=== PATIENT | female | born 1945 | race Caucasian/White ===

== ENCOUNTER → 2017-09-24 05:00 | Outpatient (REF) | payer MEDICARE, BC, MEDICAID, SELFPAY ==
[2017-09-24 11:21] LABS: Prothrombin Time Fingerstick 21.2 SEC (11.9-14.4)
== END ==
LOC: OLS.WCC 05:00
PROVIDERS: Visit Provider Family Medicine
DX: Z79.01 Long term (current) use of anticoagulants (principal)
CPT/HCPCS: 36416; 85610

== ENCOUNTER → 2017-10-01 05:00 | Outpatient (REF) | payer MEDICARE, BC, SELFPAY ==
[2017-10-01 08:45] LABS: Prothrombin Time Fingerstick 28.5 SEC (11.9-14.4)
== END ==
LOC: OLS.WCC 05:00
PROVIDERS: Visit Provider Family Medicine
DX: I48.91 Unspecified atrial fibrillation (principal); Z79.01 Long term (current) use of anticoagulants
CPT/HCPCS: 36416; 85610

== ENCOUNTER → 2017-11-30 05:30 | Outpatient (REF) | payer MEDICARE, BC, SELFPAY ==
[2017-11-30 09:34] LABS: International Normalized Ratio 1.5; Prothrombin Time (Protime)PT. 17.9 SECONDS (11.7-14.9)
== END ==
LOC: OLS.WCC 05:30
PROVIDERS: Visit Provider Family Medicine
DX: I48.91 Unspecified atrial fibrillation (principal); Z79.01 Long term (current) use of anticoagulants
CPT/HCPCS: 36415; 85610

== ENCOUNTER → 2017-12-07 05:00 | Outpatient (REF) | payer MEDICARE, BC, SELFPAY ==
[2017-12-07 09:27] LABS: International Normalized Ratio 1.8; Prothrombin Time (Protime)PT. 19.8 SECONDS (11.7-14.9)
== END ==
LOC: OLS.WCC 05:00
PROVIDERS: Visit Provider Family Medicine
DX: Z79.01 Long term (current) use of anticoagulants (principal)
CPT/HCPCS: 36415; 85610

== ENCOUNTER → 2017-12-28 04:00 | Outpatient (REF) | payer MEDICARE, BC, SELFPAY ==
[2017-12-28 07:51] LABS: ALB/GLOB Ratio 1.2 RATIO (0.9-2.4); AST(SGOT) 11 U/L (15-37); Alanine Aminotransfer ALT/SGPT 22 U/L (13-56); Albumin, Serum 3.3 g/dL (3.2-5.0); Alkaline Phosphatase 49 U/L (45-117); Anion Gap 10 (5-15); BUN 24 mg/dL (7-18); BUN/Creat Ratio 21.2 RATIO (10-20); Bilirubin, Direct 0.11 mg/dL (0.00-0.30); Calcium,Total 9.2 mg/dL (8.5-10.1); Chloride 103 mmol/L (98-107); Creatinine, Serum 1.13 mg/dL (0.55-1.02); EST Glomerular Filtration Rate 50 mL/min (>60); Est Glom Filt Rate - Afr Amer 61 mL/min (>60); Globulin 2.7 g/dL (2.2-4.2); Glucose 112 mg/dL (74-106); Potassium 3.9 mmol/L (3.5-5.1); Sodium Level 140 mmol/L (136-145)
[2017-12-28 07:53] LABS: Hemoglobin A1c 5.8 % (4.2-6.3)
[2017-12-28 08:21] LABS: International Normalized Ratio 2.5; Prothrombin Time (Protime)PT. 26.9 SECONDS (11.7-14.9)
== END ==
LOC: OLS.WCC 04:00
PROVIDERS: Visit Provider Family Medicine
DX: I48.91 Unspecified atrial fibrillation (principal); E11.9 Type 2 diabetes mellitus without complications; I10 Essential (primary) hypertension; E78.5 Hyperlipidemia, unspecified
CPT/HCPCS: 36415; 80053; 82248; 83036; 85610

== ENCOUNTER → 2018-01-25 05:00 | Outpatient (REF) | payer MEDICARE, BC, SELFPAY ==
[2018-01-25 09:19] LABS: International Normalized Ratio 2.4; Prothrombin Time (Protime)PT. 26.2 SECONDS (11.7-14.9)
== END ==
LOC: OLS.WCC 05:00
PROVIDERS: Visit Provider Family Medicine
DX: I48.91 Unspecified atrial fibrillation (principal); Z79.01 Long term (current) use of anticoagulants
CPT/HCPCS: 36415; 85610

== ENCOUNTER → 2018-02-28 05:00 | Outpatient (REF) | payer MEDICARE, BC, SELFPAY ==
[2018-02-28 08:31] LABS: Prothrombin Time Fingerstick 29.4 SEC (11.9-14.4)
== END ==
LOC: OLS.WCC 05:00
PROVIDERS: Visit Provider Family Medicine
DX: I48.91 Unspecified atrial fibrillation (principal); Z79.01 Long term (current) use of anticoagulants
CPT/HCPCS: 36416; 85610

== ENCOUNTER → 2018-04-01 05:00 | Outpatient (REF) | payer MEDICARE, BC, SELFPAY ==
[2018-04-01 09:47] LABS: International Normalized Ratio 2.4; Prothrombin Time (Protime)PT. 26.6 SECONDS (11.7-14.9)
== END ==
LOC: OLS.WCC 05:00
PROVIDERS: Visit Provider Family Medicine
DX: I48.91 Unspecified atrial fibrillation (principal); Z79.899 Other long term (current) drug therapy
CPT/HCPCS: 36415; 85610

== ENCOUNTER → 2018-04-30 05:00 | Outpatient (REF) | payer MEDICARE, BC, SELFPAY ==
[2018-04-30 08:46] LABS: Prothrombin Time Fingerstick 22.5 SEC (11.9-14.4)
== END ==
LOC: OLS.WCC 05:00
PROVIDERS: Visit Provider Family Medicine
DX: I48.91 Unspecified atrial fibrillation (principal); Z79.01 Long term (current) use of anticoagulants
CPT/HCPCS: 36416; 85610

== ENCOUNTER → 2018-05-31 05:00 | Outpatient (REF) | payer MEDICARE, BC, SELFPAY ==
[2018-05-31 09:26] LABS: Prothrombin Time Fingerstick 18.1 SEC (11.9-14.4)
== END ==
LOC: OLS.WCC 05:00
PROVIDERS: Visit Provider Family Medicine
DX: I48.91 Unspecified atrial fibrillation (principal); Z79.01 Long term (current) use of anticoagulants
CPT/HCPCS: 36416; 85610

== ENCOUNTER → 2018-07-01 05:00 | Outpatient (REF) | payer MEDICARE, BC, SELFPAY ==
[2018-07-01 08:20] LABS: Hematocrit 37.6 % (37-47); Hemoglobin 12.5 g/dl (12.0-15.0); Mean Corp Hgb Conc 33.2 g/gl (32-36); Mean Corpuscular Hgb 28.2 pg (27.0-32.0); Mean Corpuscular Volume 84.7 fL (81-99); Mean Platelet Vol. 9.5 fl (6.2-12.0); Platelet Count 245 K/mm3 (150-450); RBC Distribution Width CV 13.1 % (11.6-14.6); RBC Distribution Width SD 40.2 fl (35.1-43.9); Red Blood Count 4.44 M/mm3 (4.2-5.4)
[2018-07-01 08:21] LABS: Scan Indicated on CBC? Y/N NO
[2018-07-01 08:43] LABS: ALB/GLOB Ratio 1.1 RATIO (0.9-2.4); AST(SGOT) 12 U/L (15-37); Alanine Aminotransfer ALT/SGPT 19 U/L (13-56); Albumin, Serum 3.5 g/dL (3.2-5.0); Alkaline Phosphatase 61 U/L (45-117); Anion Gap 13 (5-15); BUN 16 mg/dL (7-18); BUN/Creat Ratio 14.8 RATIO (10-20); Bilirubin, Direct 0.14 mg/dL (0.00-0.30); Calcium,Total 9.2 mg/dL (8.5-10.1); Chloride 102 mmol/L (98-107); Creatinine, Serum 1.08 mg/dL (0.55-1.02); EST Glomerular Filtration Rate 53 mL/min (>60); Est Glom Filt Rate - Afr Amer 64 mL/min (>60); Globulin 3.2 g/dL (2.2-4.2); Glucose 90 mg/dL (74-106); Potassium 3.8 mmol/L (3.5-5.1); Protein, Total 6.7 g/dL (6.4-8.2); Sodium Level 143 mmol/L (136-145); T4 Free Direct 1.09 ng/dL (0.76-1.46); Thyroid Stim Hormone (TSH) 1.08 uIU/mL (0.358-3.74)
[2018-07-01 09:16] LABS: Hemoglobin A1c 5.6 % (4.2-6.3)
== END ==
LOC: OLS.WCC 05:00
PROVIDERS: Visit Provider Family Medicine
DX: I48.91 Unspecified atrial fibrillation (principal); E11.9 Type 2 diabetes mellitus without complications; I10 Essential (primary) hypertension; Z79.01 Long term (current) use of anticoagulants
CPT/HCPCS: 36415; 80053; 82248; 83036; 84439; 84443; 85027

== ENCOUNTER → 2018-07-19 14:35 | Outpatient (REF) | payer MEDICARE, SELFPAY ==
[2018-07-19 16:08] LABS: International Normalized Ratio 1.7; Prothrombin Time (Protime)PT. 19.8 SECONDS (11.7-14.9)
== END ==
LOC: OLS.WCC 14:35
PROVIDERS: Visit Provider Family Medicine
DX: I48.91 Unspecified atrial fibrillation (principal)
CPT/HCPCS: 36415; 85610

== ENCOUNTER → 2018-07-31 05:00 | Outpatient (REF) | payer MEDICARE, BC, SELFPAY ==
[2018-07-31 09:06] LABS: Prothrombin Time Fingerstick 17.8 SEC (11.9-14.4)
== END ==
LOC: OLS.WCC 05:00
PROVIDERS: Visit Provider Family Medicine
DX: I48.91 Unspecified atrial fibrillation (principal); Z79.01 Long term (current) use of anticoagulants
CPT/HCPCS: 36416; 85610

== ENCOUNTER → 2018-08-14 05:00 | Outpatient (REF) | payer MEDICARE, BC, SELFPAY ==
[2018-08-14 08:40] LABS: Prothrombin Time Fingerstick 27.4 SEC (11.9-14.4)
== END ==
LOC: OLS.WCC 05:00
PROVIDERS: Visit Provider Family Medicine
DX: Z79.01 Long term (current) use of anticoagulants (principal)
CPT/HCPCS: 36416; 85610

== ENCOUNTER → 2018-08-30 05:00 | Outpatient (REF) | payer MEDICARE, SELFPAY ==
[2018-08-30 07:11] LABS: Prothrombin Time Fingerstick 20.7 SEC (11.9-14.4)
== END ==
LOC: OLS.WCC 05:00
PROVIDERS: Visit Provider Family Medicine
DX: I48.91 Unspecified atrial fibrillation (principal); E11.9 Type 2 diabetes mellitus without complications; I10 Essential (primary) hypertension
CPT/HCPCS: 36416; 85610

== ENCOUNTER → 2018-09-30 03:00 | Outpatient (REF) | payer BC, MEDICARE, MEDICAID, SELFPAY ==
[2018-09-30 09:00] LABS: Prothrombin Time Fingerstick 18.2 SEC (11.9-14.4)
== END ==
LOC: OLS.WCC 03:00
PROVIDERS: Visit Provider Family Medicine
DX: I48.91 Unspecified atrial fibrillation (principal); Z79.01 Long term (current) use of anticoagulants
CPT/HCPCS: 36416; 85610

== ENCOUNTER → 2018-10-31 05:00 | Outpatient (REF) | payer BC, MEDICARE, MEDICAID, SELFPAY ==
[2018-10-31 08:11] LABS: Prothrombin Time Fingerstick 17.6 SEC (11.9-14.4)
== END ==
LOC: OLS.WCC 05:00
PROVIDERS: Visit Provider Family Medicine
DX: I48.91 Unspecified atrial fibrillation (principal); Z79.01 Long term (current) use of anticoagulants
CPT/HCPCS: 36416; 85610

== ENCOUNTER → 2018-11-07 04:30 | Outpatient (REF) | payer BC, MEDICARE, SELFPAY ==
[2018-11-07 07:55] LABS: Prothrombin Time Fingerstick 21.7 SEC (11.9-14.4)
== END ==
LOC: OLS.WCC 04:30
PROVIDERS: Visit Provider Family Medicine
DX: Z79.01 Long term (current) use of anticoagulants (principal)
CPT/HCPCS: 36416; 85610

== ENCOUNTER → 2018-11-29 05:00 | Outpatient (REF) | payer BC, MEDICARE, MEDICAID, SELFPAY ==
[2018-11-29 07:52] LABS: Prothrombin Time Fingerstick 18.5 SEC (11.9-14.4)
== END ==
LOC: OLS.WCC 05:00
PROVIDERS: Visit Provider Family Medicine
DX: I48.91 Unspecified atrial fibrillation (principal); Z79.01 Long term (current) use of anticoagulants
CPT/HCPCS: 36416; 85610

== ENCOUNTER → 2018-12-27 04:00 | Outpatient (REF) | payer MEDICARE, MEDICAID, SELFPAY ==
[2018-12-27 09:22] LABS: Hematocrit 37.8 % (37-47); Hemoglobin 12.2 g/dl (12.0-15.0); Mean Corp Hgb Conc 32.3 g/gl (32-36); Mean Corpuscular Hgb 27.9 pg (27.0-32.0); Mean Corpuscular Volume 86.3 fL (81-99); Mean Platelet Vol. 9.4 fl (6.2-12.0); Platelet Count 241 K/mm3 (150-450); RBC Distribution Width CV 13.2 % (11.6-14.6); RBC Distribution Width SD 41.8 fl (35.1-43.9); Red Blood Count 4.38 M/mm3 (4.2-5.4); White Blood Count 8.3 K/mm3 (4.4-11.0)
[2018-12-27 09:25] LABS: Scan Indicated on CBC? Y/N NO
[2018-12-27 09:36] LABS: ALB/GLOB Ratio 1.1 RATIO (0.9-2.4); AST(SGOT) 15 U/L (15-37); Alanine Aminotransfer ALT/SGPT 21 U/L (13-56); Albumin, Serum 3.5 g/dL (3.2-5.0); Alkaline Phosphatase 58 U/L (45-117); Anion Gap 8 (5-15); BUN 18 mg/dL (7-18); BUN/Creat Ratio 15.3 RATIO (10-20); Bilirubin, Direct 0.15 mg/dL (0.00-0.30); Calcium,Total 9.1 mg/dL (8.5-10.1); Chloride 99 mmol/L (98-107); Creatinine, Serum 1.18 mg/dL (0.55-1.02); EST Glomerular Filtration Rate 48 mL/min (>60); Est Glom Filt Rate - Afr Amer 58 mL/min (>60); Globulin 3.1 g/dL (2.2-4.2); Glucose 97 mg/dL (74-106); Protein, Total 6.6 g/dL (6.4-8.2); Sodium Level 137 mmol/L (136-145)
[2018-12-27 09:46] LABS: Hemoglobin A1c 5.8 % (4.2-6.3)
== END ==
LOC: OLS.WCC 04:00
PROVIDERS: Visit Provider Family Medicine
DX: E11.9 Type 2 diabetes mellitus without complications (principal); I10 Essential (primary) hypertension
CPT/HCPCS: 36415; 80053; 82248; 83036; 85027

== ENCOUNTER → 2018-12-30 04:00 | Outpatient (REF) | payer MEDICARE, MEDICAID, SELFPAY ==
[2018-12-31 15:50] LABS: Prothrombin Time Fingerstick 21.4 SEC (11.9-14.4)
== END ==
LOC: OLS.WCC 04:00
PROVIDERS: Visit Provider Family Medicine
DX: Z79.01 Long term (current) use of anticoagulants (principal)
CPT/HCPCS: 36416; 85610

== ENCOUNTER → 2019-01-30 04:45 | Outpatient (REF) | payer MEDICARE, MEDICAID, SELFPAY ==
[2019-01-30 08:21] LABS: Prothrombin Time Fingerstick 22.6 SEC (11.9-14.4)
== END ==
LOC: OLS.WCC 04:45
PROVIDERS: Visit Provider Family Medicine
DX: I48.91 Unspecified atrial fibrillation (principal); Z79.01 Long term (current) use of anticoagulants
CPT/HCPCS: 36416; 85610

== ENCOUNTER → 2019-02-28 05:00 | Outpatient (REF) | payer MEDICARE, MEDICAID, SELFPAY ==
[2019-02-28 09:46] LABS: Prothrombin Time Fingerstick 21.3 SEC (11.9-14.4)
== END ==
LOC: OLS.WCC 05:00
PROVIDERS: Visit Provider Family Medicine
DX: I48.91 Unspecified atrial fibrillation (principal); E11.9 Type 2 diabetes mellitus without complications; Z79.01 Long term (current) use of anticoagulants
CPT/HCPCS: 36416; 85610

== ENCOUNTER → 2019-03-22 | Outpatient (REF) | payer MEDICARE, MEDICAID, SELFPAY ==
[2019-03-22 14:36] LABS: Color, Urine Yellow (Yellow); Glucose, Dipstick Normal (Normal); Ketone-Dipstick Negative (Negative); Leukocyte Esterase-Dipstick 500 /ul (Negative); Nitrite-Dipstick Negative (Negative); Occult Blood-Urine 10 /ul (Negative); Protein-Dipstick Negative (Negative); Urine Bilirubin Dipstick Negative (Negative); Urine Clarity Cloudy (Clear); Urine Urobilinogen Normal (Normal)
== END | disposition home or self-care (01) ==
LOC: OLS.WCC 13:40
DX: N39.0 Urinary tract infection, site not specified (principal)
CPT/HCPCS: 81002; 87077; 87086; 87088; 87186

== ENCOUNTER → 2019-03-24 | Outpatient (REF) | payer MEDICARE, MEDICAID, SELFPAY ==
[2019-03-24 08:45] LABS: Anion Gap 9 (5-15); BUN 17 mg/dL (7-18); BUN/Creat Ratio 14.7 RATIO (10-20); Calcium,Total 9.1 mg/dL (8.5-10.1); Chloride 100 mmol/L (98-107); Creatinine, Serum 1.16 mg/dL (0.55-1.02); EST Glomerular Filtration Rate 49 mL/min (>60); Est Glom Filt Rate - Afr Amer 59 mL/min (>60); Glucose 100 mg/dL (74-106); Sodium Level 139 mmol/L (136-145)
[2019-03-24 08:56] LABS: Absolute Neutrophil Count 3.7 X10^3/uL (2.0-7.7); Basophil# 0.03 X10^3/uL; Basophil% 0.4 % (0-1); Eosinophil# 0.54 X10^3/uL; Eosinophils% 7.2 % (0-5); Hematocrit 35.8 % (37-47); Hemoglobin 11.9 g/dl (12.0-15.0); Lymphocyte % 34.4 % (19-41); Mean Corp Hgb Conc 33.2 g/gl (32-36); Mean Corpuscular Hgb 28.3 pg (27.0-32.0); Mean Corpuscular Volume 85.2 fL (81-99); Mean Platelet Vol. 9.1 fl (6.2-12.0); Monocyte# 0.71 X10^3/uL; Monocyte% 9.4 % (0-10); Neutrophil # 3.65 X10^3/uL (2.7-7.7); Neutrophil % 48.3 % (47-70); Platelet Count 240 K/mm3 (150-450); RBC Distribution Width CV 13.5 % (11.6-14.6); RBC Distribution Width SD 42.1 fl (35.1-43.9); White Blood Count 7.6 K/mm3 (4.4-11.0)
[2019-03-24 09:02] LABS: POSITIVE COUNT NO; POSITIVE DIFFERENTIAL NO; POSITIVE MORPHOLOGY NO
== END | disposition home or self-care (01) ==
LOC: OLS.WCC 04:50
PROVIDERS: Visit Provider Family Medicine
DX: N39.0 Urinary tract infection, site not specified (principal)
CPT/HCPCS: 36415; 80048; 85025

== ENCOUNTER → 2019-04-01 | Outpatient (REF) | payer MEDICARE, MEDICAID, SELFPAY ==
[2019-04-01 07:00] LABS: Prothrombin Time Fingerstick 17.5 SEC (11.9-14.4)
== END | disposition home or self-care (01) ==
LOC: OLS.WCC 05:00
PROVIDERS: Visit Provider Family Medicine
DX: I48.91 Unspecified atrial fibrillation (principal); Z79.01 Long term (current) use of anticoagulants
CPT/HCPCS: 36416; 85610

== ENCOUNTER → 2019-04-15 | Outpatient (REF) | payer MEDICARE, MEDICAID, SELFPAY ==
[2019-04-15 16:06] LABS: Prothrombin Time Fingerstick 22.1 SEC (11.9-14.4)
== END | disposition home or self-care (01) ==
LOC: OLS.WCC 05:00
PROVIDERS: Visit Provider Family Medicine
DX: Z79.01 Long term (current) use of anticoagulants (principal)
CPT/HCPCS: 36416; 85610

== ENCOUNTER → 2019-04-30 03:40 | Outpatient (REF) | payer MEDICARE, MEDICAID, SELFPAY ==
[2019-04-30 08:34] LABS: Glucose, Dipstick 50 mg/dl (Normal); Ketone-Dipstick Negative (Negative); Leukocyte Esterase-Dipstick 100 /ul (Negative); Nitrite-Dipstick Negative (Negative); Occult Blood-Urine 50 /ul (Negative); Protein-Dipstick Negative (Negative); Urine Bilirubin Dipstick Negative (Negative); Urine Urobilinogen Normal (Normal)
[2019-04-30 08:36] LABS: Color, Urine Yellow (Yellow); Urine Clarity Clear (Clear)
== END ==
LOC: OLS.WCC 03:40
PROVIDERS: Visit Provider Family Medicine
DX: F41.9 Anxiety disorder, unspecified (principal)
CPT/HCPCS: 81002; 87086; 87088

== ENCOUNTER → 2019-05-01 05:00 | Outpatient (REF) | payer MEDICARE, MEDICAID, SELFPAY ==
[2019-05-01 07:55] LABS: Prothrombin Time Fingerstick 21.7 SEC (11.9-14.4)
== END ==
LOC: OLS.WCC 05:00
PROVIDERS: Visit Provider Family Medicine
DX: I10 Essential (primary) hypertension (principal); I48.91 Unspecified atrial fibrillation; E78.5 Hyperlipidemia, unspecified; Z79.01 Long term (current) use of anticoagulants
CPT/HCPCS: 36416; 85610

== ENCOUNTER → 2019-06-02 05:00 | Outpatient (REF) | payer MEDICARE, MEDICAID, SELFPAY ==
[2019-06-02 11:02] LABS: Prothrombin Time Fingerstick 23.9 SEC (11.9-14.4)
== END ==
LOC: OLS.WCC 05:00
PROVIDERS: Visit Provider Family Medicine
DX: I48.91 Unspecified atrial fibrillation (principal); Z79.01 Long term (current) use of anticoagulants
CPT/HCPCS: 36416; 85610

== ENCOUNTER → 2019-07-01 05:00 | Outpatient (REF) | payer MEDICARE, MEDICAID, SELFPAY ==
[2019-07-01 07:51] LABS: Hematocrit 34.8 % (37-47); Hemoglobin 11.7 g/dL (12.0-15.0); Mean Corp Hgb Conc 33.6 g/dL (32-36); Mean Corpuscular Hgb 28.7 pg (27.0-32.0); Mean Corpuscular Volume 85.3 fL (81-99); Mean Platelet Vol. 9.6 fl (6.2-12.0); Platelet Count 228 K/mm3 (150-450); RBC Distribution Width SD 40.2 fl (35.1-43.9); Red Blood Count 4.08 M/mm3 (4.2-5.4); White Blood Count 8.4 K/mm3 (4.4-11.0)
[2019-07-01 07:52] LABS: International Normalized Ratio 2.6; Prothrombin Time (Protime)PT. 28.1 SECONDS (11.7-14.9)
[2019-07-01 08:05] LABS: Hemoglobin A1c 5.3 % (4.2-6.3)
[2019-07-01 08:10] LABS: ALB/GLOB Ratio 0.9 RATIO (0.9-2.4); AST(SGOT) 9 U/L (15-37); Alanine Aminotransfer ALT/SGPT 11 U/L (13-56); Albumin, Serum 2.9 g/dL (3.2-5.0); Alkaline Phosphatase 59 U/L (45-117); Anion Gap 6 (5-15); BUN 14 mg/dL (7-18); BUN/Creat Ratio 13.6 RATIO (10-20); Bilirubin, Direct 0.11 mg/dL (0.00-0.30); Calcium,Total 8.8 mg/dL (8.5-10.1); Chloride 100 mmol/L (98-107); Creatinine, Serum 1.03 mg/dL (0.55-1.02); EST Glomerular Filtration Rate 56 mL/min (>60); Est Glom Filt Rate - Afr Amer 67 mL/min (>60); Globulin 3.3 g/dL (2.2-4.2); Glucose 104 mg/dL (74-106); Potassium 3.9 mmol/L (3.5-5.1); Protein, Total 6.2 g/dL (6.4-8.2); Sodium Level 133 mmol/L (136-145); T4 Free Direct 1.08 ng/dL (0.76-1.46); Thyroid Stim Hormone (TSH) 1.04 uIU/mL (0.358-3.74)
== END ==
LOC: OLS.WCC 05:00
PROVIDERS: Visit Provider Family Medicine
DX: I48.91 Unspecified atrial fibrillation (principal); E11.9 Type 2 diabetes mellitus without complications; I10 Essential (primary) hypertension; E78.5 Hyperlipidemia, unspecified; Z79.01 Long term (current) use of anticoagulants
CPT/HCPCS: 36415; 80053; 82248; 83036; 84439; 84443; 85027; 85610

== ENCOUNTER → 2019-07-31 | Outpatient (REF) | payer MEDICARE, MEDICAID, SELFPAY ==
[2019-07-31 14:18] LABS: Prothrombin Time Fingerstick 25.5 SEC (11.9-14.4)
== END | disposition home or self-care (01) ==
LOC: OLS.WCC 05:00
PROVIDERS: Visit Provider Family Medicine
DX: I48.91 Unspecified atrial fibrillation (principal); Z79.01 Long term (current) use of anticoagulants
CPT/HCPCS: 36416; 85610

== ENCOUNTER → 2019-08-10 14:00 | Outpatient (REF) | payer MEDICARE, MEDICAID, SELFPAY | LOC: OLS.WCC 14:00 | PROVIDERS: Visit Provider Family Medicine | DX: N39.0 Urinary tract infection, site not specified (principal) | CPT/HCPCS: 87077; 87086; 87088; 87186 ==

== ENCOUNTER → 2019-08-13 05:00 | Outpatient (REF) | payer MEDICARE, MEDICAID, SELFPAY ==
[2019-08-13 10:03] LABS: Prothrombin Time Fingerstick 25.3 SEC (11.9-14.4)
== END ==
LOC: OLS.WCC 05:00
PROVIDERS: Visit Provider Family Medicine
DX: Z79.01 Long term (current) use of anticoagulants (principal)
CPT/HCPCS: 36416; 85610

== ENCOUNTER → 2019-08-16 06:00 | Outpatient (REF) | payer MEDICARE, MEDICAID, SELFPAY ==
[2019-08-16 08:54] LABS: Prothrombin Time Fingerstick 25.4 SEC (11.9-14.4)
== END ==
LOC: OLS.WCC 06:00
PROVIDERS: Visit Provider Family Medicine
DX: Z79.01 Long term (current) use of anticoagulants (principal)
CPT/HCPCS: 36416; 85610

== ENCOUNTER → 2019-08-29 05:00 | Outpatient (REF) | payer MEDICARE, MEDICAID, SELFPAY ==
[2019-08-29 08:45] LABS: Prothrombin Time Fingerstick 23.9 SEC (11.9-14.4)
== END ==
LOC: OLS.WCC 05:00
PROVIDERS: Visit Provider Family Medicine
DX: I48.91 Unspecified atrial fibrillation (principal); E11.9 Type 2 diabetes mellitus without complications; I10 Essential (primary) hypertension; E78.5 Hyperlipidemia, unspecified
CPT/HCPCS: 36416; 85610

== ENCOUNTER → 2019-09-30 05:00 | Outpatient (REF) | payer MEDICARE, MEDICAID, SELFPAY ==
[2019-09-30 07:25] LABS: Prothrombin Time Fingerstick 31.5 SEC (11.9-14.4)
== END ==
LOC: OLS.WCC 05:00
PROVIDERS: Visit Provider Family Medicine
DX: Z79.01 Long term (current) use of anticoagulants (principal)
CPT/HCPCS: 36416; 85610

== ENCOUNTER → 2019-10-31 05:00 | Outpatient (REF) | payer MEDICARE, MEDICAID, SELFPAY ==
[2019-10-31 08:46] LABS: Prothrombin Time Fingerstick 27.1 SEC (11.9-14.4)
== END ==
LOC: OLS.WCC 05:00
PROVIDERS: Visit Provider Family Medicine
DX: I48.91 Unspecified atrial fibrillation (principal); Z79.01 Long term (current) use of anticoagulants
CPT/HCPCS: 36416; 85610

== ENCOUNTER → 2019-12-01 05:00 | Outpatient (REF) | payer MEDICARE, MEDICAID, SELFPAY ==
[2019-12-01 08:41] LABS: Prothrombin Time Fingerstick 26.5 SEC (11.9-14.4)
== END ==
LOC: OLS.WCC 05:00
PROVIDERS: Visit Provider Family Medicine
DX: I48.91 Unspecified atrial fibrillation (principal); Z79.899 Other long term (current) drug therapy; Z79.01 Long term (current) use of anticoagulants
CPT/HCPCS: 36416; 85610

== ENCOUNTER → 2019-12-30 05:00 | Outpatient (REF) | payer MEDICARE, MEDICAID, SELFPAY ==
[2019-12-30 08:26] LABS: ALB/GLOB Ratio 0.8 RATIO (0.9-2.4); AST(SGOT) 6 U/L (15-37); Alanine Aminotransfer ALT/SGPT 13 U/L (13-56); Albumin, Serum 2.8 g/dL (3.2-5.0); Alkaline Phosphatase 64 U/L (45-117); Anion Gap 5 (5-15); BUN 15 mg/dL (7-18); BUN/Creat Ratio 13.9 RATIO (10-20); Chloride 102 mmol/L (98-107); Creatinine, Serum 1.08 mg/dL (0.55-1.02); EST Glomerular Filtration Rate 53 mL/min (>60); Est Glom Filt Rate - Afr Amer 64 mL/min (>60); Globulin 3.3 g/dL (2.2-4.2); Glucose 106 mg/dL (74-106); Protein, Total 6.1 g/dL (6.4-8.2); Sodium Level 134 mmol/L (136-145)
[2019-12-30 08:33] LABS: Hemoglobin A1c 5.8 % (4.2-6.3)
== END ==
LOC: OLS.WCC 05:00
PROVIDERS: Visit Provider Family Medicine
DX: I48.91 Unspecified atrial fibrillation (principal); E11.9 Type 2 diabetes mellitus without complications; I10 Essential (primary) hypertension; E78.5 Hyperlipidemia, unspecified; Z79.899 Other long term (current) drug therapy
CPT/HCPCS: 36415; 80053; 82248; 83036

== ENCOUNTER → 2019-12-31 05:00 | Outpatient (REF) | payer MEDICARE, MEDICAID, SELFPAY ==
[2019-12-31 07:51] LABS: Prothrombin Time Fingerstick 28.5 SEC (11.9-14.4)
== END ==
LOC: OLS.WCC 05:00
PROVIDERS: Visit Provider Family Medicine
DX: Z79.01 Long term (current) use of anticoagulants (principal)
CPT/HCPCS: 36416; 85610

== ENCOUNTER → 2020-02-02 05:00 | Outpatient (REF) | payer MEDICARE, MEDICAID, SELFPAY ==
[2020-02-02 08:36] LABS: Prothrombin Time Fingerstick 24.6 SEC (11.9-14.4)
== END ==
LOC: OLS.WCC 05:00
PROVIDERS: Visit Provider Family Medicine
DX: I48.91 Unspecified atrial fibrillation (principal); Z79.899 Other long term (current) drug therapy; Z79.01 Long term (current) use of anticoagulants
CPT/HCPCS: 36416; 85610

== ENCOUNTER → 2020-02-12 20:15 | Outpatient (REF) | payer MEDICARE, MEDICAID, SELFPAY ==
[2020-02-13 07:05] LABS: Color, Urine Yellow (Yellow); Glucose, Dipstick Normal (Normal); Ketone-Dipstick Negative (Negative); Leukocyte Esterase-Dipstick Negative /ul (Negative); Nitrite-Dipstick Positive (Negative); Occult Blood-Urine Negative /ul (Negative); Protein-Dipstick Negative (Negative); Urine Bilirubin Dipstick Negative (Negative); Urine Clarity Clear (Clear); Urine Urobilinogen Normal (Normal)
== END ==
LOC: OLS.WCC 20:15
PROVIDERS: Visit Provider Family Medicine
DX: I48.91 Unspecified atrial fibrillation (principal); F03.90 Unspecified dementia, unspecified severity, without behavioral disturbance, psychotic disturbance, mood disturbance, and anxiety; E11.9 Type 2 diabetes mellitus without complications; R50.9 Fever, unspecified; Z79.01 Long term (current) use of anticoagulants
CPT/HCPCS: 81002; 87086; 87088; 87186

== ENCOUNTER → 2020-02-17 05:00 | Outpatient (REF) | payer MEDICARE, MEDICAID, SELFPAY ==
[2020-02-17 08:35] LABS: Prothrombin Time Fingerstick 25.7 SEC (11.9-14.4)
== END ==
LOC: OLS.WCC 05:00
PROVIDERS: Visit Provider Family Medicine
DX: Z79.899 Other long term (current) drug therapy (principal); I48.91 Unspecified atrial fibrillation
CPT/HCPCS: 36416; 85610

== ENCOUNTER → 2020-03-03 05:00 | Outpatient (REF) | payer MEDICARE, MEDICAID, SELFPAY ==
[2020-03-03 09:35] LABS: International Normalized Ratio 2.9; Prothrombin Time (Protime)PT. 30.2 SECONDS (11.7-14.9)
== END ==
LOC: OLS.WCC 05:00
PROVIDERS: Visit Provider Family Medicine
DX: I48.91 Unspecified atrial fibrillation (principal); Z79.899 Other long term (current) drug therapy; Z79.01 Long term (current) use of anticoagulants
CPT/HCPCS: 36415; 85610

== ENCOUNTER → 2020-04-05 05:00 | Outpatient (REF) | payer MEDICARE, MEDICAID, SELFPAY ==
[2020-04-05 08:16] LABS: Prothrombin Time Fingerstick 29.8 SEC (11.9-14.4)
== END ==
LOC: OLS.WCC 05:00
PROVIDERS: Visit Provider Family Medicine
DX: I48.91 Unspecified atrial fibrillation (principal); Z79.899 Other long term (current) drug therapy; Z79.01 Long term (current) use of anticoagulants
CPT/HCPCS: 36416; 85610

== ENCOUNTER → 2020-05-03 05:00 | Outpatient (REF) | payer MEDICARE, MEDICAID, SELFPAY ==
[2020-05-03 07:51] LABS: Prothrombin Time Fingerstick 20.4 SEC (11.9-14.4)
== END ==
LOC: OLS.WCC 05:00
PROVIDERS: Visit Provider Family Medicine
DX: I48.91 Unspecified atrial fibrillation (principal); Z79.01 Long term (current) use of anticoagulants
CPT/HCPCS: 36416; 85610

== ENCOUNTER → 2020-06-03 05:00 | Outpatient (REF) | payer MEDICARE, MEDICAID, SELFPAY ==
[2020-06-03 08:46] LABS: Prothrombin Time Fingerstick 24.5 SEC (11.9-14.4)
== END ==
LOC: OLS.WCC 05:00
PROVIDERS: Visit Provider Family Medicine
DX: I48.91 Unspecified atrial fibrillation (principal); Z79.01 Long term (current) use of anticoagulants
CPT/HCPCS: 36416; 85610

== ENCOUNTER → 2020-06-16 13:22 | Outpatient (REF) | payer MEDICARE, MEDICAID, SELFPAY | LOC: OLS.WCC 13:22 | PROVIDERS: Referring Provider Family Medicine; Visit Provider Family Medicine | DX: Z20.828 Contact with and (suspected) exposure to other viral communicable diseases (principal) | CPT/HCPCS: 87635; U0003 ==

== ENCOUNTER → 2020-06-22 13:00 | Outpatient (REF) | payer MEDICARE, MEDICAID, SELFPAY | LOC: OLS.WCC 13:00 | PROVIDERS: Referring Provider Family Medicine; Visit Provider Family Medicine | DX: Z20.828 Contact with and (suspected) exposure to other viral communicable diseases (principal) | CPT/HCPCS: 87635; U0003 ==

== ENCOUNTER → 2020-07-07 13:20 | Outpatient (REF) | payer MEDICARE, MEDICAID, SELFPAY | LOC: LABSPEC 13:20 | PROVIDERS: Referring Provider Family Medicine; Visit Provider Family Medicine | DX: Z20.828 Contact with and (suspected) exposure to other viral communicable diseases (principal) | CPT/HCPCS: 87635; C9803; U0003 ==

== ENCOUNTER → 2020-07-12 11:15 | Outpatient (REF) | payer MEDICARE, MEDICAID, SELFPAY ==
[2020-07-12 13:30] LABS: Hematocrit 41.5 % (37-47); Hemoglobin 13.6 g/dL (12.0-15.0); Mean Corp Hgb Conc 32.8 g/dL (32-36); Mean Corpuscular Hgb 28.3 pg (27.0-32.0); Mean Corpuscular Volume 86.5 fL (81-99); Mean Platelet Vol. 9.6 fl (6.2-12.0); Platelet Count 312 K/mm3 (150-450); RBC Distribution Width CV 13.1 % (11.6-14.6); RBC Distribution Width SD 40.5 fl (35.1-43.9); White Blood Count 10.3 K/mm3 (4.4-11.0)
[2020-07-12 13:32] LABS: Prothrombin Time (Protime)PT. 38.5 SECONDS (11.7-14.9)
[2020-07-12 13:52] LABS: Hemoglobin A1c 5.7 % (3.8-5.6)
[2020-07-12 15:47] LABS: ALB/GLOB Ratio 0.9 RATIO (0.9-2.4); AST(SGOT) 13 U/L (15-37); Alanine Aminotransfer ALT/SGPT 16 U/L (13-56); Albumin, Serum 3.6 g/dL (3.2-5.0); Alkaline Phosphatase 62 U/L (45-117); BUN 17 mg/dL (7-18); Calcium,Total 9.3 mg/dL (8.5-10.1); Creatinine, Serum 1.13 mg/dL (0.55-1.02); Globulin 3.8 g/dL (2.2-4.2); Glucose 90 mg/dL (74-106); Protein, Total 7.4 g/dL (6.4-8.2)
[2020-07-12 15:48] LABS: Anion Gap 9 (5-15); Bilirubin, Direct 0.14 mg/dL (0.00-0.30); Chloride 105 mmol/L (98-107); Potassium 3.7 mmol/L (3.5-5.1); Sodium Level 139 mmol/L (136-145); T4 Total, Thyroxin 9.8 ug/dL (4.8-13.9); Thyroid Stim Hormone (TSH) 0.77 uIU/mL (0.358-3.74)
[2020-07-12 16:18] LABS: EST Glomerular Filtration Rate 50 mL/min (>60); Est Glom Filt Rate - Afr Amer 60 mL/min (>60)
== END ==
LOC: OLS.WCC 11:15
PROVIDERS: Visit Provider Family Medicine
DX: I48.91 Unspecified atrial fibrillation (principal); E11.9 Type 2 diabetes mellitus without complications; I10 Essential (primary) hypertension; E78.5 Hyperlipidemia, unspecified
CPT/HCPCS: 80053; 82248; 83036; 84436; 84443; 85027; 85610

== ENCOUNTER → 2020-07-14 12:40 | Outpatient (REF) | payer MEDICARE, MEDICAID, SELFPAY | LOC: OLS.WCC 12:40 | PROVIDERS: Visit Provider Family Medicine | DX: Z20.828 Contact with and (suspected) exposure to other viral communicable diseases (principal) | CPT/HCPCS: 87635; U0003 ==

== ENCOUNTER → 2020-07-20 15:10 | Outpatient (REF) | payer MEDICARE, MEDICAID, SELFPAY ==
[2020-07-20 17:54] LABS: International Normalized Ratio 1.9; Prothrombin Time (Protime)PT. 20.8 SECONDS (11.7-14.9)
== END ==
LOC: OLS.WCC 15:10
PROVIDERS: Referring Provider Family Medicine; Visit Provider Family Medicine
DX: Z79.899 Other long term (current) drug therapy (principal); I48.91 Unspecified atrial fibrillation
CPT/HCPCS: 85610

== ENCOUNTER → 2020-08-03 05:00 | Outpatient (REF) | payer MEDICARE, MEDICAID, SELFPAY ==
[2020-08-03 09:30] LABS: Prothrombin Time Fingerstick 25.4 SEC (11.9-14.4)
== END ==
LOC: OLS.WCC 05:00
PROVIDERS: Referring Provider Family Medicine; Visit Provider Family Medicine
DX: I48.91 Unspecified atrial fibrillation (principal); Z79.01 Long term (current) use of anticoagulants
CPT/HCPCS: 36416; 85610

== ENCOUNTER → 2020-08-04 13:55 | Outpatient (REF) | LOC: OLS.WCC 13:55 | PROVIDERS: Visit Provider Family Medicine | DX: Z20.828 Contact with and (suspected) exposure to other viral communicable diseases (principal) | CPT/HCPCS: 87635; U0003 ==

== ENCOUNTER → 2020-08-09 12:10 | Outpatient (REF) | payer MEDICARE, MEDICAID, SELFPAY | LOC: OLS.WCC 12:10 | PROVIDERS: Visit Provider Family Medicine | DX: Z20.828 Contact with and (suspected) exposure to other viral communicable diseases (principal) | CPT/HCPCS: 87635; U0003 ==

== ENCOUNTER → 2020-08-16 11:50 | Outpatient (REF) | payer MEDICARE, MEDICAID, SELFPAY | LOC: OLS.WCC 11:50 | PROVIDERS: Visit Provider Family Medicine | DX: Z20.828 Contact with and (suspected) exposure to other viral communicable diseases (principal) | CPT/HCPCS: 87635; U0003 ==

== ENCOUNTER → 2020-08-19 12:28 | Outpatient (REF) | payer MEDICARE, MEDICAID, SELFPAY | LOC: OLS.WCC 12:28 | PROVIDERS: Visit Provider Family Medicine | DX: Z20.828 Contact with and (suspected) exposure to other viral communicable diseases (principal) | CPT/HCPCS: 87635; U0003 ==

== ENCOUNTER → 2020-09-03 05:00 | Outpatient (REF) | payer MEDICARE, MEDICAID, SELFPAY ==
[2020-09-03 16:25] LABS: Prothrombin Time Fingerstick 19.5 SEC (11.9-14.4)
== END ==
LOC: OLS.WCC 05:00
PROVIDERS: Visit Provider Family Medicine
DX: I48.91 Unspecified atrial fibrillation (principal); Z79.899 Other long term (current) drug therapy; Z79.01 Long term (current) use of anticoagulants
CPT/HCPCS: 36416; 85610

== ENCOUNTER → 2020-10-04 05:15 | Outpatient (REF) | payer MEDICARE, MEDICAID, SELFPAY ==
[2020-10-04 07:50] LABS: Prothrombin Time Fingerstick 21.1 SEC (11.9-14.4)
== END ==
LOC: OLS.WCC 05:15
PROVIDERS: Referring Provider Family Medicine; Visit Provider Family Medicine
DX: I48.91 Unspecified atrial fibrillation (principal); Z79.01 Long term (current) use of anticoagulants
CPT/HCPCS: 36416; 85610

== ENCOUNTER → 2020-11-03 05:00 | Outpatient (REF) | payer MEDICARE, MEDICAID, SELFPAY ==
[2020-11-03 08:00] LABS: Prothrombin Time Fingerstick 26.1 SEC (11.9-14.4)
== END ==
LOC: OLS.WCC 05:00
PROVIDERS: Visit Provider Family Medicine
DX: I48.91 Unspecified atrial fibrillation (principal); Z79.01 Long term (current) use of anticoagulants
CPT/HCPCS: 36416; 85610

== ENCOUNTER → 2020-12-03 05:00 | Outpatient (REF) | payer MEDICARE, MEDICAID, SELFPAY ==
[2020-12-03 10:01] LABS: Prothrombin Time Fingerstick 23.9 SEC (11.9-14.4)
== END ==
LOC: OLS.WCC 05:00
PROVIDERS: Visit Provider Family Medicine
DX: Z79.899 Other long term (current) drug therapy (principal); Z79.01 Long term (current) use of anticoagulants
CPT/HCPCS: 36416; 85610

== ENCOUNTER → 2021-01-03 05:00 | Outpatient (REF) | payer MEDICARE, MEDICAID, SELFPAY ==
[2021-01-03 08:08] LABS: International Normalized Ratio 1.7; Prothrombin Time (Protime)PT. 19.6 SECONDS (11.7-14.9)
[2021-01-03 08:18] LABS: AST(SGOT) 9 U/L (15-37); Alanine Aminotransfer ALT/SGPT 13 U/L (13-56); Albumin, Serum 3.2 g/dL (3.2-5.0); Alkaline Phosphatase 55 U/L (45-117); Anion Gap 7 (5-15); BUN 13 mg/dL (7-18); BUN/Creat Ratio 12.9 RATIO (10-20); Bilirubin, Direct 0.12 mg/dL (0.00-0.30); Calcium,Total 9.4 mg/dL (8.5-10.1); Chloride 99 mmol/L (98-107); Creatinine, Serum 1.01 mg/dL (0.55-1.02); EST Glomerular Filtration Rate 57 mL/min (>60); Est Glom Filt Rate - Afr Amer 69 mL/min (>60); Globulin 3.1 g/dL (2.2-4.2); Glucose 107 mg/dL (74-106); Potassium 3.7 mmol/L (3.5-5.1); Protein, Total 6.3 g/dL (6.4-8.2); Sodium Level 133 mmol/L (136-145)
[2021-01-03 09:02] LABS: Hemoglobin A1c 5.4 % (3.8-5.6)
== END ==
LOC: OLS.WCC 05:00
PROVIDERS: Visit Provider Family Medicine
DX: I48.91 Unspecified atrial fibrillation (principal); E11.9 Type 2 diabetes mellitus without complications; I10 Essential (primary) hypertension; E78.5 Hyperlipidemia, unspecified
CPT/HCPCS: 36415; 80053; 82248; 83036; 85610

== ENCOUNTER → 2021-02-02 05:00 | Outpatient (REF) | payer MEDICARE, MEDICAID, SELFPAY ==
[2021-02-02 08:16] LABS: INR Fingerstick 1.6; Prothrombin Time Fingerstick 18.8 SEC (11.9-14.4)
== END ==
LOC: OLS.WCC 05:00
PROVIDERS: Visit Provider Family Medicine
DX: I48.91 Unspecified atrial fibrillation (principal); Z79.899 Other long term (current) drug therapy; Z79.01 Long term (current) use of anticoagulants
CPT/HCPCS: 36416; 85610

== ENCOUNTER → 2021-03-03 05:00 | Outpatient (REF) | payer MEDICARE, MEDICAID, SELFPAY ==
[2021-03-03 07:35] LABS: INR Fingerstick 1.7; Prothrombin Time Fingerstick 19.6 SEC (11.9-14.4)
== END ==
LOC: OLS.WCC 05:00
PROVIDERS: Referring Provider Family Medicine; Visit Provider Family Medicine
DX: I48.91 Unspecified atrial fibrillation (principal); Z79.01 Long term (current) use of anticoagulants
CPT/HCPCS: 36416; 85610

== ENCOUNTER → 2021-04-04 04:00 | Outpatient (REF) | payer MEDICARE, MEDICAID, SELFPAY ==
[2021-04-04 08:40] LABS: INR Fingerstick 1.7; Prothrombin Time Fingerstick 19.7 SEC (11.9-14.4)
== END ==
LOC: OLS.WCC 04:00
PROVIDERS: Referring Provider Family Medicine; Visit Provider Family Medicine
DX: I48.91 Unspecified atrial fibrillation (principal); Z79.01 Long term (current) use of anticoagulants; Z79.899 Other long term (current) drug therapy
CPT/HCPCS: 36416; 85610

== ENCOUNTER → 2021-04-18 05:00 | Outpatient (REF) | payer MEDICARE, MEDICAID, SELFPAY ==
[2021-04-18 07:41] LABS: INR Fingerstick 1.4; Prothrombin Time Fingerstick 16.1 SEC (11.9-14.4)
== END ==
LOC: OLS.WCC 05:00
PROVIDERS: Visit Provider Family Medicine
DX: I48.91 Unspecified atrial fibrillation (principal); Z79.899 Other long term (current) drug therapy
CPT/HCPCS: 36416; 85610

== ENCOUNTER → 2021-04-26 04:00 | Outpatient (REF) | payer MEDICARE, MEDICAID, SELFPAY ==
[2021-04-26 09:40] LABS: Prothrombin Time Fingerstick 22.7 SEC (11.9-14.4)
== END ==
LOC: OLS.WCC 04:00
PROVIDERS: Referring Provider Family Medicine; Visit Provider Family Medicine
DX: I48.91 Unspecified atrial fibrillation (principal); Z79.899 Other long term (current) drug therapy; Z79.01 Long term (current) use of anticoagulants
CPT/HCPCS: 36416; 85610

== ENCOUNTER → 2021-05-03 05:00 | Outpatient (REF) | payer MEDICARE, MEDICAID, SELFPAY ==
[2021-05-03 07:30] LABS: INR Fingerstick 1.9; Prothrombin Time Fingerstick 21.7 SEC (11.9-14.4)
== END ==
LOC: OLS.WCC 05:00
PROVIDERS: Visit Provider Family Medicine
DX: I48.91 Unspecified atrial fibrillation (principal); Z79.01 Long term (current) use of anticoagulants
CPT/HCPCS: 36416; 85610

== ENCOUNTER → 2021-06-03 05:00 | Outpatient (REF) | payer MEDICARE, MEDICAID, SELFPAY ==
[2021-06-03 08:20] LABS: INR Fingerstick 2.8; Prothrombin Time Fingerstick 31.6 SEC (11.9-14.4)
== END ==
LOC: OLS.WCC 05:00
PROVIDERS: Visit Provider Family Medicine
DX: I48.91 Unspecified atrial fibrillation (principal); Z79.899 Other long term (current) drug therapy; Z79.01 Long term (current) use of anticoagulants
CPT/HCPCS: 36416; 85610

== ENCOUNTER → 2021-07-04 04:00 | Outpatient (REF) | payer MEDICARE, MEDICAID, SELFPAY ==
[2021-07-04 07:19] LABS: Hematocrit 38.4 % (37-47); Hemoglobin 12.8 g/dL (12.0-15.0); Mean Corp Hgb Conc 33.3 g/dL (32-36); Mean Corpuscular Hgb 28.8 pg (27.0-32.0); Mean Corpuscular Volume 86.5 fL (81-99); Mean Platelet Vol. 9.1 fl (6.2-12.0); Platelet Count 281 K/mm3 (150-450); RBC Distribution Width CV 12.9 % (11.6-14.6); RBC Distribution Width SD 40.5 fl (35.1-43.9); Red Blood Count 4.44 M/mm3 (4.2-5.4); White Blood Count 9.1 K/mm3 (4.4-11.0)
[2021-07-04 07:38] LABS: International Normalized Ratio 2.3; Prothrombin Time (Protime)PT. 24.9 SECONDS (11.7-14.9)
[2021-07-04 07:53] LABS: Hemoglobin A1c 5.8 % (3.8-5.6)
[2021-07-04 07:58] LABS: ALB/GLOB Ratio 0.8 RATIO (0.9-2.4); AST(SGOT) 13 U/L (15-37); Alanine Aminotransfer ALT/SGPT 20 U/L (13-56); Albumin, Serum 2.9 g/dL (3.2-5.0); Alkaline Phosphatase 51 U/L (45-117); Anion Gap 9 (5-15); BUN 12 mg/dL (7-18); Chloride 98 mmol/L (98-107); EST Glomerular Filtration Rate 57 mL/min (>60); Est Glom Filt Rate - Afr Amer 69 mL/min (>60); Globulin 3.5 g/dL (2.2-4.2); Glucose 112 mg/dL (74-106); Phosphorus 2.9 mg/dL (2.5-4.9); Protein, Total 6.4 g/dL (6.4-8.2); Sodium Level 133 mmol/L (136-145); T4 Free Direct 1.14 ng/dL (0.76-1.46); T4 Total, Thyroxin 9.2 ug/dL (4.8-13.9); Thyroid Stim Hormone (TSH) 1.07 uIU/mL (0.358-3.74)
== END ==
LOC: OLS.WCC 04:00
PROVIDERS: Visit Provider Family Medicine
DX: I48.91 Unspecified atrial fibrillation (principal); E03.9 Hypothyroidism, unspecified; Z79.899 Other long term (current) drug therapy
CPT/HCPCS: 36415; 80053; 83036; 84100; 84436; 84439; 84443; 85027; 85610

== ENCOUNTER → 2021-08-03 05:00 | Outpatient (REF) | payer MEDICARE, MEDICAID, SELFPAY ==
[2021-08-03 09:19] LABS: Prothrombin Time (Protime)PT. 30.3 SECONDS (11.7-14.9)
== END ==
LOC: OLS.WCC 05:00
PROVIDERS: Visit Provider Family Medicine
DX: I48.91 Unspecified atrial fibrillation (principal); Z79.899 Other long term (current) drug therapy; Z79.01 Long term (current) use of anticoagulants
CPT/HCPCS: 36415; 85610

== ENCOUNTER → 2021-09-02 05:00 | Outpatient (REF) | payer MEDICARE, MEDICAID, SELFPAY ==
[2021-09-02 12:01] LABS: Prothrombin Time Fingerstick 33.6 SEC (11.9-14.4)
== END ==
LOC: OLS.WCC 05:00
PROVIDERS: Visit Provider Family Medicine
DX: Z79.899 Other long term (current) drug therapy (principal); Z79.01 Long term (current) use of anticoagulants
CPT/HCPCS: 36416; 85610

== ENCOUNTER → 2021-10-03 05:00 | Outpatient (REF) | payer MEDICARE, MEDICAID, SELFPAY ==
[2021-10-03 06:51] LABS: International Normalized Ratio 3.3; Prothrombin Time (Protime)PT. 32.9 SECONDS (11.7-14.9)
== END ==
LOC: OLS.WCC 05:00
PROVIDERS: Visit Provider Family Medicine
DX: I48.91 Unspecified atrial fibrillation (principal); Z79.01 Long term (current) use of anticoagulants
CPT/HCPCS: 36415; 85610

== ENCOUNTER → 2021-10-17 04:00 | Outpatient (REF) | payer MEDICARE, MEDICAID, SELFPAY ==
[2021-10-17 07:45] LABS: INR Fingerstick 2.3; Prothrombin Time Fingerstick 25.8 SEC (11.9-14.4)
== END ==
LOC: OLS.WCC 04:00
PROVIDERS: Referring Provider Family Medicine; Visit Provider Family Medicine
DX: Z79.01 Long term (current) use of anticoagulants (principal)
CPT/HCPCS: 36416; 85610

== ENCOUNTER 2021-11-03 04:00 | Outpatient (REF) | payer MEDICARE, MEDICAID, SELFPAY ==
[2021-11-03 07:16] LABS: INR Fingerstick 1.8
== END 2021-11-03 23:59 | disposition home or self-care (01) ==
LOC: OLS.WCC 04:00
PROVIDERS: Referring Provider Family Medicine; Visit Provider Family Medicine
DX: I48.91 Unspecified atrial fibrillation (principal); Z79.01 Long term (current) use of anticoagulants
CPT/HCPCS: 36416; 85610

== ENCOUNTER → 2021-11-14 | Outpatient (REF) | payer MEDICARE, MEDICAID, SELFPAY | END | disposition home or self-care (01) | LOC: OLS.WCC 15:44 | PROVIDERS: Visit Provider Family Medicine | DX: Z20.822 Contact with and (suspected) exposure to COVID-19 (principal) | CPT/HCPCS: 87635; U0003; U0005 ==

== ENCOUNTER 2021-12-05 04:00 | Outpatient (REF) | payer MEDICARE, MEDICAID, SELFPAY ==
[2021-12-05 11:05] LABS: INR Fingerstick 1.6; Prothrombin Time Fingerstick 18.8 SEC (11.9-14.4)
== END 2021-12-05 23:59 | disposition home or self-care (01) ==
LOC: OLS.WCC 04:00
PROVIDERS: PCP Family Medicine; Referring Provider Family Medicine; Visit Provider Family Medicine
DX: I48.91 Unspecified atrial fibrillation (principal); Z79.01 Long term (current) use of anticoagulants
CPT/HCPCS: 36416; 85610

== ENCOUNTER 2021-12-19 06:30 | Outpatient (REF) | payer MEDICARE, MEDICAID, SELFPAY ==
[2021-12-19 08:47] LABS: International Normalized Ratio 1.7; Prothrombin Time (Protime)PT. 19.5 SECONDS (11.7-14.9)
== END 2021-12-19 23:59 | disposition home or self-care (01) ==
LOC: OLS.WCC 06:30
PROVIDERS: PCP Family Medicine; Visit Provider Family Medicine
DX: Z79.01 Long term (current) use of anticoagulants (principal)
CPT/HCPCS: 36415; 85610

== ENCOUNTER → 2022-01-02 | Outpatient (REF) | payer MEDICARE, MEDICAID, SELFPAY ==
[2022-01-02 08:45] LABS: International Normalized Ratio 2.1
[2022-01-02 09:03] LABS: AST(SGOT) 11 U/L (15-37); Alanine Aminotransfer ALT/SGPT 15 U/L (13-56); Albumin, Serum 3.2 g/dL (3.2-5.0); Alkaline Phosphatase 58 U/L (45-117); Anion Gap 4 (5-15); BUN 12 mg/dL (7-18); BUN/Creat Ratio 11.5 RATIO (10-20); Calcium,Total 9.5 mg/dL (8.5-10.1); Chloride 99 mmol/L (98-107); Creatinine, Serum 1.04 mg/dL (0.55-1.02); EST Glomerular Filtration Rate 55 mL/min (>60); Est Glom Filt Rate - Afr Amer 66 mL/min (>60); Globulin 3.2 g/dL (2.2-4.2); Glucose 124 mg/dL (74-106); Potassium 4.6 mmol/L (3.5-5.1); Protein, Total 6.4 g/dL (6.4-8.2); Sodium Level 133 mmol/L (136-145)
[2022-01-02 09:35] LABS: Hemoglobin A1c 5.8 % (3.8-5.6)
== END | disposition home or self-care (01) ==
LOC: OLS.WCC 05:00
PROVIDERS: PCP Family Medicine; Visit Provider Family Medicine
DX: I10 Essential (primary) hypertension (principal); I48.91 Unspecified atrial fibrillation; E11.9 Type 2 diabetes mellitus without complications; E78.5 Hyperlipidemia, unspecified; Z79.01 Long term (current) use of anticoagulants
CPT/HCPCS: 36415; 80053; 82248; 83036; 85610

== ENCOUNTER → 2022-02-01 | Outpatient (REF) | payer MEDICARE, MEDICAID, SELFPAY ==
[2022-02-01 08:05] LABS: INR Fingerstick 1.4; Prothrombin Time Fingerstick 17.5 SEC (11.7-14.9)
== END | disposition home or self-care (01) ==
LOC: OLS.WCC 04:00
PROVIDERS: PCP Family Medicine; Referring Provider Family Medicine; Visit Provider Family Medicine
DX: I48.91 Unspecified atrial fibrillation (principal); Z79.899 Other long term (current) drug therapy; Z79.01 Long term (current) use of anticoagulants
CPT/HCPCS: 36416; 85610

== ENCOUNTER → 2022-02-08 | Outpatient (REF) | payer MEDICARE, MEDICAID, SELFPAY ==
[2022-02-08 08:30] LABS: Prothrombin Time Fingerstick 23.9 SEC (11.7-14.9)
== END | disposition home or self-care (01) ==
LOC: OLS.WCC 05:00
PROVIDERS: PCP Family Medicine; Visit Provider Family Medicine
DX: I48.91 Unspecified atrial fibrillation (principal); Z79.899 Other long term (current) drug therapy; Z79.01 Long term (current) use of anticoagulants
CPT/HCPCS: 36416; 85610

== ENCOUNTER → 2022-02-15 | Outpatient (REF) | payer MEDICARE, MEDICAID, SELFPAY ==
[2022-02-15 06:50] LABS: Prothrombin Time Fingerstick 24.1 SEC (11.7-14.9)
== END | disposition home or self-care (01) ==
LOC: OLS.WCC 04:00
PROVIDERS: PCP Family Medicine; Referring Provider Family Medicine; Visit Provider Family Medicine
DX: I48.91 Unspecified atrial fibrillation (principal); Z79.899 Other long term (current) drug therapy; Z79.01 Long term (current) use of anticoagulants
CPT/HCPCS: 36416; 85610

== ENCOUNTER → 2022-03-03 | Outpatient (REF) | payer MEDICARE, MEDICAID, SELFPAY ==
[2022-03-03 08:35] LABS: INR Fingerstick 2.2; Prothrombin Time Fingerstick 26.3 SEC (11.7-14.9)
== END | disposition home or self-care (01) ==
LOC: OLS.WCC 05:00
PROVIDERS: PCP Family Medicine; Visit Provider Family Medicine
DX: Z79.01 Long term (current) use of anticoagulants (principal)
CPT/HCPCS: 36416; 85610

== ENCOUNTER → 2022-04-03 | Outpatient (REF) | payer MEDICARE, MEDICAID, SELFPAY ==
[2022-04-03 07:41] LABS: INR Fingerstick 2.7; Prothrombin Time Fingerstick 30.6 SEC (11.7-14.9)
== END | disposition home or self-care (01) ==
LOC: OLS.WCC 05:00
PROVIDERS: PCP Family Medicine; Visit Provider Family Medicine
DX: I48.91 Unspecified atrial fibrillation (principal); E11.9 Type 2 diabetes mellitus without complications; I10 Essential (primary) hypertension; E78.5 Hyperlipidemia, unspecified
CPT/HCPCS: 36416; 85610

== ENCOUNTER → 2022-05-03 | Outpatient (REF) | payer MEDICARE, MEDICAID, SELFPAY ==
[2022-05-03 08:00] LABS: INR Fingerstick 2.5; Prothrombin Time Fingerstick 28.9 SEC (11.7-14.9)
== END | disposition home or self-care (01) ==
LOC: OLS.WCC 04:00
PROVIDERS: PCP Family Medicine; Visit Provider Family Medicine
DX: I48.91 Unspecified atrial fibrillation (principal); Z79.01 Long term (current) use of anticoagulants; Z79.899 Other long term (current) drug therapy
CPT/HCPCS: 36416; 85610

== ENCOUNTER → 2022-06-05 | Outpatient (REF) | payer MEDICARE, MEDICAID, SELFPAY ==
[2022-06-05 09:45] LABS: INR Fingerstick 2.5; Prothrombin Time Fingerstick 28.7 SEC (11.7-14.9)
== END ==
LOC: OLS.WCC 04:00
PROVIDERS: PCP Family Medicine; Referring Provider Family Medicine; Visit Provider Family Medicine
DX: I48.91 Unspecified atrial fibrillation (principal); Z79.899 Other long term (current) drug therapy; Z79.01 Long term (current) use of anticoagulants
CPT/HCPCS: 36416; 85610

== ENCOUNTER → 2022-06-06 | Outpatient (REF) | payer MEDICARE, MEDICAID, SELFPAY ==
[2022-06-06 10:35] LABS: AST(SGOT) 9 U/L (15-37); Alanine Aminotransfer ALT/SGPT 15 U/L (13-56); Albumin, Serum 3.1 g/dL (3.2-5.0); Alkaline Phosphatase 51 U/L (45-117); Anion Gap 6 (5-15); BUN 9 mg/dL (7-18); BUN/Creat Ratio 9.1 RATIO (10-20); Bilirubin, Direct 0.14 mg/dL (0.00-0.30); Calcium,Total 9.1 mg/dL (8.5-10.1); Chloride 100 mmol/L (98-107); Creatinine, Serum 0.99 mg/dL (0.55-1.02); EST Glomerular Filtration Rate 58 mL/min (>60); Est Glom Filt Rate - Afr Amer 70 mL/min (>60); Globulin 3.2 g/dL (2.2-4.2); Glucose 130 mg/dL (74-106); Potassium 3.8 mmol/L (3.5-5.1); Protein, Total 6.3 g/dL (6.4-8.2); Sodium Level 134 mmol/L (136-145)
== END ==
LOC: OLS.WCC 04:00
PROVIDERS: PCP Family Medicine; Visit Provider Family Medicine
DX: E11.9 Type 2 diabetes mellitus without complications (principal); I10 Essential (primary) hypertension
CPT/HCPCS: 36415; 80053; 82248; 83036

== ENCOUNTER → 2022-06-27 | Outpatient (REF) | payer MEDICARE, MEDICAID, SELFPAY ==
[2022-06-27 09:54] LABS: Mucous, Urine 0 SEEN /hpf (<or=2+); Red Blood Cells-Urine 0 SEEN /hpf (0-5)
[2022-06-27 10:16] LABS: Color, Urine Yellow (Yellow); Glucose, Dipstick Normal (Normal); Ketone-Dipstick Negative (Negative); Leukocyte Esterase-Dipstick 500 /ul (Negative); Nitrite-Dipstick Positive (Negative); Occult Blood-Urine 25 /ul (Negative); Protein-Dipstick 15 mg/dl (Negative); Urine Bilirubin Dipstick Negative (Negative); Urine Clarity Sl. Cloudy (Clear); Urine Urobilinogen Normal (Normal)
[2022-06-27 10:24] LABS: Bacteria 1+ /hpf (None Seen); Squamous Epithelial Cells - UA 0-5 SEEN /hpf (5-10); White Blood Cells 10-25 SEEN /hpf (0-5)
== END ==
LOC: OLS.WCC 05:00
PROVIDERS: PCP Family Medicine; Visit Provider Family Medicine
DX: N39.0 Urinary tract infection, site not specified (principal)
CPT/HCPCS: 81001; 87077; 87086; 87088; 87186

== ENCOUNTER → 2022-07-04 | Outpatient (REF) | payer MEDICARE, MEDICAID, SELFPAY ==
[2022-07-04 09:04] LABS: Hematocrit 37.7 % (37-47); Hemoglobin 12.5 g/dL (12.0-15.0); Mean Corp Hgb Conc 33.2 g/dL (32-36); Mean Corpuscular Hgb 28.9 pg (27.0-32.0); Mean Corpuscular Volume 87.1 fL (81-99); Mean Platelet Vol. 9.2 fl (6.2-12.0); Platelet Count 319 K/mm3 (150-450); RBC Distribution Width CV 13.2 % (11.6-14.6); RBC Distribution Width SD 41.2 fl (35.1-43.9); Red Blood Count 4.33 M/mm3 (4.2-5.4); White Blood Count 9.5 K/mm3 (4.4-11.0)
[2022-07-04 09:36] LABS: ALB/GLOB Ratio 0.8 RATIO (0.9-2.4); AST(SGOT) 14 U/L (15-37); Alanine Aminotransfer ALT/SGPT 17 U/L (13-56); Albumin, Serum 2.9 g/dL (3.2-5.0); Alkaline Phosphatase 73 U/L (45-117); Anion Gap 7 (5-15); BUN 10 mg/dL (7-18); BUN/Creat Ratio 9.3 RATIO (10-20); Bilirubin, Direct 0.12 mg/dL (0.00-0.30); Calcium,Total 9.5 mg/dL (8.5-10.1); Chloride 99 mmol/L (98-107); Creatinine, Serum 1.07 mg/dL (0.55-1.02); EST Glomerular Filtration Rate 53 mL/min (>60); Est Glom Filt Rate - Afr Amer 64 mL/min (>60); Globulin 3.6 g/dL (2.2-4.2); Glucose 142 mg/dL (74-106); Potassium 4.1 mmol/L (3.5-5.1); Protein, Total 6.5 g/dL (6.4-8.2); Sodium Level 133 mmol/L (136-145); T4 Free Direct 1.18 ng/dL (0.76-1.46); Thyroid Stim Hormone (TSH) 1.02 uIU/mL (0.358-3.74)
== END ==
LOC: OLS.WCC 05:00
PROVIDERS: PCP Family Medicine; Visit Provider Family Medicine
DX: R53.83 Other fatigue (principal); F03.90 Unspecified dementia, unspecified severity, without behavioral disturbance, psychotic disturbance, mood disturbance, and anxiety; I48.91 Unspecified atrial fibrillation; I10 Essential (primary) hypertension; E78.5 Hyperlipidemia, unspecified; Z79.899 Other long term (current) drug therapy
CPT/HCPCS: 36415; 80053; 82248; 83036; 84439; 84443; 85027

== ENCOUNTER → 2022-07-06 | Outpatient (REF) | payer MEDICARE, MEDICAID, SELFPAY ==
[2022-07-06 08:26] LABS: INR Fingerstick 3.9; Prothrombin Time Fingerstick 43.9 SEC (11.7-14.9)
== END ==
LOC: OLS.WCC 05:00
PROVIDERS: PCP Family Medicine; Visit Provider Family Medicine
DX: I48.91 Unspecified atrial fibrillation (principal)
CPT/HCPCS: 36416; 85610

== ENCOUNTER → 2022-07-17 | Outpatient (REF) | payer MEDICARE, MEDICAID, SELFPAY ==
[2022-07-17 08:01] LABS: INR Fingerstick 1.8
== END ==
LOC: OLS.WCC 04:00
PROVIDERS: PCP Family Medicine; Referring Provider Family Medicine; Visit Provider Family Medicine
DX: Z79.01 Long term (current) use of anticoagulants (principal)
CPT/HCPCS: 36416; 85610

== ENCOUNTER → 2022-08-03 | Outpatient (REF) | payer MEDICARE, MEDICAID, SELFPAY ==
[2022-08-03 09:40] LABS: INR Fingerstick 2.1; Prothrombin Time Fingerstick 25.1 SEC (11.7-14.9)
== END ==
LOC: OLS.WCC 05:00
PROVIDERS: PCP Family Medicine; Visit Provider Family Medicine
DX: I48.91 Unspecified atrial fibrillation (principal); Z79.899 Other long term (current) drug therapy; Z79.01 Long term (current) use of anticoagulants
CPT/HCPCS: 36416; 85610

== ENCOUNTER → 2022-09-04 | Outpatient (REF) | payer MEDICARE, MEDICAID, SELFPAY ==
[2022-09-04 07:26] LABS: INR Fingerstick 1.8; Prothrombin Time Fingerstick 21.3 SEC (11.7-14.9)
== END ==
LOC: OLS.WCC 04:00
PROVIDERS: PCP Family Medicine; Referring Provider Family Medicine; Visit Provider Family Medicine
DX: I48.91 Unspecified atrial fibrillation (principal); Z79.01 Long term (current) use of anticoagulants; Z79.899 Other long term (current) drug therapy
CPT/HCPCS: 36416; 85610

== ENCOUNTER → 2022-10-03 | Outpatient (REF) | payer MEDICARE, MEDICAID, SELFPAY ==
[2022-10-03 09:20] LABS: INR Fingerstick 1.4; Prothrombin Time Fingerstick 17.6 SEC (11.7-14.9)
== END ==
LOC: OLS.WCC 05:00
PROVIDERS: PCP Family Medicine; Visit Provider Family Medicine
DX: I48.91 Unspecified atrial fibrillation (principal); Z79.899 Other long term (current) drug therapy; Z79.01 Long term (current) use of anticoagulants
CPT/HCPCS: 36416; 85610

== ENCOUNTER → 2022-10-12 | Outpatient (REF) | payer MEDICARE, MEDICAID, SELFPAY ==
[2022-10-12 08:25] LABS: Prothrombin Time Fingerstick 34.4 SEC (11.7-14.9)
== END ==
LOC: OLS.WCC 05:00
PROVIDERS: PCP Family Medicine; Visit Provider Family Medicine
DX: I48.91 Unspecified atrial fibrillation (principal); F03.90 Unspecified dementia, unspecified severity, without behavioral disturbance, psychotic disturbance, mood disturbance, and anxiety; E11.9 Type 2 diabetes mellitus without complications; I10 Essential (primary) hypertension; Z79.01 Long term (current) use of anticoagulants
CPT/HCPCS: 36416; 85610

== ENCOUNTER → 2022-10-24 | Outpatient (REF) | payer MEDICARE, MEDICAID, SELFPAY ==
[2022-10-24 08:05] LABS: INR Fingerstick 3.3; Prothrombin Time Fingerstick 37.2 SEC (11.7-14.9)
== END ==
LOC: OLS.WCC 05:00
PROVIDERS: PCP Family Medicine; Visit Provider Family Medicine
DX: I48.91 Unspecified atrial fibrillation (principal); Z79.899 Other long term (current) drug therapy; Z79.01 Long term (current) use of anticoagulants
CPT/HCPCS: 36416; 85610

== ENCOUNTER → 2022-11-02 | Outpatient (REF) | payer MEDICARE, MEDICAID, SELFPAY ==
[2022-11-02 08:45] LABS: INR Fingerstick 1.9; Prothrombin Time Fingerstick 22.1 SEC (11.7-14.9)
== END ==
LOC: OLS.WCC 05:00
PROVIDERS: PCP Family Medicine; Visit Provider Family Medicine
DX: I48.91 Unspecified atrial fibrillation (principal); Z79.899 Other long term (current) drug therapy; Z79.01 Long term (current) use of anticoagulants
CPT/HCPCS: 36416; 85610

== ENCOUNTER → 2022-11-16 | Outpatient (REF) | payer MEDICARE, SELFPAY ==
[2022-11-16 08:35] LABS: Prothrombin Time Fingerstick 34.5 SEC (11.7-14.9)
== END ==
LOC: OLS.WCC 05:00
PROVIDERS: PCP Family Medicine; Visit Provider Family Medicine
DX: Z79.01 Long term (current) use of anticoagulants (principal)
CPT/HCPCS: 36416; 85610

== ENCOUNTER → 2022-11-29 | Outpatient (REF) | payer MEDICARE, MEDICAID, SELFPAY ==
[2022-11-29 08:10] LABS: INR Fingerstick 3.5; Prothrombin Time Fingerstick 39.3 SEC (11.7-14.9)
== END ==
LOC: OLS.WCC 05:00
PROVIDERS: PCP Family Medicine; Visit Provider Family Medicine
DX: I48.91 Unspecified atrial fibrillation (principal); Z79.899 Other long term (current) drug therapy; Z79.01 Long term (current) use of anticoagulants
CPT/HCPCS: 36416; 85610

== ENCOUNTER → 2022-12-04 | Outpatient (REF) | payer MEDICARE, MEDICAID, SELFPAY ==
[2022-12-04 09:10] LABS: ALB/GLOB Ratio 0.8 RATIO (0.9-2.4); AST(SGOT) 14 U/L (15-37); Alanine Aminotransfer ALT/SGPT 15 U/L (13-56); Albumin, Serum 2.9 g/dL (3.2-5.0); Alkaline Phosphatase 52 U/L (45-117); Anion Gap 8 (5-15); BUN 11 mg/dL (7-18); BUN/Creat Ratio 9.6 RATIO (10-20); Bilirubin, Direct 0.11 mg/dL (0.00-0.30); Calcium,Total 9.2 mg/dL (8.5-10.1); Chloride 100 mmol/L (98-107); Creatinine, Serum 1.14 mg/dL (0.55-1.02); EST Glomerular Filtration Rate 49 mL/min (>60); Est Glom Filt Rate - Afr Amer 59 mL/min (>60); Globulin 3.5 g/dL (2.2-4.2); Glucose 109 mg/dL (74-106); Protein, Total 6.4 g/dL (6.4-8.2); Sodium Level 134 mmol/L (136-145)
[2022-12-04 09:12] LABS: Hemoglobin A1c 5.2 % (3.8-5.6)
== END ==
LOC: OLS.WCC 04:00
PROVIDERS: PCP Family Medicine; Referring Provider Family Medicine; Visit Provider Family Medicine
DX: I48.91 Unspecified atrial fibrillation (principal); F03.90 Unspecified dementia, unspecified severity, without behavioral disturbance, psychotic disturbance, mood disturbance, and anxiety; E11.9 Type 2 diabetes mellitus without complications; I10 Essential (primary) hypertension; E78.5 Hyperlipidemia, unspecified; Z79.899 Other long term (current) drug therapy; Z79.01 Long term (current) use of anticoagulants
CPT/HCPCS: 36415; 80053; 82248; 83036

== ENCOUNTER → 2022-12-14 | Outpatient (REF) | payer MEDICARE, MEDICAID, SELFPAY ==
[2022-12-14 08:40] LABS: INR Fingerstick 2.1; Prothrombin Time Fingerstick 24.4 SEC (11.7-14.9)
== END ==
LOC: OLS.WCC 05:00
PROVIDERS: PCP Family Medicine; Visit Provider Family Medicine
DX: I48.91 Unspecified atrial fibrillation (principal); F03.90 Unspecified dementia, unspecified severity, without behavioral disturbance, psychotic disturbance, mood disturbance, and anxiety; E11.9 Type 2 diabetes mellitus without complications; I10 Essential (primary) hypertension; E78.5 Hyperlipidemia, unspecified; E03.9 Hypothyroidism, unspecified; Z79.899 Other long term (current) drug therapy; Z79.01 Long term (current) use of anticoagulants
CPT/HCPCS: 36416; 85610

== ENCOUNTER → 2022-12-29 | Outpatient (CLI) | payer MEDICARE, MEDICAID, SELFPAY ==
[2022-12-29 22:45] LABS: Color, Urine Yellow (Yellow); Glucose, Dipstick Normal (Normal); Ketone-Dipstick Negative (Negative); Leukocyte Esterase-Dipstick 500 /ul (Negative); Nitrite-Dipstick Positive (Negative); Occult Blood-Urine Negative /ul (Negative); Protein-Dipstick Negative (Negative); Urine Bilirubin Dipstick Negative (Negative); Urine Clarity Clear (Clear); Urine Urobilinogen Normal (Normal)
== END | disposition home or self-care (01) ==
LOC: LABSPEC 12-30 10:56 → OLS.WCC 12-30 12:48
PROVIDERS: Visit Provider Family Medicine
DX: N39.0 Urinary tract infection, site not specified (principal)
CPT/HCPCS: 81002; 87077; 87086; 87088; 87186

== ENCOUNTER → 2023-01-01 | Outpatient (REF) | payer MEDICARE, MEDICAID, SELFPAY ==
[2023-01-01 08:50] LABS: INR Fingerstick 2.6; Prothrombin Time Fingerstick 30.3 SEC (11.7-14.9)
== END ==
LOC: OLS.WCC 05:00
PROVIDERS: Visit Provider Family Medicine
DX: I48.91 Unspecified atrial fibrillation (principal); Z79.899 Other long term (current) drug therapy; Z79.01 Long term (current) use of anticoagulants
CPT/HCPCS: 36416; 85610

== ENCOUNTER → 2023-02-01 | Outpatient (REF) | payer MEDICARE, MEDICAID, SELFPAY ==
[2023-02-01 07:45] LABS: INR Fingerstick 5.5; Prothrombin Time Fingerstick 56.4 SEC (11.7-14.9)
[2023-02-01 08:44] LABS: International Normalized Ratio 5.4; Prothrombin Time (Protime)PT. 48.9 SECONDS (11.7-14.9)
== END ==
LOC: OLS.WCC 05:00
PROVIDERS: Visit Provider Family Medicine
DX: I48.91 Unspecified atrial fibrillation (principal); Z79.899 Other long term (current) drug therapy; Z79.01 Long term (current) use of anticoagulants
CPT/HCPCS: 36416; 85610

== ENCOUNTER → 2023-02-05 | Outpatient (REF) | payer MEDICARE, MEDICAID, SELFPAY ==
[2023-02-05 08:05] LABS: INR Fingerstick 1.2; Prothrombin Time Fingerstick 13.2 SEC (11.7-14.9)
== END ==
LOC: OLS.WCC 04:00
PROVIDERS: Referring Provider Family Medicine; Visit Provider Family Medicine
DX: I48.91 Unspecified atrial fibrillation (principal); E11.9 Type 2 diabetes mellitus without complications; I10 Essential (primary) hypertension; Z79.01 Long term (current) use of anticoagulants
CPT/HCPCS: 36416; 85610

== ENCOUNTER → 2023-02-12 | Outpatient (REF) | payer MEDICARE, MEDICAID, SELFPAY ==
[2023-02-12 08:11] LABS: INR Fingerstick 1.6; Prothrombin Time Fingerstick 17.4 SEC (11.7-14.9)
== END ==
LOC: OLS.WCC 05:00
PROVIDERS: Visit Provider Family Medicine
DX: I48.91 Unspecified atrial fibrillation (principal); Z79.01 Long term (current) use of anticoagulants
CPT/HCPCS: 36416; 85610

== ENCOUNTER → 2023-02-26 | Outpatient (REF) | payer MEDICARE, MEDICAID, SELFPAY ==
[2023-02-26 08:30] LABS: Prothrombin Time Fingerstick 21.7 SEC (11.7-14.9)
== END ==
LOC: OLS.WCC 05:00
PROVIDERS: Visit Provider Family Medicine
DX: I48.91 Unspecified atrial fibrillation (principal); Z79.899 Other long term (current) drug therapy; Z79.01 Long term (current) use of anticoagulants
CPT/HCPCS: 36416; 85610

== ENCOUNTER → 2023-03-12 | Outpatient (REF) | payer MEDICARE, MEDICAID, SELFPAY ==
[2023-03-12 08:15] LABS: INR Fingerstick 1.6; Prothrombin Time Fingerstick 18.3 SEC (11.7-14.9)
== END ==
LOC: OLS.WCC 04:00
PROVIDERS: Referring Provider Family Medicine; Visit Provider Family Medicine
DX: I48.91 Unspecified atrial fibrillation (principal); Z79.899 Other long term (current) drug therapy; Z79.01 Long term (current) use of anticoagulants
CPT/HCPCS: 36416; 85610

== ENCOUNTER 2023-03-29 16:37 | Inpatient (IN) | payer MEDICARE, MEDICAID, SELFPAY ==
[2023-03-29 16:39] VITALS: BP 154/67; PULSE 86; RESP 16; TEMP 36.3; O2SAT 100; BMI 38.1
--- NOTE | 2023-03-29 16:57 | CT_ITS ---
STUDY: CT BRAIN WITHOUT CONTRAST REASON FOR EXAM: Female, 77 years old. head trauma Individualized dose optimization techniques were used for this CT. TECHNIQUE: Transaxial CT imaging of the brain was performed without administration of intravenous contrast material. COMPARISON: None FINDINGS: There are calcifications around the carotid artery. These are noted in the cavernous carotid arteries. Normal calvarium. Normal soft tissues. There is mild cerebral atrophy with widening of the extra-axial spaces and ventricular dilatation. There are areas of decreased attenuation within the white matter tracts of the supratentorial brain, consistent with microvascular disease changes. Normal basal ganglia and thalami. Normal brainstem. There is mild cerebellar atrophy. There is no intracranial hemorrhage. There are no findings of an acute ischemic infarction. There is sinus disease. ASPECTS Score for Acute Strokes: 07/31 CT/Brain/Head without Contrast IMPRESSION: There are no acute findings. Chronic involutional changes of the brain. Electronically Signed: Tulio Kasper MD at 17:31 EDT ,
--- NOTE | 2023-03-29 16:57 | CT_ITS ---
EXAM: CT SPINE - CERVICAL WITHOUT IV REASON FOR EXAM: Female, 77 years old. NECK PAIN fall HISTORY: NECK PAIN fall Individualized dose optimization techniques were used for this CT. TECHNIQUE: Multiplanar images were obtained of the cervical spine. IV contrast was not utilized. COMPARISON: None. FINDINGS: The vertebral bodies do maintain their height. The odontoid process is intact. No pre-vertebral soft tissue swelling is seen. The intravertebral disc height is lost. There are scattered lymph nodes in the neck. There are degenerative changes of the osseous structures. There is bilateral facet arthropathy. There are scattered levels of foraminal stenosis. There are vascular calcifications. CT/Spine Cervical without Contras IMPRESSION: Degenerative changes of the cervical spine. There are no acute findings. Electronically Signed: Tulio Kasper MD at 17:58 EDT ,
--- NOTE | 2023-03-29 17:01 | ED.VIS.FALL ---
HPI HPI - Fall History of Present Illness Chief Complaint: Fall Detail of Chief Complaint: Fell out of her wheelchair. Informant: patient Occured/Mechanism Occurred: Today and Hours Mechanism/Context: Yes same level fall Usually ambulates: Non-Ambulatory Pain/Injury Pain Location: head and lower extremity Quality of Pain: Dull and Aching Current Severity: Moderate Maximum Severity: Moderate Associated Symptoms Associated Symptoms: Negative for Parasthesias, Weakness, Loss of function, Inability to ambulate, Loss of consciousness or Amnesia Narrative Narrative: 77-year-old female who is known ambulatory due to weakness and is wheelchair-bound. She is on Coumadin for known A-fib and is also diabetic. Today at the [facility] facility, [facility], she was leaning forward to olive picker some and fell forward out of her wheelchair striking her head. Complaining primarily of head pain. Also right thigh and knee pain. No LOC. Currently no headache. Denies recent illness or recent hospitalization. Prior similar symptoms: No Recent Illness/Hospitalization: No PFSH PFSH Medical History Dementia Depression Diabetes mellitus GERD (gastroesophageal reflux disease) HTN (hypertension) Irritable bowel syndrome (IBS) Left cataract Osteoarthritis PVD (peripheral vascular disease) TIA (transient ischemic attack) Tourette syndrome Home Medications vit C 250 mg-vit E 90 mg-zinc 40 mg-copper 1 [id number] capsule (PreserVision AREDS-2) 1 ea PO BID 05/23/14 [History Last Taken 11/20/14] omeprazole 20 mg capsule,delayed release 20 mg PO DAILY 06/15/14 [History Last Taken 03/29/23] furosemide 40 mg tablet 40 mg PO DAILY 11/20/14 [History Last Taken 03/29/23] warfarin 3 mg tablet (Jantoven) 4 mg PO MOTUWETHFRSA 11/20/14 [History Last Taken 03/28/23] acetaminophen 500 mg tablet 1,000 mg PO TID 05/14/17 [History Last Taken 03/29/23] losartan 100 mg tablet 100 mg PO DAILY 05/14/17 [History Last Taken 03/29/23] diltiazem HCl 180 mg capsule,extended release 24 hr 240 mg PO DAILY 03/29/23 [History Last Taken 03/29/23] duloxetine 30 mg capsule,delayed release 30 mg PO DAILY DEPRESSION 03/29/23 [History Last Taken 03/29/23] omega-3 fatty acids 1,000 mg capsule 1,000 mg PO DAILY SUPPLEMENT 03/29/23 [History Last Taken 03/29/23] peg [id number] 1 %-0.2 %-0.2 % eye drops (Artificial Tears ([id number])) 1 drp EACH EYE 4XD DRY EYE 03/29/23 [History Last Taken 03/29/23] risperidone 0.5 mg tablet 2 mg PO BID 03/29/23 [History Last Taken 03/29/23] vit A 300 mcg-C 200 mg-E 27 mg-lutein 2 mg and minerals tablet (Ocuvite with Lutein) 1 tab PO DAILY SUPPLEMENT 03/29/23 [History Last Taken 03/29/23] Allergy/AdvReac Type Severity Reaction Status Date / Time bismuth subsalicylate Allergy NEEDS Verified 03/29/23 16:38 [From Pepto-Bismol] FOLLOW-UP Penicillins Allergy Swelling Verified 05/23/14 20:30 shrimp Allergy Angioedema Verified 08/23/22 15:27 sulfamethoxazole Allergy NEEDS Verified 03/29/23 16:38 [From Bactrim] FOLLOW-UP trimethoprim [From Bactrim] Allergy NEEDS Verified 03/29/23 16:38 FOLLOW-UP Social History Smoking Status: Never smoker ROS ROS ED ROS Narrative Denies recent illness. Review of Systems ROS Unobtainable: Denies due to encephalopathy Constitutional Constitutional ED: Denies chills or fever(s) Eyes Eyes: Denies blurry vision Cardiovascular Cardiovascular: Denies chest pain Respiratory/Chest Respiratory/Chest: Denies cough or dyspnea Gastrointestinal Gastrointestinal: Denies abdominal pain Genitourinary Genitourinary ED: Denies dysuria or hematuria Musculoskeletal Musculoskeletal: Denies arthralgias Integumentary Denies abscess Neurologic Neurologic: Denies headache(s) Psychiatric Psychiatric: Denies anxiety Endocrine Endocrinology: Denies polydipsia Hematologic/Lymphatic Hematologic/Lymphatic: Denies easy bleeding Allergic/Immunologic Allergic/Immunologic ED: Denies mouth swelling EXAM Physical Exam Narrative Exam Narrative: Says [id number] female lying in bed. On a backboard. Vital signs are stable afebrile. Does not look septic or toxic. Female present in the room that I believe his family. H EENT exam pupils round react to light. Extra motions are intact. No facial tenderness or trauma. No significant hematoma or laceration to her face or scalp. No significant tenderness. C-spine nontender. Trachea midline. They were unable to place the c-collar on her due to her body habitus. Lungs clear to auscultation bilaterally. Heart regular rhythm rate about 85 no murmur. Chest wall no crepitance or subcu air. Minimal tenderness on the sternum. Abdomen soft nontender normal bowel sounds no peritoneal signs. Moves all 4 extremities. Upper extremities are nontender. She is able to AB and AB duct her shoulders, flex and extend her elbows and hands. Normal insurance follow up specialist strength. Complaining of pain in her right thigh. There is no internal rotation or shortening. She is able to flex extend both hips, knees and ankles. No gross bony deformity. Neurologically she is awake and alert. Answering questions and following commands. Const Vital Signs: 03/29/23 16:39 03/29/23 17:00 03/29/23 18:37 Temperature 97.4 F L Temperature Source Temporal Pulse Rate 86 69 Respiratory Rate 16 16 Respiratory Effort Normal Non-Labored Blood Pressure 154/67 H 159/94 H Blood Pressure Mean 96 115 Pulse Ox 100 99 Oxygen Delivery Method Room Air Room Air Positive well nourished, well developed and obese; Negative for cachectic, contractures or unkempt General Appearance ED: well developed and NAD; Negative for unkempt, cachectic or contractures Nutritional Appearance: obese; Negative for cachectic HEENT Reports normocephalic trauma; Negative for atraumatic, contusion, hematoma or tenderness Eyes PERRL and EOMs intact bilaterally General Eye ED: Negative for pale conjunctiva Neck full ROM, no lymphadenopathy and supple General: Negative for tenderness Chest Wall inspection of chest normal; Negative for palpation of chest normal Chest Narrative: Mild tenderness of the sternum. Resp normal respiratory effort, no retractions and clear to auscultation bilaterally Effort and Inspection: Negative for pain with movement Auscultation: Negative for rales, rhonchi or wheezes Cardio regular rate, regular rhythm, S1 normal heart sound, S2 normal heart sound and no murmurs Rate: Negative for bradycardia or tachycardic Rhythm: Negative for abnormal rhythm Bruits: Negative for other GI non-tender, non-distended and no masses Inspection: Negative for abdominal distention Auscultation: normoactive bowel sounds Palpation: soft Back/Spine no CVA tenderness General Back: Negative for CVA tenderness Cervical Spine: Negative for cervical spine tenderness Neuro oriented x3, CN's II-XII intact bilaterally, moves all extremities and no focal motor deficits [place] Coma Scale: document GCS findings Spontaneous Obeys Commands Oriented 15 Sensorium / Orientation: alert, oriented to person, oriented to place and oriented to time; Negative for orientation impaired, confused, lethargic or stuporous Motor Exam: strength 5/5 throughout Psych Appearance: Negative for unkempt Attitude: No agitated Mood & Affect: Negative for depressed, anxious or tearful Skin General Skin Exam: Negative for other Lesions: no lesions Rashes: no rashes Trauma: Negative for abrasion or laceration MDM MDM MDM Narrative Medical decision making narrative: 77-year-old female that fell out of her wheelchair striking her head. Also complains of pain to her right thigh and gluteal area. She states due to her being on Coumadin I will do a CT of her head and neck. Fluids plain chest x-ray to rule out any trauma to the bones of her chest I think is just a contusion. And x-rays of her right pelvis hip thigh and knee. Tylenol for pain. CT of the head and C-spine were unremarkable. Chronic changes. She does have a right femoral neck fracture. Orthopedics were consulted Dr. Sena is in the ER and evaluate the patient. I will speak to the hospitalist about admission. Screening labs will be obtained due to the admission. Patient treated with morphine for pain Zofran for nausea. She has been evaluated by both the orthopedic physician and the hospitalist. History & Record Review Discussion w/independent historian: Patient and Family Lab Data Attestation: I reviewed the patient's lab results. Lab results narrative: CBC shows a white count 14.6. H&H of 13 and 40. Platelets 397. Electrolytes show a potassium of 2.9. Gap of 10. Normal BUN and creatinine. Glucose 142. CT of her head neck was unremarkable. Right hip her x-ray revealed a right femoral neck fracture. Labs: Laboratory Results - last 24 hr 06/08/23 06/08/23 19:00 19:00 WBC 14.6 H RBC 4.56 Hgb 13.1 Hct 40.1 MCV 87.9 MCH 28.7 MCHC 32.7 RDW Std Deviation 47.4 H RDW Coeff of Meryl 14.7 H Plt Count 397 MPV 8.6 Immature Gran % (Auto) 1.400 H Neut % (Auto) 78.1 H Lymph % (Auto) 11.4 L Churchill % (Auto) 6.6 Eos % (Auto) 2.2 Baso % (Auto) 0.3 Absolute Neuts (auto) 11.4 H Absolute Lymphs (auto) 1.66 Nucleated RBC % 0 Sodium 137 Potassium 2.9 L Chloride 100 Carbon Dioxide 27.0 Anion Gap 10 BUN 12 Creatinine 0.91 Estim Creat Clear Calc 48.47 Est GFR (MDRD) Af Amer 77 Est GFR (MDRD) Non-Af 64 BUN/Creatinine Ratio 13.2 Glucose 142 H Calcium 9.3 Radiography Chest X-Ray - ED: 1 View, Read by ED Physician, Read by Radiologist, Heart, Lungs, Mediastinum, Bony Structures, No Acute Disease and Chronic Changes Diagnostic Testing: Clinical Impression(s) from Imaging Studies Brain CT 03/29/23 16:57 IMPRESSION: There are no acute findings. Chronic involutional changes of the brain. Electronically Signed: Tulio Kasper MD at 17:31 EDT , Cervical Spine CT 03/29/23 16:57 IMPRESSION: Degenerative changes of the cervical spine. There are no acute findings. Electronically Signed: Tulio Kasper MD at 17:58 EDT , Chest X-Ray 03/29/23 17:25 IMPRESSION: There are no acute findings. Electronically Signed: Tulio Kasper MD at 18:03 EDT , Femur X-Ray 03/29/23 17:25 IMPRESSION: 1. Acute fracture of right femoral neck. 2. Degenerative arthrosis. There is a moderate volume joint effusion. Electronically Signed: Tulio Kasper MD at 18:13 EDT , Knee X-Ray 03/29/23 17:25 IMPRESSION: Degenerative arthrosis. Effusion, as described above. Electronically Signed: Tulio Kasper MD at 18:15 EDT , Pelvis X-Ray 03/29/23 17:25 IMPRESSION: Acute fracture of right femoral neck. Electronically Signed: Tulio Kasper MD at 18:09 EDT , Chest x-ray, portable, single view, interpreted by myself and the radiologist shows no acute abnormality. Normal cardiac silhouette mediastinum. Pelvis x-ray interpreted by myself and the radiologist shows a right femoral neck fracture. Right femur x-ray shows a right femoral neck fracture interpreted both by myself and the radiologist. Right knee x-ray interpreted by myself and the radiologist shows chronic degenerative changes. Effusion. Decreased joint space. But no acute fracture. No dislocation. Rhythm Strip Rhythm Strip: A-fib Rate: 89 Ectopy: PVC(s) EKG Initial EKG: Attestation: I personally reviewed and interpreted this EKG as follows: Interpretation: No Acute Injury Pattern and Atrial Fibrillation Comments: Atrial fibrillation rate of 89 with PVCs. No acute signs of IN or ischemia. Discharge Plan Dx/Rx/DC Orders Clinical Impression: Fall, Closed fracture of neck of right femur, CHI (closed head injury), Chronic anticoagulation, History of diabetes mellitus, History of chronic atrial fibrillation Disposition Disposition: Acute Care Hospital [facility]
--- NOTE | 2023-03-29 17:25 | RAD_ITS ---
STUDY: XR Pelvis 1 or 2 Views 03/29/2023 5:10 PM REASON FOR EXAM: Female, 77 years old. fall Pain TECHNIQUE: XR Pelvis 1 or 2 Views COMPARISON: None FINDINGS: There is a non-specific bowel gas pattern. Normal visualized soft tissue structures.There are degenerative changes of the lumbar spine. Normal bilateral iliac wings, sacroiliac joints and visualized sacrum. Normal visualized bilateral superior and inferior pubic rami. Normal pubic symphysis. Normal ischial tuberosities. Normal visualized right femoral head. Normal right acetabulum. Normal right hip joint. Acute fracture of right femoral neck. Normal visualized left femoral head. Normal left acetabulum. Normal left hip joint. RAD/Pelvis 1 or 2 Views IMPRESSION: Acute fracture of right femoral neck. Electronically Signed: Tulio Kasper MD at 18:09 EDT ,
--- NOTE | 2023-03-29 17:25 | RAD_ITS ---
STUDY: XR Knee 3 Views 03/29/2023 6:12 PM REASON FOR EXAM: Female, 77 years old. fall TECHNIQUE: XR Knee 3 Views RIGHT COMPARISON: 10.10.13 FINDINGS: Normal visualized distal femur. Normal visualized proximal tibia and fibula. Normal proximal tibiofibular articulation. There is severe degenerative arthrosis of the medial femorotibial compartment with severe joint space narrowing. There is moderate degenerative arthrosis of the lateral femorotibial compartment with moderate joint space narrowing. There is severe degenerative arthrosis of the patellofemoral articulation. There is a moderate volume joint effusion. The soft tissue structures are unremarkable. RAD/Knee 3 Views IMPRESSION: Degenerative arthrosis. Effusion, as described above. Electronically Signed: Tulio Kasper MD at 18:15 EDT ,
--- NOTE | 2023-03-29 17:25 | RAD_ITS ---
EXAM: XR RIGHT FEMUR, 2 VIEWS CLINICAL INDICATION: fall TECHNIQUE: Frontal and lateral views of the right femur. COMPARISON: No relevant prior studies available. FINDINGS: BONES/JOINTS: Acute fracture of right femoral neck. There is severe degenerative arthrosis of the medial femorotibial compartment with severe joint space narrowing. There is moderate degenerative arthrosis of the lateral femorotibial compartment with moderate joint space narrowing. There is severe degenerative arthrosis of the patellofemoral articulation. There is a moderate volume joint effusion. No sclerotic or destructive changes observed. Normal visualized distal femur. Normal visualized proximal tibia and fibula. Normal proximal tibiofibular articulation. SOFT TISSUES: Unremarkable. No soft tissue swelling or gas. No radiopaque foreign body. RAD/Femur Min 2 Views IMPRESSION: 1. Acute fracture of right femoral neck. 2. Degenerative arthrosis. There is a moderate volume joint effusion. Electronically Signed: Tulio Kasper MD at 18:13 EDT ,
--- NOTE | 2023-03-29 17:25 | RAD_ITS ---
STUDY: XR Chest 1 View 03/29/2023 5:10 PM REASON FOR EXAM: Female, 77 years old. PAIN fall Comparison: 7. TECHNIQUE: XR Chest 1 View FINDINGS: There is no demonstrated pleural abnormality. Enlarged heart size. Normal mediastinum. Normal oscar. Prominent appearing increased interstitial lung markings. Normal visualized pulmonary arteries. There is atherosclerotic calcification of the aortic arch with tortuosity. There are diffuse degenerative changes of the visualized thoracic spine. There is degenerative osteoarthritis of the bilateral shoulders. There is no demonstrated abnormality of the visualized soft tissue structures of the upper abdomen. RAD/Chest 1 View (Portable) IMPRESSION: There are no acute findings. Electronically Signed: Tulio Kasper MD at 18:03 EDT ,
--- NOTE | 2023-03-29 18:36 | EKG12_ITS ---
Test Reason : Blood Pressure : / mmHG Vent. Rate : 089 BPM Atrial Rate : 000 BPM P-R Int : 000 ms QRS Dur : 096 ms QT Int : 368 ms P-R-T Axes : 000 -03 003 degrees QTc Int : 447 ms Atrial fibrillation with premature ventricular or aberrantly conducted complexes Nonspecific ST and T wave abnormality Abnormal ECG Confirmed by ROGER MANZO, QUAN ([id number]), associate entertainment editor TISHA LORENZ ([id number]) on 04/02/2023 1:31:19 PM Referred By: Confirmed By:QUAN DURAN MD
[2023-03-29 18:37] VITALS: BP 159/94; PULSE 69; RESP 16; O2SAT 99
--- NOTE | 2023-03-29 18:50 | CON.PCM.OR_ITS ---
HPI Consult Data Date of Consult: 03/29/23 HPI Narrative HPI Narrative: CAROL WISE, is a 77 F who presents right hip pain after a fall. Patient normally is in a wheelchair in a detention. They are here with her daughter Loren. Patient had a fall out of the wheelchair was unable to ambulate. Consulted by the ED doc. [facility] Medical History Dementia Depression Diabetes mellitus GERD (gastroesophageal reflux disease) HTN (hypertension) Irritable bowel syndrome (IBS) Left cataract Osteoarthritis PVD (peripheral vascular disease) TIA (transient ischemic attack) Tourette syndrome Home Medications potassium chloride 20 mEq tablet,extended release(part/cryst) (Klor-Con M) 20 meq PO DAILY 05/23/14 [History Last Taken 11/20/14] vit C 250 mg-vit E 90 mg-zinc 40 mg-copper 1 [id number] capsule (PreserVision AREDS-2) 1 ea PO BID 05/23/14 [History Last Taken 11/20/14] fluoxetine 40 mg capsule 40 mg PO DAILY 06/15/14 [History Last Taken 11/20/14] omeprazole 20 mg capsule,delayed release 20 mg PO DAILY 06/15/14 [History Last Taken 11/20/14] clonidine HCl 0.1 mg tablet 0.1 mg PO QHS ##1 06/17/14 [Rx Last Taken 11/20/14] diltiazem HCl 180 mg capsule,extended release 24 hr 180 mg PO DAILY ##1 06/17/14 [Rx Last Taken 11/20/14] risperidone 0.5 mg tablet 0.5 mg PO BID ##1 06/17/14 [Rx Last Taken 11/20/14] temazepam 15 mg capsule 30 mg PO DAILY PRN Sleep ##30 06/17/14 [Rx Last Taken Unknown] furosemide 40 mg tablet 40 mg PO DAILY 11/20/14 [History Last Taken 11/20/14] warfarin 3 mg tablet (Jantoven) 4 mg PO MOTUWETHFRSA 11/20/14 [History Last Taken 11/19/14] acetaminophen 500 mg tablet 1,000 mg PO TID 05/14/17 [History Last Taken Unknown] ciprofloxacin HCl 500 mg tablet 500 mg PO BID ##20 05/14/17 [Rx Last Taken Unknown] loperamide 2 mg capsule 4 mg PO BID 05/14/17 [History Last Taken Unknown] losartan 100 mg tablet 100 mg PO DAILY 05/14/17 [History Last Taken Unknown] metoprolol tartrate 25 mg tablet 75 mg PO DAILY 05/14/17 [History Last Taken Unknown] metronidazole 500 mg tablet 500 mg PO Q8H #30 tabs 05/14/17 [Rx Last Taken Unknown] peg 400-propylene glycol (PF) 0.4 %-0.3 % eye drops in a dropperette (Systane (PF)) 1 ea 4X/DAY 05/14/17 [History Last Taken Unknown] tramadol 50 mg tablet 50 mg PO Q6H PRN PRN Pain 05/14/17 [History Last Taken Unknown] warfarin 5 mg tablet (Coumadin) 5 mg PO SOLO 05/14/17 [History Last Taken Unknown] Allergy/AdvReac Type Severity Reaction Status Date / Time bismuth subsalicylate Allergy NEEDS Verified 03/29/23 16:38 [From Pepto-Bismol] FOLLOW-UP Penicillins Allergy Swelling Verified 05/23/14 20:30 shrimp Allergy Angioedema Verified 08/23/22 15:27 sulfamethoxazole Allergy NEEDS Verified 03/29/23 16:38 [From Bactrim] FOLLOW-UP trimethoprim [From Bactrim] Allergy NEEDS Verified 03/29/23 16:38 FOLLOW-UP Social History Smoking Status: Never smoker Vital Signs Vital Signs Vital Signs: 03/29/23 16:39 Temperature 97.4 F L Temperature Source Temporal Pulse Rate 86 Respiratory Rate 16 Blood Pressure 154/67 H Blood Pressure Mean 96 Pulse Ox 100 Oxygen Delivery Method Room Air Weight Weight: 236 lb 1.841 oz Body Mass Index (BMI) 38.1 Physical Exam Const alert Resp normal respiratory effort Extremity normal capillary refill and no calf tenderness Extremity Narrative: Right lower extremity appears normal. Closed injury. Pain of the right hip. Mild chronic lower extremity edema has Lambert wraps in place but otherwise can wiggle her toes dorsiflex the foot and ankle. Normal sensation throughout the foot in the superficial and deep peroneal nerves as well as saphenous sural and tibial. Good dorsalis pedis pulse. Foot is warm and well-perfused. No pain at the right knee on palpation. Radiology Impression Brain CT 03/29/23 16:57 IMPRESSION: There are no acute findings. Chronic involutional changes of the brain. Electronically Signed: Tulio Kasper MD at 17:31 EDT , Cervical Spine CT 03/29/23 16:57 IMPRESSION: Degenerative changes of the cervical spine. There are no acute findings. Electronically Signed: Tulio Kasper MD at 17:58 EDT , Chest X-Ray 03/29/23 17:25 IMPRESSION: There are no acute findings. Electronically Signed: Tulio Kasper MD at 18:03 EDT , Femur X-Ray 03/29/23 17:25 IMPRESSION: 1. Acute fracture of right femoral neck. 2. Degenerative arthrosis. There is a moderate volume joint effusion. Electronically Signed: Tulio Kasper MD at 18:13 EDT , Knee X-Ray 03/29/23 17:25 IMPRESSION: Degenerative arthrosis. Effusion, as described above. Electronically Signed: Tulio Kasper MD at 18:15 EDT , Pelvis X-Ray 03/29/23 17:25 IMPRESSION: Acute fracture of right femoral neck. Electronically Signed: Tulio Kasper MD at 18:09 EDT , I agree with radiologist assessment there is a displaced right femoral neck fracture. Assessment & Plan Assessment/Plan (1) Closed fracture of neck of right femur: PLAN: 77-year-old female nonambulatory with a right femoral neck fracture. The patient still does transfer in and out of the wheelchair apparently. I discussed with the patient as well as the daughter Loren pros and cons risks and benefits of nonoperative versus operative management. Generally hip fractures are treated operatively in all but the most medically unwell patients. This would be indicated for hemiarthroplasty. Other options would be total hip arthroplasty. Would not be a good candidate for open reduction internal fixa tion given the displacement, and total hip would have very high risk of dislocation in this patient. Generally my preference is for cemented hemiarthroplasty. This is able to be done through many approaches anteriorly laterally or posteriorly. In this patient my preference would be to perform this through a lateral approach. I booked and consented the patient for right hip hemiarthroplasty signed the consent and marked the right lower extremity as well as talking to the engine house helper and anesthesia Dr. Butts. I spoke with the ED doc as well and asked him to consult the hospitalist for admission and clearance for surgery. The patient is still pending blood work as they are on warfarin a blood thinner - once the level know will likely need vitamin K to bring it down to normal rang e for surgery. For now the patient can eat and drink and ideally we will perform the surgery tomorrow so n.p.o. at midnight. Pros and cons risks and benefits were discussed with the patient including but not limited to infection, pain, stiffness, bleeding, damage to surrounding structures, neurovascular injury, recurrence or retear, failure or wear of hardware or fixation, instability, fracture, deep vein thrombosis and pulmonary embolism, anesthetic risks, , patient dissatisfaction, need for further surgery and other risks. Patient understood and wished to proceed with surgery, and signed the informed consent documentation.
[2023-03-29] MEDS: Morphine 4 MG/ML Syringe IV ×2 (19:04→21:43)
[2023-03-29] MEDS: Ondansetron 4 MG/2 ML Vial IV (19:05)
[2023-03-29 19:17] LABS: Absolute Lymphocyte Count 1.66 X10^3/uL (0.83-4.51); Absolute Neutrophil Count 11.4 X10^3/uL (2.0-7.7); Basophil# 0.05 X10^3/uL; Basophil% 0.3 % (0-1); Eosinophil# 0.32 X10^3/uL; Eosinophils% 2.2 % (0-5); Hematocrit 40.1 % (37-47); Hemoglobin 13.1 g/dL (12.0-15.0); Lymphocyte # 1.66 X10^3/ul (0.83-4.51); Lymphocyte % 11.4 % (19-41); Mean Corp Hgb Conc 32.7 g/dL (32-36); Mean Corpuscular Hgb 28.7 pg (27.0-32.0); Mean Corpuscular Volume 87.9 fL (81-99); Mean Platelet Vol. 8.6 fl (6.2-12.0); Monocyte# 0.96 X10^3/uL; Monocyte% 6.6 % (0-10); NRBC Flagged by Analyzer 0 % (0-5); Neutrophil # 11.41 X10^3/uL (2.7-7.7); Neutrophil % 78.1 % (47-70); Platelet Count 397 K/mm3 (150-450); RBC Distribution Width CV 14.7 % (11.6-14.6); RBC Distribution Width SD 47.4 fl (35.1-43.9); Red Blood Count 4.56 M/mm3 (4.2-5.4); White Blood Count 14.6 K/mm3 (4.4-11.0)
--- NOTE | 2023-03-29 19:20 | PCM.HP.STD ---
HPI - General General Date of Admission: 03/29/23 Date of Service: 03/29/23 Chief Complaint: Fall HPI Narrative CAROL WISE, is a 77 F with a significant history of hypertension, chronic atrial fibrillation on Coumadin; diabetes mellitus and dementia who lives at the [facility] presenting with a fall. Patient sits in a wheelchair because she is unable to stand. She reported that her wheelchair was unlocked and she rolled out from the wheelchair landing on her right side; and onto the ground. She fell onto her right side. Following the fall she had headache, neck pain and right hip pain. Imaging at the emergency department showed right femoral neck fracture. Emergency Department Doctor discussed the case with Dr. Fabio Sena. [facility] Medical History Dementia Depression Diabetes mellitus GERD (gastroesophageal reflux disease) HTN (hypertension) Irritable bowel syndrome (IBS) Left cataract Osteoarthritis PVD (peripheral vascular disease) TIA (transient ischemic attack) Tourette syndrome Home Medications vit C 250 mg-vit E 90 mg-zinc 40 mg-copper 1 bj-[id number]-qqcqtd capsule (PreserVision AREDS-2) 1 ea PO BID 05/23/14 [History Last Taken 11/20/14] omeprazole 20 mg capsule,delayed release 20 mg PO DAILY 06/15/14 [History Last Taken 03/29/23] furosemide 40 mg tablet 40 mg PO DAILY 11/20/14 [History Last Taken 03/29/23] warfarin 3 mg tablet (Jantoven) 4 mg PO MOTUWETHFRSA 11/20/14 [History Last Taken 03/28/23] acetaminophen 500 mg tablet 1,000 mg PO TID 05/14/17 [History Last Taken 03/29/23] losartan 100 mg tablet 100 mg PO DAILY 05/14/17 [History Last Taken 03/29/23] diltiazem HCl 180 mg capsule,extended release 24 hr 240 mg PO DAILY 03/29/23 [History Last Taken 03/29/23] duloxetine 30 mg capsule,delayed release 30 mg PO DAILY DEPRESSION 03/29/23 [History Last Taken 03/29/23] omega-3 fatty acids 1,000 mg capsule 1,000 mg PO DAILY SUPPLEMENT 03/29/23 [History Last Taken 03/29/23] peg [id number]-yubhxhvs 1 %-0.2 %-0.2 % eye drops (Artificial Tears ([id number])) 1 drp EACH EYE 4XD DRY EYE 03/29/23 [History Last Taken 03/29/23] risperidone 0.5 mg tablet 2 mg PO BID 03/29/23 [History Last Taken 03/29/23] vit A 300 mcg-C 200 mg-E 27 mg-lutein 2 mg and minerals tablet (Ocuvite with Lutein) 1 tab PO DAILY SUPPLEMENT 03/29/23 [History Last Taken 03/29/23] Allergy/AdvReac Type Severity Reaction Status Date / Time bismuth subsalicylate Allergy NEEDS Verified 03/29/23 16:38 [From Pepto-Bismol] FOLLOW-UP Penicillins Allergy Swelling Verified 05/23/14 20:30 shrimp Allergy Angioedema Verified 08/23/22 15:27 sulfamethoxazole Allergy NEEDS Verified 03/29/23 16:38 [From Bactrim] FOLLOW-UP trimethoprim [From Bactrim] Allergy NEEDS Verified 03/29/23 16:38 FOLLOW-UP Family History (Updated 03/29/23 @ 20:[address] Robin Wheeler MD) Other Heart disease Hypertension Surgical History Hx of cholecystectomy Hx of tonsillectomy Social History Smoking Status: Never smoker ROS ROS Narrative Pertinent positives and pertinent negatives as noted in HPI. All other systems were reviewed and are negative Vital Signs Vital Signs Vital Signs: 03/29/23 16:39 03/29/23 17:00 03/29/23 18:37 Temperature 97.4 F L Temperature Source Temporal Pulse Rate 86 69 Respiratory Rate 16 16 Respiratory Effort Normal Non-Labored Blood Pressure 154/67 H 159/94 H Blood Pressure Mean 96 115 Pulse Ox 100 99 Oxygen Delivery Method Room Air Room Air Weight Weight: 107.1 kg Body Mass Index (BMI) 38.1 Physical Exam Narrative Physical exam: General: Well-nourished, well-developed. Head: Normocephalic, atraumatic, no tenderness Eyes: Blurry vision. EOMI ENT, no trauma, moist mucous membranes, no rhinorrhea Neck: Nontender, No thyromegaly. CVS: Irregularly irregular rate and rhythm. S1-S2 present. No murmur, gallop or rub. Respiratory : clear to auscultation bilaterally, chest wall nontender Abdomen: Soft, nontender, nondistended, normal bowel sounds, no masses : Deferred Back: Nontender, no CVA tenderness, no midline spinal tenderness, deformities, step-offs Extremities: Edema bilateral feet. Tender right hip. Can move left lower leg while in bed. Movement of right lower leg was not tested secondary to fracture. Skin: Normal color, no trauma, abrasions Neuro: Alert, oriented to place. Patient stated that it is or 31 March instead of march. Patient did not know the year. Irregular size right pupil. Psychiatry: Normal mood. Normal affect. Not depressed. Not anxious. Results Lab / Micro Data Result Diagrams: 03/29/23 19:00 03/29/23 19:00 Labs: Laboratory Results - last 24 hr 03/29/23 19:00: WBC 14.6 H, RBC 4.56, Hgb 13.1, Hct 40.1, MCV 87.9, MCH 28.7, MCHC 32.7, RDW Std Deviation 47.4 H, RDW Coeff of Meryl 14.7 H, Plt Count 397, MPV 8.6, Immature Gran % (Auto) 1.400 H, Neut % (Auto) 78.1 H, Lymph % (Auto) 11.4 L, [place] % (Auto) 6.6, Eos % (Auto) 2.2, Baso % (Auto) 0.3, Absolute Neuts (auto) 11.4 H, Absolute Lymphs (auto) 1.66, Nucleated RBC % [address] 03/29/23 16:57 IMPRESSION: There are no acute findings. Chronic involutional changes of the brain. Electronically Signed: Tulio Kasper MD at 17:31 EDT , Cervical Spine CT 03/29/23 16:57 IMPRESSION: Degenerative changes of the cervical spine. There are no acute findings. Electronically Signed: Tulio Kasper MD at 17:58 EDT , Chest X-Ray 03/29/23 17:25 IMPRESSION: There are no acute findings. Electronically Signed: Tulio Kasper MD at 18:03 EDT , Femur X-Ray 03/29/23 17:25 IMPRESSION: 1. Acute fracture of right femoral neck. 2. Degenerative arthrosis. There is a moderate volume joint effusion. Electronically Signed: Tulio Kasper MD at 18:13 EDT , Knee X-Ray 03/29/23 17:25 IMPRESSION: Degenerative arthrosis. Effusion, as described above. Electronically Signed: Tulio Kasper MD at 18:15 EDT , Pelvis X-Ray 03/29/23 17:25 IMPRESSION: Acute fracture of right femoral neck. Electronically Signed: Tulio Kasper MD at 18:09 EDT , Assessment & Plan Assessment/Plan (1) Closed fracture of neck of right femur: (2) Acute hypokalemia: (3) Benign essential hypertension: (4) Type II diabetes mellitus: (5) Atrial fibrillation: (6) Chronic anticoagulation: PLAN: Plan Closed fracture of neck of right femur Imaging: Impression of pelvis x-ray by radiologist: Acute fracture of right femoral neck. Pelvis x-ray was visualized and independently interpreted and I agree radiology interpretation. Right knee x-ray with degenerative arthrosis and moderate effusion. Right femur x-ray is consistent with pelvis x-ray and it showed acute fracture of right femoral neck Chest x-ray with no acute findings Cervical spine CT and brain CT did not show any acute pathology. Emergent department doctor discussed the case with Dr. Fabio Sena. Inpatient consult for orthopedic surgery. Morphine IV and oxycodone as needed ordered. Tylenol as needed ordered. Bowel protocol and antiemetics IV ordered. Keep n.p.o. after midnight. While n.p.o. hold home Lasix. No IV fluids ordered at this time. Check vitamin D level. Preoperative EKG showed controlled A-fib which is not new. ACS NSQIP surgical risk calculator with below surgical risk. Acute hypokalemia Potassium presentation was 2.9. P.o. and IV replacement ordered. Placed on telemetry MedSurg. Trend BMP. Home Lasix stopped because of patient will be n.p.o. after midnight depression for surgery. Trend BMP. Benign essential hypertension Hypertension Blood pressure is not within goal Home blood pressure medication continued. As needed hydralazine ordered. Trend blood pressure and adjust blood pressure medications. Chronic anticoagulation Patient is on Coumadin for A-fib On presentation INR was 2.1. Discussed with orthopedic surgeon and will give vitamin K p.o. Will trend PT/INR. If INR is stable outpatient with surgery Type 2 diabetes mellitus Blood glucose is stable Trend BMP. Acute hypokalemia Potassium was 2.9, replace, trend. Hypomagnesemia Magnesium was 1.4. Replace. DVT prophylaxis INR value as above and vitamin K ordered. SCDs ordered. Charges/Coding Visit Charges Inpatient E&M: 33653 Init Hosp L3
[2023-03-29 19:31] LABS: Anion Gap 10 (5-15); BUN 12 mg/dL (7-18); BUN/Creat Ratio 13.2 RATIO (10-20); Calcium,Total 9.3 mg/dL (8.5-10.1); Chloride 100 mmol/L (98-107); Creatinine, Serum 0.91 mg/dL (0.55-1.02); EST Glomerular Filtration Rate 64 mL/min (>60); Est Glom Filt Rate - Afr Amer 77 mL/min (>60); Estimated Creatinine Clearance 48.47 ml/min; Glucose 142 mg/dL (74-106); Potassium 2.9 mmol/L (3.5-5.1); Sodium Level 137 mmol/L (136-145)
[2023-03-29 19:39] LABS: International Normalized Ratio 2.1; Prothrombin Time (Protime)PT. 23.7 SECONDS (11.7-14.9)
[2023-03-29 20:04] VITALS: BP 111/65; PULSE 85; RESP 16; TEMP 37; O2SAT 95
[2023-03-29 20:37] VITALS: BMI 36.3
[2023-03-29 21:09] VITALS: BP 146/74; PULSE 96; RESP 18; TEMP 37.1; O2SAT 95
[2023-03-29 21:20] LABS: Magnesium 1.4 mg/dL (1.6-2.6)
[2023-03-29] MEDS: Acetaminophen 500 MG Tablet 1000 MG PO (21:45)
[2023-03-29] MEDS: Potassium Chloride Oral Tablet 20 MEQ 40 MEQ PO (21:46)
[2023-03-29] MEDS: MELATONIN 3 MG TABLET PO (21:46)
[2023-03-29] MEDS: 0.9% Saline Lock 10 ML Syringe IV (21:48)
[2023-03-29] MEDS: Glycerin/Hypromellose/PEG400 15 ml Bottle 1 DRP EACH EYE (21:48)
[2023-03-29] MEDS: Multivitamin (Healthy Eyes) Capsule 1 CAP PO (21:51)
[2023-03-29] MEDS: RisperiDONE 2 MG Tablet PO (21:52)
[2023-03-29] MEDS: Senna/Docusate Sodium 1 Tablet 2 TABLET PO (21:52)
[2023-03-29] MEDS: Phytonadione (Vit K1) 5 MG TABLET PO (21:57)
[2023-03-29] MEDS: Potassium Chloride 10mEq/100mL 10 MEQ/100 ML IV.SOLN. 100 MEQ IV BOLUS ×2 (22:07→23:46)
[2023-03-30] VITALS (13 sets, daily range): BP systolic 117–178; BP diastolic 66–117; PULSE 73–107; RESP 16–20; TEMP 36.4–37.3; O2SAT 93–100
--- NOTE | 2023-03-30 | HIP_PTH ---
PATIENT: CAROL WISE LOC: [facility] U#:[id number] AGE/SX: 77/F ROOM: [facility] RE03/29/[address]: Dr. Claribel Ortega MD : 1945 BED: 1 DIS: 04/04/2023 SPEC #: [id number] RECD: 04/02/23 06:59 STATUS: TANYA VASQUEZ #: [id number] NAHOMY: 03/30/23 00:[address]: Fabio Sena DEPT: SURGICAL PATHOLOGY RECD BY: Janessa Herrera ENTERED: 04/02/23 08:21 SP TYPE: TOTAL HIP OTHR DR: MD Dr. Lionel Perez MD Dr. Nana Yaa Koram, MD Tissues: Hip, NOS Procedures: Decalcification bone/plaque Surgery Specimen Level IV HEADER OPERATION: Hemiarthroplasty PRE-OP DIAGNOSIS: Closed fracture of neck of right femur TISSUE SUBMITTED: Bone right hip MICROSCOPIC DIAGNOSIS Bone right hip, total hip replacement/resection: Femoral head and detached pieces of bone with focal area of hemorrhage, clinically fractured neck femur. A piece of fibroadipose tissue, fibroconnective tissue and reactive synovial tissue. ANJALI:maureen 04/05/2023 MICROSCOPIC DESCRIPTION Slides are reviewed. GROSS DESCRIPTION Received is one container labeled with the patient's name and designated bone right hip. The specimen consists of a gonzalez femoral head measuring 4.5 x 4.5 x 4.0 cm. The articular surface is smooth. Resection margin is irregular and hemorrhagic. Also present in the specimen container are two detached pieces of bone measuring in aggregate 3.5 x 4.5 x 1.5 cm. Also present in the container is a piece of soft tissue measuring 4.5 x 0.6 x 0.5 cm. Paperhanger Pipe sections are submitted in three cassettes as follows: 1??soft tissue, 2 - detached pieces of bone, 3 - femoral head. Cassettes 2 & 3 are submitted after decalcification. / ANJALI:maureen 04/02/2023 TC:5 CPT: 97016, 13985
[2023-03-30] MEDS: Potassium Chloride 10mEq/100mL 10 MEQ/100 ML IV.SOLN. 100 MEQ IV BOLUS ×2 (00:56→02:15)
[2023-03-30] MEDS: 0.9% Saline Lock 10 ML Syringe IV ×2 (01:35→21:59)
[2023-03-30] MEDS: hydrALAZINE 20 MG/ML Vial 5 MG IV (01:35)
[2023-03-30] MEDS: Acetaminophen 500 MG Tablet 1000 MG PO ×3 (06:04→21:54)
[2023-03-30] MEDS: Magnesium Sulfate 4gm/100mL 4 GM/100 ML IV.SOLN. IV (06:11)
[2023-03-30 06:14] LABS: Absolute Lymphocyte Count 1.03 X10^3/uL (0.83-4.51); Absolute Neutrophil Count 11.8 X10^3/uL (2.0-7.7); Basophil# 0.03 X10^3/uL; Basophil% 0.2 % (0-1); Eosinophil# 0.02 X10^3/uL; Eosinophils% 0.1 % (0-5); Hematocrit 36.7 % (37-47); Hemoglobin 12.3 g/dL (12.0-15.0); Lymphocyte # 1.03 X10^3/ul (0.83-4.51); Lymphocyte % 7.6 % (19-41); Mean Corp Hgb Conc 33.5 g/dL (32-36); Mean Corpuscular Hgb 29.4 pg (27.0-32.0); Mean Corpuscular Volume 87.8 fL (81-99); Mean Platelet Vol. 8.6 fl (6.2-12.0); Monocyte# 0.65 X10^3/uL; Monocyte% 4.8 % (0-10); NRBC Flagged by Analyzer 0 % (0-5); Neutrophil # 11.77 X10^3/uL (2.7-7.7); Neutrophil % 86.6 % (47-70); Platelet Count 418 K/mm3 (150-450); RBC Distribution Width CV 14.7 % (11.6-14.6); RBC Distribution Width SD 47.4 fl (35.1-43.9); Red Blood Count 4.18 M/mm3 (4.2-5.4); White Blood Count 13.6 K/mm3 (4.4-11.0)
[2023-03-30 06:24] LABS: Prothrombin Time (Protime)PT. 23.3 SECONDS (11.7-14.9)
[2023-03-30 06:51] LABS: Anion Gap 6 (5-15); BUN 13 mg/dL (7-18); BUN/Creat Ratio 14.9 RATIO (10-20); Calcium,Total 9.5 mg/dL (8.5-10.1); Chloride 102 mmol/L (98-107); Creatinine, Serum 0.87 mg/dL (0.55-1.02); EST Glomerular Filtration Rate 67 mL/min (>60); Est Glom Filt Rate - Afr Amer 81 mL/min (>60); Estimated Creatinine Clearance 48.73 ml/min; Glucose 165 mg/dL (74-106); Potassium 4.5 mmol/L (3.5-5.1); Sodium Level 134 mmol/L (136-145)
[2023-03-30 08:19] LABS: Vitamin D,25 Hydroxy 36.9 ng/mL
[2023-03-30 08:21] LABS: Magnesium 1.5 mg/dL (1.6-2.6)
--- NOTE | 2023-03-30 09:07 | CASEMGMT ---
Discharge Planning Patient resides at [facility]. Return referral sent via [employer]. Asked if pre-cert will be needed. Awaiting response. Antionette Chavarria, Discharge Planning Asst.
--- NOTE | 2023-03-30 09:52 | CASEMGMT ---
Social Work SW reviewed chart, pt is here from . SW called, spoke w/Vicky. Pt is intermediate, has a Medicaid bedhold. They would like to try to skill pt however when she returns so will want pt to get a precert prior to pt readmitting to [facility]. Pt was able to stand and pivot from her wheelchair prior to this hospitalization. SW spoke w/pt and daughter in room. SW confirmed w/daughter Loren that the plan is for pt to return to [facility] when ready. Daughter does not need a list of other nursing homes in the area. SW explained to daughter and pt that they will want to skill pt so will need a precert to return, and will be here through the weekend. Daughter states understanding. julia Adan tool planner, to send updates to [facility]. SW will continue to follow, pt will be here through the weekend. NEETU Cordova
[2023-03-30] MEDS: Nystatin Powder 15gm Bottle 1 APPLIC TOPICAL ×2 (11:35→21:55)
[2023-03-30] MEDS: Menthol/Lanolin/Calamine/Znox 113 GM Tube 1 APPLIC TOPICAL ×2 (11:35→21:56)
[2023-03-30] MEDS: Glycerin/Hypromellose/PEG400 15 ml Bottle 1 DRP EACH EYE ×3 (11:36→21:56)
[2023-03-30 11:43] LABS: International Normalized Ratio 1.8; Prothrombin Time (Protime)PT. 21.2 SECONDS (11.7-14.9)
--- NOTE | 2023-03-30 14:05 | PN_ITS ---
Subjective Subjective Patient seen and examined. She was admitted with a complaint of mechanical fall and pain in the right hip and found to have right hip fracture. She is due to have surgery today. She has no complaints this morning. Pain is well controlled unless she moves. Review of systems otherwise negative. She has remained hemodynamically stable. Objective Data Objective Data Vital Signs: Vital Signs Temp Pulse Resp BP Pulse Ox O2 Del Method 98.7 F 76 16 136/80 H 97 Room Air 03/30/23 12:30 03/30/23 12:30 03/30/23 12:30 03/30/23 12:30 03/30/23 12:30 03/30/23 12:30 Oxygen Delivery Method Room Air Weight: 218 lb 7.649 oz Body Mass Index (BMI) 36.3 Intake & Output: Intake and Output for Last 24 Hours 03/28/23 03/29/23 03/30/23 23:59 23:59 23:59 Intake Total 100 / 200 600.50 / 600.50 Output Total 500 / 500 Balance 100 / 200 100.50 / 100.50 Lab / Micro Data Result Diagrams: 03/30/23 05:55 03/30/23 05:55 Labs: Laboratory Results - last 24 hr 03/29/23 19:00: WBC 14.6 H, RBC 4.56, Hgb 13.1, Hct 40.1, MCV 87.9, MCH 28.7, MCHC 32.7, RDW Std Deviation 47.4 H, RDW Coeff of Meryl 14.7 H, Plt Count 397, MPV 8.6, Immature Gran % (Auto) 1.400 H, Neut % (Auto) 78.1 H, Lymph % (Auto) 11.4 L , [place] % (Auto) 6.6, Eos % (Auto) 2.2, Baso % (Auto) 0.3, Absolute Neuts (auto) 11.4 H, Absolute Lymphs (auto) 1.66, Nucleated RBC % 0 03/29/23 19:00: Sodium 137, Potassium 2.9 L, Chloride 100, Carbon Dioxide 27.0, Anion Gap 10, BUN 12, Creatinine 0.91, Estim Creat Clear Calc 48.47, Est GFR (MDRD) Af Amer 77, Est GFR (MDRD) Non-Af 64, BUN/Creatinine Ratio 13.2, Glucose 142 H, Calcium 9.3 03/29/23 19:00: Blood Type O POSITIVE, Antibody Screen NEGATIVE 03/29/23 19:00: PT 23.7 H, INR 2.1 03/29/23 19:00: Magnesium 1.4 L 03/30/23 05:55: Vitamin D 25-Hydroxy 36.9 03/30/23 05:55: WBC 13.6 H, RBC 4.18 L, Hgb 12.3, Hct 36.7 L, MCV 87.8, MCH 29.4, MCHC 33.5, RDW Std Deviation 47.4 H, RDW Coeff of Meryl 14.7 H, Plt Count 418, MPV 8.6, Immature Gran % (Auto) 0.700, Neut % (Auto) 86.6 H, Lymph % (Auto) 7.6 L, [place] % (Auto) 4.8, Eos % (Auto) 0.1, Baso % (Auto) 0.2, Absolute Neuts (auto) 11.8 H, Absolute Lymphs (auto) 1.03, Nucleated RBC % 0 03/30/23 05:55: PT 23.3 H, INR 2.0 03/30/23 05:55: Sodium 134 L, Potassium 4.5, Chloride 102, Carbon Dioxide 26.0, Anion Gap 6, BUN 13, Creatinine 0.87, Estim Creat Clear Calc 48.73, Est GFR (MDRD) Af Amer 81, Est GFR (MDRD) Non-Af 67, BUN/Creatinine Ratio 14.9, Glucose 165 H, Calcium 9.5 03/30/23 05:55: Hemoglobin A1c 6.0 H 03/30/23 05:55: Magnesium 1.5 L 03/30/23 11:18: PT 21.2 H, INR 1.8 Radiography Diagnostic Testing: Radiology Impression Brain CT 03/29/23 16:57 IMPRESSION: There are no acute findings. Chronic involutional changes of the brain. Electronically Signed: Tulio Kasper MD at 17:31 EDT , Cervical Spine CT 03/29/23 16:57 IMPRESSION: Degenerative changes of the cervical spine. There are no acute findings. Electronically Signed: Tulio Kasper MD at 17:58 EDT , Chest X-Ray 03/29/23 17:25 IMPRESSION: There are no acute findings. Electronically Signed: Tulio Kasper MD at 18:03 EDT , Femur X-Ray 03/29/23 17:25 IMPRESSION: 1. Acute fracture of right femoral neck. 2. Degenerative arthrosis. There is a moderate volume joint effusion. Electronically Signed: Tulio Kasper MD at 18:13 EDT Reading Location ID and State: [facility] / [place] , Service support , Knee X-Ray 03/29/23 17:25 IMPRESSION: Degenerative arthrosis. Effusion, as described above. Electronically Signed: Tulio Kasper MD at 18:15 EDT , Pelvis X-Ray 03/29/23 17:25 IMPRESSION: Acute fracture of right femoral neck. Electronically Signed: Tulio Kasper MD at 18:09 EDT , Rhythm Strip Rhythm Strip: A-fib Rate: 89 Ectopy: PVC(s) Physical Exam Const alert, oriented x3 and no apparent distress General Appearance: cooperative HEENT normocephalic, head/scalp atraumatic, moist oral mucous membranes and oropharynx normal Eyes PERRL and EOMs intact bilaterally Neck supple and no JVD Lymph Lymphatic: no lymphadenopathy noted and no lymphedema noted Resp normal respiratory effort, normal air movement and clear to auscultation bilaterally Cardio regular rate, regular rhythm, S1 normal heart sound, S2 normal heart sound and no murmurs Palpation: normal PMI GI normal to inspection, nondistended, normoactive bowel sounds, soft to palpation and non-tender Extremity normal capillary refill and no clubbing, cyanosis or edema Extremity Narrative: RLE shortened and externally rotated Skin General Skin Exam: no breakdown Neuro CN's II-XII intact bilaterally, no focal motor deficits and no sensory deficits noted Psych thought process normal, cooperative and affect normal Appearance: appropriate Assessment & Plan Assessment/Plan (1) Closed fracture of neck of right femur: PLAN: Plan #RIght closed femoral neck fracture * due to mechanical fall * right femur and pelvis imaging showed acute fracture of right gemoral neck * orthopedic surgery on board * On p.o. oxycodone, p.o. Tylenol and IV morphine as needed. * For surgery today. * #Hypokalemia: Replaced. #Benign essential hypertension: IV hydralazine as needed. On p.o. blood pressure medications-losartan and Cardizem #A-fib: On Coumadin for A-fib. INR was 2.1 on admission. coumadin on hold. Resume after surgery. On Cardizem #Hypomagnesemia: Magnesium was 1.4. Came up to 1.5 after replacement. Will continue to replace and trend #Type 2 diabetes mellitus: A1c 6. Currently n.p.o. for surgery. Insulin sliding scale. Accu-Cheks every 6 hourly. DVT prophylaxis; SCDs Charges/Coding Visit Charges Inpatient E&M: 96429 Subs Hosp L2
--- NOTE | 2023-03-30 14:54 | CHAPLAIN ---
Type of Pastoral Visit _x__ Initial Visit ___ Follow-up Visit ___ On-call Visit ___ General Patient Visit ___ Spiritual Assessment ___ Family Conference ___ Bereavement ___ Rapid Response ___ Code Blue ___ Other (describe below) Pastoral Care Referral From __x_ Patient ___ Family ___ Nurse ___ Physician ___ Control Clerk Subassembly ___ Fingerer ___ Other (describe below) Sacrament/Intervention _x__ Active listening ___ Anointing ___ Hoahaoism ___ Bereavement ___ Communion ___ Justine exploration ___ ___ Life review ___ Prayer ___ Reconciliation ___ Sacrament of Sick _x__ Supportive presence ___ Wedding ___ Other (describe below) Pastoral Comments patient is awake but resting in bed; two of her four children are present currently; pt not sure of any want at this time; surgery will come when cleared for it
[2023-03-30 15:40] LABS: International Normalized Ratio 1.4; Prothrombin Time (Protime)PT. 17.1 SECONDS (11.7-14.9)
--- NOTE | 2023-03-30 17:05 | NURSING ---
pt off floor for hip sx @ [id number]
[2023-03-30] MEDS: Bupivacaine Mpf 0.5% 30 ML VIAL (20:13)
--- NOTE | 2023-03-30 20:17 | PCM.OPRPT ---
Problems Associated Problem List Diagnoses (1) Closed fracture of neck of right femur: Report of Operation Date of Procedure: 03/30/23 Pre-Operative Diagnosis: right femoral neck fracture Post-Operative Diagnosis: same Surgery/Procedure Performed:: right hip cemented hemiarthroplasty Surgeon: Fabio Sena Type of Anesthesia: General and Local Anesthesiologist: Emilia Khan Estimated Blood Loss (mL): 50 Description of Procedure: Patient brought to the operating room theater. Placed supine on the table. General anesthesia induced. 2 g IV Ancef administered prior to the start of the procedure. Patient transferred right side up lateral decubitus with the aid of the positioner pegboard. All bony prominences padded axillary roll placed. SCD on the nonoperative leg. Leg prepped and draped in the usual sterile fashion with chlorhexidine-based prep solution allowing over 3 minutes drying time prior to draping. Preoperative timeout performed to confirm the site patient and the surgery. Began by making a standard lateral incision at the proximal femur. Carried dissection down through skin and subcutaneous tissue to meticulous hemostasis. Incised the tensor fascia sara in line with skin incision. Remove the greater trochanteric bursa. Sharply released the anterior one third of the abductors off the greater trochanter. Carried dissection down through down to the hip capsule. Made a T-shaped capsulotomy. Tagged each limb. Made the neck cut about 1 fingerbreadth above the level of the lesser trochanter. Removed the head using the corkscrew device. Removed the ligamentum teres. Slightly incised the transverse acetabular ligament. Use lateralized box office attendant osteotome followed by the canal finder and a reamer up to a size 6 to plan for Sha Accolade cemented Dustin hip. Try to reduce this but patient had intraoperative crack in the medial calcar this only propagated about 2 cm. Decided to remove the trial and passed a braided metal cable distal to the lesser trochanter tensioned this appropriately and crimped and cut the cable short. Remeasured, and my neck cut was a little proud therefore dropped this down a little bit more down to a more appropriate level about 1 cm above the lesser trochanter. Then I used the size 5 broach which seemed more appropriate, and with a standard neck offset with a size 49 mm bipolar head. Trial reduction was appropriate stable in flexion internal rotation and external rotation with extension. No impingement moved stable through range of motion with normal leg lengths equal on both sides. The trial components were removed canal prepped using pulse lavage. Cement restrictor was placed. Measured for the distal centralizer. Chose a Sha Accolade size 5 standard neck length standard offset 0 mm offset with 49 mm component head. Used third-generation cement mixing techniques. Pressurized the cement in the canal patient stable through pressurization. Then I inserted the stem in appropriate version and allowed the cement to fully harden and remove any excess cement. Trunnion was fully cleaned followed by impaction of the bipolar head. Reduction was then performed this was again trialed and felt to be stable. Irrisept was used to thoroughly irrigate the joint and wound. The capsule was closed with #1 Vicryl the abductors were then repaired to the greater trochanter with FiberWire suture through bone tunnels. I then closed the tensor fascia sara with a running strata fix #1 suture. Subcutaneous tissue closed with interrupted 2-0 Vicryl and running 2-0 Vicryl sutures and skin with 3-0 Monocryl. 20 cc quarter percent bupivacaine instilled in and around the incision site. Skin cleaned with wet and dry dressing followed application of Steri-Strips and silver Mepilex. Patient woken up from the general anesthetic transferred off the operating table and taken to postanesthetic care unit in stable addition. All sponge needle instrument counts were correct no complications. Plan for the patient back on their warfarin per the hospitalist starting postoperative 24 hours later. Xray in PACU. Complications intra op calcar fracture Admit VTE Documentation VTE Present on Admission: Yes VTE Mechan Device Prophylaxis: SCD's VTE Pharm Prophylaxis ordered?: Yes Procedures Musculoskeletal [id number]: Other Procedure See Report
--- NOTE | 2023-03-30 20:40 | RAD_ITS ---
STUDY: X-RAY - PELVIS AND RIGHT HIP REASON FOR EXAM: Female, 77 years old. post op- PER SURGEON 1 IMAGE TECHNIQUE: 1 views of the pelvis and hip. COMPARISON: 03/29/2023 FINDINGS: There is a non-specific bowel gas pattern. Normal visualized soft tissue structures. Normal bilateral iliac wings, sacroiliac joints and visualized sacrum. Normal bilateral superior and inferior pubic rami. Normal pubic symphysis. Normal bilateral ischial tuberosities. Interval recent right hip hemiarthroplasty with subcutaneous emphysema for treatment of femoral neck fracture.. RAD/Hip Min 2 Views (Portable) IMPRESSION: Recent right hip hemiarthroplasty. Electronically Signed: Efraín Christensen MD at 21:10 EDT ,
[2023-03-30 21:01] LABS: Bedside Glucose 148 mg/dL (74-106)
[2023-03-30] MEDS: Senna/Docusate Sodium 1 Tablet 2 TABLET PO (21:54)
[2023-03-30] MEDS: Multivitamin (Healthy Eyes) Capsule 1 CAP PO (21:54)
[2023-03-30] MEDS: RisperiDONE 2 MG Tablet PO (21:55)
[2023-03-31] VITALS (11 sets, daily range): BP systolic 90–128; BP diastolic 52–93; PULSE 93–130; RESP 16–20; TEMP 36.2–37.2; O2SAT 92–97
[2023-03-31] MEDS: Acetaminophen 500 MG Tablet 1000 MG PO ×3 (06:09→20:54)
[2023-03-31 06:48] LABS: Absolute Lymphocyte Count 1.26 X10^3/uL (0.83-4.51); Absolute Neutrophil Count 12.7 X10^3/uL (2.0-7.7); Basophil# 0.03 X10^3/uL; Basophil% 0.2 % (0-1); Eosinophil# 0.06 X10^3/uL; Eosinophils% 0.4 % (0-5); Hematocrit 34.3 % (37-47); Hemoglobin 11.2 g/dL (12.0-15.0); Lymphocyte # 1.26 X10^3/ul (0.83-4.51); Lymphocyte % 8.1 % (19-41); Mean Corp Hgb Conc 32.7 g/dL (32-36); Mean Corpuscular Volume 88.9 fL (81-99); Mean Platelet Vol. 8.7 fl (6.2-12.0); Monocyte% 9.6 % (0-10); NRBC Flagged by Analyzer 0 % (0-5); Neutrophil % 81.1 % (47-70); Platelet Count 390 K/mm3 (150-450); RBC Distribution Width CV 14.7 % (11.6-14.6); RBC Distribution Width SD 47.8 fl (35.1-43.9); Red Blood Count 3.86 M/mm3 (4.2-5.4); White Blood Count 15.7 K/mm3 (4.4-11.0)
[2023-03-31 07:09] LABS: International Normalized Ratio 1.2; Prothrombin Time (Protime)PT. 15.4 SECONDS (11.7-14.9)
[2023-03-31 07:21] LABS: Anion Gap 4 (5-15); BUN 16 mg/dL (7-18); BUN/Creat Ratio 23.4 RATIO (10-20); Calcium,Total 8.8 mg/dL (8.5-10.1); Chloride 106 mmol/L (98-107); Creatinine, Serum 0.68 mg/dL (0.55-1.02); EST Glomerular Filtration Rate 89 mL/min (>60); Est Glom Filt Rate - Afr Amer 107 mL/min (>60); Estimated Creatinine Clearance 42.39 ml/min; Glucose 163 mg/dL (74-106); Potassium 4.1 mmol/L (3.5-5.1); Sodium Level 136 mmol/L (136-145)
[2023-03-31] MEDS: dilTIAZem CD 240 MG Capsule PO (08:26)
[2023-03-31] MEDS: Menthol/Lanolin/Calamine/Znox 113 GM Tube 1 APPLIC TOPICAL ×2 (08:28→20:53)
[2023-03-31] MEDS: Glycerin/Hypromellose/PEG400 15 ml Bottle 1 DRP EACH EYE ×4 (08:28→20:54)
[2023-03-31] MEDS: Pantoprazole Sodium 20 MG Tablet PO (08:29)
[2023-03-31] MEDS: Furosemide 40 MG Tablet PO (08:29)
[2023-03-31] MEDS: RisperiDONE 2 MG Tablet PO ×2 (08:29→20:54)
[2023-03-31] MEDS: Losartan Potassium 100 MG Tablet PO (08:29)
[2023-03-31] MEDS: Senna/Docusate Sodium 1 Tablet 2 TABLET PO ×2 (08:30→20:55)
[2023-03-31] MEDS: Nystatin Powder 15gm Bottle 1 APPLIC TOPICAL ×2 (08:30→20:53)
[2023-03-31] MEDS: Omega-3 Acid Ethyl Esters 1 GM Capsule PO (08:31)
[2023-03-31] MEDS: DULoxetine Hcl 30 MG Capsule PO (08:32)
[2023-03-31] MEDS: Multivitamin (Healthy Eyes) Capsule 1 CAP PO ×2 (08:32→20:56)
[2023-03-31] MEDS: Morphine 4 MG/ML Syringe IV (08:57)
[2023-03-31] MEDS: 0.9% Saline Lock 10 ML Syringe IV ×3 (08:57→20:55)
--- NOTE | 2023-03-31 11:20 | PN_ITS ---
Subjective Subjective Patient seen and examined. She complained of pain in her right hip. She remains tachcyardic. She didnt receive her cardizem yesterday as it was held yesterday prior to surgery. She received her dose today. REview of systems is otherwise negative. Objective Data Objective Data Vital Signs: Vital Signs Temp Pulse Resp BP Pulse Ox O2 Del Method O2 Flow Rate 97.2 F L 129 H 16 110/68 97 Room Air 2 03/31/23 08:21 03/31/23 08:21 03/31/23 08:21 03/31/23 08:21 03/31/23 08:21 03/31/23 08:21 03/30/23 23:35 Oxygen Flow Rate (L/min) 2 Oxygen Delivery Method Room Air Weight: 218 lb 7.649 oz Body Mass Index (BMI) 36.3 Intake & Output: Intake and Output for Last 24 Hours 03/29/23 03/30/23 03/31/23 23:59 23:59 23:59 Intake Total 100 / 200 720.50 / 720.50 200 / 200 Output Total 500 / 600 450 / 450 Balance 100 / 200 220.50 / 120.50 -250 / -250 Lab / Micro Data Result Diagrams: 03/31/23 06:33 03/31/23 06:33 Labs: Laboratory Results - last 24 hr 03/30/23 11:18: PT 21.2 H, INR 1.8 03/30/23 15:10: PT 17.1 H, INR 1.4 03/30/23 20:43: POC Glucose 148 H 03/31/23 06:33: PT 15.4 H, INR 1.2 03/31/23 06:33: WBC 15.7 H, RBC 3.86 L, Hgb 11.2 L, Hct 34.3 L, MCV 88.9, MCH 29.0, MCHC 32.7, RDW Std Deviation 47.8 H, RDW Coeff of Meryl 14.7 H, Plt Count 390, MPV 8.7, Immature Gran % (Auto) 0.600, Neut % (Auto) 81.1 H, Lymph % (Auto) 8.1 L, [place] % (Auto) 9.6, Eos % (Auto) 0.4, Baso % (Auto) 0.2, Absolute Neuts (auto) 12.7 H, Absolute Lymphs (auto) 1.26, Nucleated RBC % 0 03/31/23 06:33: Sodium 136, Potassium 4.1, Chloride 106, Carbon Dioxide 26.0, Anion Gap 4 L, BUN 16, Creatinine 0.68, Estim Creat Clear Calc 42.39, Est GFR (MDRD) Af Amer 107, Est GFR (MDRD) Non-Af 89, BUN/Creatinine Ratio 23.4 H, Glucose 163 H, Calcium 8.8 Radiography Diagnostic Testing: Radiology Impression Hip X-Ray 03/30/23 20:40 IMPRESSION: Recent right hip hemiarthroplasty. Electronically Signed: Efraín Christensen MD at 21:10 EDT , Rhythm Strip Rhythm Strip: A-fib Rate: 89 Ectopy: PVC(s) Physical Exam Const alert, oriented x3 and no apparent distress General Appearance: cooperative HEENT normocephalic, head/scalp atraumatic, moist oral mucous membranes and oropharynx normal Eyes PERRL and EOMs intact bilaterally Neck supple and no JVD Lymph Lymphatic: no lymphadenopathy noted and no lymphedema noted Resp normal respiratory effort, normal air movement and clear to auscultation bilaterally Cardio regular rate, regular rhythm, S1 normal heart sound, S2 normal heart sound and no murmurs Palpation: normal PMI GI normal to inspection, nondistended, normoactive bowel sounds, soft to palpation and non-tender Extremity normal capillary refill and no clubbing, cyanosis or edema Extremity Narrative: RLE shortened and externally rotated Skin General Skin Exam: no breakdown Neuro CN's II-XII intact bilaterally, no focal motor deficits and no sensory deficits noted Psych thought process normal, cooperative and affect normal Appearance: appropriate Assessment & Plan Assessment/Plan (1) Closed fracture of neck of right femur: PLAN: Plan #RIght closed femoral neck fracture * due to mechanical fall * right femur and pelvis imaging showed acute fracture of right femoral neck * she is POD 1 * orthopedic surgery on board * On p.o. oxycodone, p.o. Tylenol and IV morphine as needed. * For surgery today. * #Hypokalemia: Replaced. #Benign essential hypertension: IV hydralazine as needed. On p.o. blood pr essure medications-losartan and Cardizem #A-fib: On Coumadin for A-fib. INR was 2.1 on admission. coumadin on hold. Resume after surgery. On Cardizem #Hypomagnesemia: Magnesium was 1.4. Came up to 1.5 after replacement. Will continue to replace and trend #Type 2 diabetes mellitus: A1c 6. Currently n.p.o. for surgery. Insulin sliding scale. Accu-Cheks every 6 hourly. DVT prophylaxis; SCDs
--- NOTE | 2023-03-31 14:50 | PN.ORTHO_ITS ---
Subjective Subjective no voiced concerns, but patient has dementia Objective Data Objective Data Vital Signs: Vital Signs Temp Pulse Resp BP Pulse Ox O2 Del Method O2 Flow Rate 98.1 F 115 H 20 H 125/82 H 94 Room Air 2 03/31/23 14:00 03/31/23 14:00 03/31/23 14:00 03/31/23 14:00 03/31/23 14:00 03/31/23 14:00 03/30/23 23:35 Oxygen Flow Rate (L/min) 2 Oxygen Delivery Method Room Air Weight: 218 lb 7.649 oz Body Mass Index (BMI) 36.3 Intake & Output: Intake and Output for Last 24 Hours 03/29/23 03/30/23 03/31/23 23:59 23:59 23:59 Intake Total 100 / 200 720.50 / 720.50 440 / 440 Output Total 500 / 600 450 / 450 Balance 100 / 200 220.50 / 120.50 -10 / -10 Lab / Micro Data Attestation: I reviewed the patient's lab results. Result Diagrams: 03/31/23 06:33 03/31/23 06:33 Labs: Laboratory Results - last 24 hr 03/30/23 15:10: PT 17.1 H, INR 1.4 03/30/23 20:43: POC Glucose 148 H 03/31/23 06:33: PT 15.4 H, INR 1.2 03/31/23 06:33: WBC 15.7 H, RBC 3.86 L, Hgb 11.2 L, Hct 34.3 L, MCV 88.9, MCH 29.0, MCHC 32.7, RDW Std Deviation 47.8 H, RDW Coeff of Meryl 14.7 H, Plt Count 390, MPV 8.7, Immature Gran % (Auto) 0.600, Neut % (Auto) 81.1 H, Lymph % (Auto) 8.1 L, [place] % (Auto) 9.6, Eos % (Auto) 0.4, Baso % (Auto) 0.2, Absolute Neuts (auto) 12.7 H, Absolute Lymphs (auto) 1.26, Nucleated RBC % 0 03/31/23 06:33: Sodium 136, Potassium 4.1, Chloride 106, Carbon Dioxide 26.0, Anion Gap 4 L, BUN 16, Creatinine 0.68, Estim Creat Clear Calc 42.39, Est GFR (MDRD) Af Amer 107, Est GFR (MDRD) Non-Af 89, BUN/Creatinine Ratio 23.4 H, Glucose 163 H, Calcium 8.8 Radiography Diagnostic Testing: Radiology Impression Hip X-Ray 03/30/23 20:40 IMPRESSION: Recent right hip hemiarthroplasty. Electronically Signed: Efraín Christensen MD at 21:10 EDT , component looks well placed and hip reduced. Rhythm Strip Rhythm Strip: A-fib Rate: 89 Ectopy: PVC(s) Physical Exam Const alert and no apparent distress Extremity Extremity Narrative: drsg dry intact, no bruising, nvi distally, wiggles toes and ankle, edema but well perfused. Assessment & Plan Assessment/Plan (1) Closed fracture of neck of right femur: PLAN: WBAT but patient normally in wheelchair. Hospitalist to order warfarin dosing starting 24 hours post op.
[2023-03-31] MEDS: dilTIAZem 25 MG/5 ML Vial 20 MG IV BOLUS (17:31)
[2023-03-31] MEDS: dilTIAZem 25 MG/5 ML Vial 5 MG IV BOLUS (20:55)
[2023-03-31 21:56] LABS: Bedside Glucose 170 mg/dL (74-106)
[2023-04-01 03:40] VITALS: BP 114/61; PULSE 108; RESP 18; TEMP 36.6; O2SAT 95
[2023-04-01 06:00] LABS: Absolute Lymphocyte Count 1.77 X10^3/uL (0.83-4.51); Absolute Neutrophil Count 10.4 X10^3/uL (2.0-7.7); Basophil# 0.04 X10^3/uL; Basophil% 0.3 % (0-1); Eosinophil# 0.11 X10^3/uL; Eosinophils% 0.8 % (0-5); Hematocrit 31.3 % (37-47); Hemoglobin 10.1 g/dL (12.0-15.0); Lymphocyte # 1.77 X10^3/ul (0.83-4.51); Lymphocyte % 12.8 % (19-41); Mean Corp Hgb Conc 32.3 g/dL (32-36); Mean Corpuscular Hgb 29.1 pg (27.0-32.0); Mean Corpuscular Volume 90.2 fL (81-99); Monocyte# 1.39 X10^3/uL; Monocyte% 10.1 % (0-10); NRBC Flagged by Analyzer 0 % (0-5); Neutrophil # 10.37 X10^3/uL (2.7-7.7); Neutrophil % 75.2 % (47-70); Platelet Count 316 K/mm3 (150-450); RBC Distribution Width SD 49.2 fl (35.1-43.9); Red Blood Count 3.47 M/mm3 (4.2-5.4); White Blood Count 13.8 K/mm3 (4.4-11.0)
[2023-04-01 06:07] LABS: International Normalized Ratio 1.2; Prothrombin Time (Protime)PT. 15.2 SECONDS (11.7-14.9)
[2023-04-01 06:29] LABS: Anion Gap 5 (5-15); BUN 19 mg/dL (7-18); BUN/Creat Ratio 26.1 RATIO (10-20); Calcium,Total 8.6 mg/dL (8.5-10.1); Chloride 103 mmol/L (98-107); Creatinine, Serum 0.73 mg/dL (0.55-1.02); EST Glomerular Filtration Rate 82 mL/min (>60); Est Glom Filt Rate - Afr Amer 100 mL/min (>60); Estimated Creatinine Clearance 42.39 ml/min; Glucose 171 mg/dL (74-106); Potassium 3.5 mmol/L (3.5-5.1); Sodium Level 136 mmol/L (136-145)
[2023-04-01 07:30] VITALS: O2SAT 93
[2023-04-01] MEDS: Furosemide 40 MG Tablet PO (09:05)
[2023-04-01] MEDS: Senna/Docusate Sodium 1 Tablet 2 TABLET PO ×2 (09:05→20:17)
[2023-04-01] MEDS: Pantoprazole Sodium 20 MG Tablet PO (09:05)
[2023-04-01] MEDS: DULoxetine Hcl 30 MG Capsule PO (09:05)
[2023-04-01] MEDS: dilTIAZem CD 240 MG Capsule PO (09:05)
[2023-04-01] MEDS: Glycerin/Hypromellose/PEG400 15 ml Bottle 1 DRP EACH EYE ×3 (09:06→20:17)
[2023-04-01] MEDS: Losartan Potassium 100 MG Tablet PO (09:06)
[2023-04-01] MEDS: Omega-3 Acid Ethyl Esters 1 GM Capsule PO (09:07)
[2023-04-01] MEDS: Multivitamin (Healthy Eyes) Capsule 1 CAP PO ×2 (09:07→20:17)
[2023-04-01] MEDS: RisperiDONE 2 MG Tablet PO ×2 (09:07→20:18)
[2023-04-01] MEDS: Menthol/Lanolin/Calamine/Znox 113 GM Tube 1 APPLIC TOPICAL ×2 (09:08→20:18)
[2023-04-01] MEDS: Nystatin Powder 15gm Bottle 1 APPLIC TOPICAL ×2 (09:17→20:18)
[2023-04-01] MEDS: Glucerna Shake 120 ML LIQUID PO ×2 (09:17→14:48)
[2023-04-01 09:20] VITALS: BP 128/77; PULSE 127; RESP 18; TEMP 36.6; O2SAT 98
--- NOTE | 2023-04-01 09:27 | PN_ITS ---
Subjective Subjective Patient seen and examined. SHe has no active complaints. Pain is fairly well controlled. Review of systems is otherwise negative. She is a bit tachycardic this morning. She hasnt received her cardizem this morning. Objective Data Objective Data Vital Signs: Vital Signs Temp Pulse Resp BP Pulse Ox O2 Del Method O2 Flow Rate 97.8 F 127 H 18 128/77 H 98 Room Air 2 04/01/23 09:20 04/01/23 09:20 04/01/23 09:20 04/01/23 09:20 04/01/23 09:20 04/01/23 09:20 03/30/23 23:35 Oxygen Flow Rate (L/min) 2 Oxygen Delivery Method Room Air Weight: 218 lb 7.649 oz Body Mass Index (BMI) 36.3 Intake & Output: Intake and Output for Last 24 Hours 03/30/23 03/31/23 04/01/23 23:59 23:59 23:59 Intake Total 720.50 / 720.50 680 / 680 50 / 50 Output Total 500 / 600 950 / 950 100 / 100 Balance 220.50 / 120.50 -270 / -270 -50 / -50 Lab / Micro Data Result Diagrams: 04/01/23 05:31 04/01/23 05:31 Labs: Laboratory Results - last 24 hr 03/31/23 20:52: POC Glucose 170 H 04/01/23 05:31: PT 15.2 H, INR 1.2 04/01/23 05:31: WBC 13.8 H, RBC 3.47 L, Hgb 10.1 L, Hct 31.3 L, MCV 90.2, MCH 29.1, MCHC 32.3, RDW Std Deviation 49.2 H, RDW Coeff of Meryl 15.0 H, Plt Count 316, MPV 9.0, Immature Gran % (Auto) 0.800, Neut % (Auto) 75.2 H, Lymph % (Auto) 12.8 L, [place] % (Auto) 10.1 H, Eos % (Auto) 0.8, Baso % (Auto) 0.3, Absolute Neuts (auto) 10.4 H, Absolute Lymphs (auto) 1.77, Nucleated RBC % 0 04/01/23 05:31: Sodium 136, Potassium 3.5, Chloride 103, Carbon Dioxide 28.0, Anion Gap 5, BUN 19 H, Creatinine 0.73, Estim Creat Clear Calc 42.39, Est GFR (MDRD) Af Amer 100, Est GFR (MDRD) Non-Af 82, BUN/Creatinine Ratio 26.1 H, Glucose 171 H, Calcium 8.6 Rhythm Strip Rhythm Strip: A-fib Rate: 89 Ectopy: PVC(s) Physical Exam Const alert, oriented x3 and no apparent distress General Appearance: cooperative HEENT normocephalic, head/scalp atraumatic, moist oral mucous membranes and oropharynx normal Eyes PERRL and EOMs intact bilaterally Neck supple and no JVD Lymph Lymphatic: no lymphadenopathy noted and no lymphedema noted Resp normal respiratory effort, normal air movement and clear to auscultation bilaterally Cardio regular rhythm, S1 normal heart sound, S2 normal heart sound and no murmurs Cardio Narrative: tachycardic Palpation: normal PMI GI normal to inspection, nondistended, normoactive bowel sounds, soft to palpation and non-tender Extremity normal capillary refill and no clubbing, cyanosis or edema Extremity Narrative: intact dressing over right hip Skin General Skin Exam: no breakdown Neuro CN's II-XII intact bilaterally, no focal motor deficits and no sensory deficits noted Motor Exam: strength 5/5 throughout Psych thought process normal, cooperative and affect normal Appearance: appropriate Assessment & Plan Assessment/Plan (1) Closed fracture of neck of right femur: PLAN: Plan #RIght closed femoral neck fracture * due to mechanical fall * right femur and pelvis imaging showed acute fracture of right femoral neck * she is POD 2 and is s/p right hip cemented hemiarthroplasty * orthopedic surgery on board * On p.o. oxycodone, p.o. Tylenol and IV morphine as needed. * * #Hypokalemia: resolved. Will monitor #Benign essential hypertension: IV hydralazine as needed. On p.o. blood pressure medications-losartan and Cardizem #A-fib: On Coumadin for A-fib. INR today is 1.2. WIll resume coumadin today and give 8mg x 1. On cardizem #Hypomagnesemia: resolved. WIll monitor #Type 2 diabetes mellitus: A1c 6. Currently n.p.o. for surgery. Insulin sliding scale. Accu-Cheks every 6 hourly. DVT prophylaxis: coumadin.\ Disposotion: awaiting DC to [facility]. Awaiting precert. Charges/Coding Visit Charges Inpatient E&M: 32820 Subs Hosp L2
[2023-04-01 09:57] VITALS: BP 130/70; PULSE 130; RESP 14; TEMP 36.5; O2SAT 95
[2023-04-01 14:45] VITALS: BP 126/63; PULSE 103; RESP 16; TEMP 36.4; O2SAT 94
[2023-04-01] MEDS: Acetaminophen 500 MG Tablet 1000 MG PO ×2 (14:49→20:18)
[2023-04-01] MEDS: 0.9% Saline Lock 10 ML Syringe IV (18:08)
[2023-04-01 20:50] VITALS: BP 119/58; PULSE 92; RESP 16; RESP 18; TEMP 36.6; O2SAT 98
[2023-04-01 20:58] LABS: Bedside Glucose 178 mg/dL (74-106)
[2023-04-02] VITALS (10 sets, daily range): BP systolic 122–149; BP diastolic 63–104; PULSE 101–120; RESP 14–20; TEMP 36.4–37.1; O2SAT 90–98
[2023-04-02 05:54] LABS: Absolute Lymphocyte Count 1.68 X10^3/uL (0.83-4.51); Absolute Neutrophil Count 9.5 X10^3/uL (2.0-7.7); Basophil# 0.03 X10^3/uL; Basophil% 0.2 % (0-1); Eosinophil# 0.27 X10^3/uL; Eosinophils% 2.1 % (0-5); Hematocrit 30.9 % (37-47); Hemoglobin 10.2 g/dL (12.0-15.0); Lymphocyte # 1.68 X10^3/ul (0.83-4.51); Lymphocyte % 12.9 % (19-41); Mean Corpuscular Hgb 29.7 pg (27.0-32.0); Mean Corpuscular Volume 90.1 fL (81-99); Mean Platelet Vol. 9.3 fl (6.2-12.0); Monocyte# 1.43 X10^3/uL; NRBC Flagged by Analyzer 0 % (0-5); Neutrophil % 72.8 % (47-70); Platelet Count 282 K/mm3 (150-450); RBC Distribution Width CV 14.7 % (11.6-14.6); RBC Distribution Width SD 48.3 fl (35.1-43.9); Red Blood Count 3.43 M/mm3 (4.2-5.4)
[2023-04-02 06:01] LABS: International Normalized Ratio 1.3; Prothrombin Time (Protime)PT. 16.2 SECONDS (11.7-14.9)
[2023-04-02 06:30] LABS: Anion Gap 6 (5-15); BUN 21 mg/dL (7-18); BUN/Creat Ratio 31.9 RATIO (10-20); Chloride 101 mmol/L (98-107); Creatinine, Serum 0.66 mg/dL (0.55-1.02); EST Glomerular Filtration Rate 92 mL/min (>60); Est Glom Filt Rate - Afr Amer 112 mL/min (>60); Estimated Creatinine Clearance 42.39 ml/min; Glucose 167 mg/dL (74-106); Potassium 3.4 mmol/L (3.5-5.1); Sodium Level 136 mmol/L (136-145)
--- NOTE | 2023-04-02 09:21 | CASEMGMT ---
Discharge Planning Recieved a call from Vicky @ [facility]. They would like to skill patient and she will require a pre-cert. Updates sent via [employer]. They are to submit for pre-cert today. Antionette Chavarria, Discharge Planning Asst.
[2023-04-02] MEDS: Senna/Docusate Sodium 1 Tablet 2 TABLET PO ×2 (09:33→20:05)
[2023-04-02] MEDS: Glucerna Shake 120 ML LIQUID PO (09:33)
[2023-04-02] MEDS: Menthol/Lanolin/Calamine/Znox 113 GM Tube 1 APPLIC TOPICAL ×2 (09:33→20:06)
[2023-04-02] MEDS: dilTIAZem CD 240 MG Capsule PO (09:34)
[2023-04-02] MEDS: Furosemide 40 MG Tablet PO (09:34)
[2023-04-02] MEDS: Pantoprazole Sodium 20 MG Tablet PO (09:34)
[2023-04-02] MEDS: Multivitamin (Healthy Eyes) Capsule 1 CAP PO ×2 (09:34→20:08)
[2023-04-02] MEDS: Omega-3 Acid Ethyl Esters 1 GM Capsule PO (09:34)
[2023-04-02] MEDS: Potassium Chloride Oral Tablet 20 MEQ 40 MEQ PO (09:34)
[2023-04-02] MEDS: DULoxetine Hcl 30 MG Capsule PO (09:34)
[2023-04-02] MEDS: Glycerin/Hypromellose/PEG400 15 ml Bottle 1 DRP EACH EYE ×4 (09:34→20:06)
[2023-04-02] MEDS: Losartan Potassium 100 MG Tablet PO (09:34)
[2023-04-02] MEDS: RisperiDONE 2 MG Tablet PO ×2 (09:35→20:04)
--- NOTE | 2023-04-02 10:16 | NURSING ---
04/02/23@0845- REPORT GIVEN TO NICOLLE JHAVERI DUE TO ASSIGNMENT CHANGE.
--- NOTE | 2023-04-02 11:32 | PN_ITS ---
Subjective Subjective Patient seen and examined. She has no complaints today. Previous times otherwise negative. Her heart rate has not been well controlled and has been fluctuating. She is back on her Cardizem. INR was subtherapeutic at 1.3. Review of systems otherwise negative. Objective Data Objective Data Vital Signs: Vital Signs Temp Pulse Resp BP Pulse Ox O2 Del Method O2 Flow Rate 97.8 F 109 H 14 146/63 H 95 Room Air 2 04/02/23 10:00 04/02/23 10:00 04/02/23 10:00 04/02/23 10:00 04/02/23 10:00 04/02/23 10:00 03/30/23 23:35 Oxygen Flow Rate (L/min) 2 Oxygen Delivery Method Room Air Weight: 218 lb 7.649 oz Body Mass Index (BMI) 36.3 Intake & Output: Intake and Output for Last 24 Hours 03/31/23 04/01/23 04/02/23 23:59 23:59 23:59 Intake Total 680 / 680 650 / 650 Output Total 950 / 950 825 / 825 300 / 300 Balance -270 / -270 -175 / -175 -300 / -300 Lab / Micro Data Result Diagrams: 04/02/23 05:23 04/02/23 05:23 Labs: Laboratory Results - last 24 hr 04/01/23 20:40: POC Glucose 178 H 04/02/23 05:23: PT 16.2 H, INR 1.3 04/02/23 05:23: WBC 13.0 H, RBC 3.43 L, Hgb 10.2 L, Hct 30.9 L, MCV 90.1, MCH 29.7, MCHC 33.0, RDW Std Deviation 48.3 H, RDW Coeff of Meryl 14.7 H, Plt Count 282, MPV 9.3, Immature Gran % (Auto) 1.000 H, Neut % (Auto) 72.8 H, Lymph % (Auto) 12.9 L, [place] % (Auto) 11.0 H, Eos % (Auto) 2.1, Baso % (Auto) 0.2, Absolute Neuts (auto) 9.5 H, Absolute Lymphs (auto) 1.68, Nucleated RBC % 0 04/02/23 05:23: Sodium 136, Potassium 3.4 L, Chloride 101, Carbon Dioxide 29.0, Anion Gap 6, BUN 21 H, Creatinine 0.66, Estim Creat Clear Calc 42.39, Est GFR (MDRD) Af Amer 112, Est GFR (MDRD) Non-Af 92, BUN/Creatinine Ratio 31.9 H, Glu cose 167 H, Calcium 9.0 Rhythm Strip Rhythm Strip: A-fib Rate: 89 Ectopy: PVC(s) Physical Exam Const alert, oriented x3 and no apparent distress General Appearance: cooperative HEENT normocephalic, head/scalp atraumatic, moist oral mucous membranes and oropharynx normal Eyes PERRL and EOMs intact bilaterally Neck supple and no JVD Lymph Lymphatic: no lymphadenopathy noted and no lymphedema noted Resp normal respiratory effort, normal air movement and clear to auscultation bilaterally Cardio regular rate, regular rhythm, S1 normal heart sound, S2 normal heart sound and no murmurs Palpation: normal PMI GI normal to inspection, nondistended, normoactive bowel sounds, soft to palpation and non-tender Extremity normal capillary refill and no clubbing, cyanosis or edema Extremity Narrative: intact dressing over right hip Skin General Skin Exam: no breakdown Neuro CN's II-XII intact bilaterally, no focal motor deficits and no sensory deficits noted Motor Exam: strength 5/5 throughout Psych thought process normal, cooperative and affect normal Appearance: appropriate Assessment & Plan Assessment/Plan (1) Closed fracture of neck of right femur: PLAN: Plan #RIght closed femoral neck fracture * due to mechanical fall * right femur and pelvis imaging showed acute fracture of right femoral neck * she is POD 3 and is s/p right hip cemented hemiarthroplasty * orthopedic surgery on board * On p.o. oxycodone, p.o. Tylenol and IV morphine as needed. * * #Hypokalemia: resolved. Will monitor #Benign essential hypertension: IV hydralazine as needed. On p.o. blood pre ssure medications-losartan and Cardizem #A-fib: On Coumadin for A-fib. INR today is 1.3. on cardizem. Coumadin resumed yesterday #Hypomagnesemia: resolved. WIll monitor #Type 2 diabetes mellitus: A1c 6. Currently n.p.o. for surgery. Insulin sliding scale. Accu-Cheks every 6 hourly. DVT prophylaxis: coumadin. INR is subtherapeutic. Will give a dose of therapeutic Lovenox to bridge the coumadin Disposition: awaiting DC to [facility]. Awaiting precert. Charges/Coding Visit Charges Inpatient E&M: 12768 Subs Hosp L2
[2023-04-02] MEDS: 0.9% Saline Lock 10 ML Syringe IV ×2 (12:13→20:01)
[2023-04-02] MEDS: dilTIAZem 25 MG/5 ML Vial IV BOLUS (12:13)
[2023-04-02] MEDS: Enoxaparin 100 MG/ML Syringe SC (12:13)
[2023-04-02] MEDS: Acetaminophen 500 MG Tablet 1000 MG PO ×2 (13:56→20:04)
--- NOTE | 2023-04-02 16:11 | CASEMGMT ---
Sw presented to bedside, introduced self to patient and explained sw role during hospitalization. Sw asked patient if she has advanced directives in place. Patient reports that she is not sure and wanted to review documents. Sw provided patient with documents to review. Patient agreed to discuss option of completing them tomorrow. Sw to follow up with patient tomorrow regarding advanced directives. Mackenzie Duncan, INSIDE SALES ASSISTANT, TRANSPORTATION DEPARTMENT SUPERVISOR
[2023-04-02] MEDS: MELATONIN 3 MG TABLET PO (20:04)
[2023-04-02] MEDS: Nystatin Powder 15gm Bottle 1 APPLIC TOPICAL (20:07)
[2023-04-03 00:52] VITALS: BP 125/78; PULSE 103; RESP 18; TEMP 36.7; O2SAT 99
[2023-04-03 05:27] LABS: Absolute Neutrophil Count 8.6 X10^3/uL (2.0-7.7); Basophil# 0.05 X10^3/uL; Basophil% 0.4 % (0-1); Eosinophil# 0.19 X10^3/uL; Eosinophils% 1.6 % (0-5); Hematocrit 29.9 % (37-47); Hemoglobin 9.5 g/dL (12.0-15.0); Lymphocyte % 13.7 % (19-41); Mean Corp Hgb Conc 31.8 g/dL (32-36); Mean Corpuscular Volume 91.2 fL (81-99); Monocyte# 1.06 X10^3/uL; Monocyte% 9.1 % (0-10); NRBC Flagged by Analyzer 0 % (0-5); Neutrophil # 8.62 X10^3/uL (2.7-7.7); Neutrophil % 74.1 % (47-70); Platelet Count 313 K/mm3 (150-450); RBC Distribution Width CV 14.5 % (11.6-14.6); RBC Distribution Width SD 48.3 fl (35.1-43.9); Red Blood Count 3.28 M/mm3 (4.2-5.4); White Blood Count 11.7 K/mm3 (4.4-11.0)
[2023-04-03 05:40] LABS: International Normalized Ratio 1.3; Prothrombin Time (Protime)PT. 16.3 SECONDS (11.7-14.9)
[2023-04-03 05:54] LABS: Anion Gap 6 (5-15); BUN 21 mg/dL (7-18); BUN/Creat Ratio 34.5 RATIO (10-20); Calcium,Total 9.2 mg/dL (8.5-10.1); Chloride 102 mmol/L (98-107); Creatinine, Serum 0.61 mg/dL (0.55-1.02); EST Glomerular Filtration Rate 101 mL/min (>60); Est Glom Filt Rate - Afr Amer 122 mL/min (>60); Estimated Creatinine Clearance 42.39 ml/min; Glucose 161 mg/dL (74-106); Potassium 3.9 mmol/L (3.5-5.1); Sodium Level 136 mmol/L (136-145)
[2023-04-03 06:50] VITALS: BP 129/70; PULSE 98; RESP 20; TEMP 37.4; O2SAT 96
[2023-04-03] MEDS: Acetaminophen 500 MG Tablet 1000 MG PO ×3 (06:59→20:42)
[2023-04-03] MEDS: Glycerin/Hypromellose/PEG400 15 ml Bottle 1 DRP EACH EYE ×4 (09:56→20:37)
[2023-04-03] MEDS: Losartan Potassium 100 MG Tablet PO (09:56)
[2023-04-03] MEDS: dilTIAZem CD 240 MG Capsule PO (09:56)
[2023-04-03] MEDS: DULoxetine Hcl 30 MG Capsule PO (09:56)
[2023-04-03] MEDS: Menthol/Lanolin/Calamine/Znox 113 GM Tube 1 APPLIC TOPICAL ×2 (09:56→20:38)
[2023-04-03] MEDS: Furosemide 40 MG Tablet PO (09:57)
[2023-04-03] MEDS: Nystatin Powder 15gm Bottle 1 APPLIC TOPICAL ×2 (09:57→20:38)
[2023-04-03] MEDS: Multivitamin (Healthy Eyes) Capsule 1 CAP PO ×2 (09:57→20:40)
[2023-04-03] MEDS: Omega-3 Acid Ethyl Esters 1 GM Capsule PO (09:57)
[2023-04-03] MEDS: RisperiDONE 2 MG Tablet PO ×2 (09:58→20:40)
[2023-04-03] MEDS: Senna/Docusate Sodium 1 Tablet 2 TABLET PO ×2 (09:58→20:43)
[2023-04-03] MEDS: Pantoprazole Sodium 20 MG Tablet PO (09:58)
--- NOTE | 2023-04-03 10:07 | CASEMGMT ---
Social Work Pt does not have LW/POA on file here, did indicate upon admission her daughter is her POA. Daughter brought in the document and the paper copy is on the paper chart indicated daughter Loren is POA. NEETU Cordova
--- NOTE | 2023-04-03 10:12 | CASEMGMT ---
Social Work SNF would like to get precert so pt can return skilled. SW spoke w/daughter and let her know we are waiting for precert. NEETU Cordova
--- NOTE | 2023-04-03 10:55 | CASEMGMT ---
CORRIE called [facility] ([facility]) to see if they started pre-cert. CORRIE spoke with Vicky who said she did not start pre-cert and she needs the PT/OT information. CORRIE will fax information and Vicky will start the pre-cert. CORRIE faxed updated information to [facility]. Plan: d/c back to [facility] pending insurance authorization. Shruti ROBERTSON
[2023-04-03] MEDS: Enoxaparin 100 MG/ML Syringe SC ×2 (11:09→20:39)
[2023-04-03 12:44] VITALS: O2SAT 95
--- NOTE | 2023-04-03 12:45 | PCM.PROGNOTE ---
Subjective Subjective Patient seen and examined. She had no active complaints. She had an uneventful night. Review of systems is otherwise negative. She has remained hemodynamically stable. INR is subtherapeutic at 1.3 today. Objective Data Objective Data Vital Signs: Vital Signs Temp Pulse Resp BP Pulse Ox O2 Del Method O2 Flow Rate 99.4 F H 98 20 H 129/70 H 96 Room Air 2 04/03/23 06:50 04/03/23 06:50 04/03/23 06:50 04/03/23 06:50 04/03/23 06:50 04/03/23 10:15 03/30/23 23:35 Oxygen Flow Rate (L/min) 2 Oxygen Delivery Method Room Air Weight: 218 lb 7.649 oz Body Mass Index (BMI) 36.3 Intake & Output: Intake and Output for Last 24 Hours 04/01/23 04/02/23 04/03/23 23:59 23:59 23:59 Intake Total 650 / 650 600 / 600 Output Total 825 / 825 900 / 1100 450 / 450 Balance -175 / -175 -300 / -500 -450 / -450 Lab / Micro Data Result Diagrams: 04/03/23 04:21 04/03/23 04:21 Labs: Laboratory Results - last 24 hr 04/03/23 04:21: PT 16.3 H, INR 1.3 04/03/23 04:21: WBC 11.7 H, RBC 3.28 L, Hgb 9.5 L, Hct 29.9 L, MCV 91.2, MCH 29.0, MCHC 31.8 L, RDW Std Deviation 48.3 H, RDW Coeff of Meryl 14.5, Plt Count 313, MPV 10.0, Immature Gran % (Auto) 1.100 H, Neut % (Auto) 74.1 H, Lymph % (Auto) 13.7 L, [place] % (Auto) 9.1, Eos % (Auto) 1.6, Baso % (Auto) 0.4, Absolute Neuts (auto) 8.6 H, Absolute Lymphs (auto) 1.60, Nucleated RBC % 0 04/03/23 04:21: Sodium 136, Potassium 3.9, Chloride 102, Carbon Dioxide 28.0, Anion Gap 6, BUN 21 H, Creatinine 0.61, Estim Creat Clear Calc 42.39, Est GFR (MDRD) Af Amer 122, Est GFR (MDRD) Non-Af 101, BUN/Creatinine Ratio 34.5 H, Glucose 161 H, Calcium 9.2 Rhythm Strip Rhythm Strip: A-fib Rate: 89 Ectopy: PVC(s) Physical Exam Const alert, oriented x3 and no apparent distress General Appearance: cooperative HEENT normocephalic, head/scalp atraumatic, moist oral mucous membranes and oropharynx normal Eyes PERRL and EOMs intact bilaterally Neck supple and no JVD Lymph Lymphatic: no lymphadenopathy noted and no lymphedema noted Resp normal respiratory effort, normal air movement and clear to auscultation bilaterally Cardio regular rate, regular rhythm, S1 normal heart sound, S2 normal heart sound and no murmurs Palpation: normal PMI GI normal to inspection, nondistended, normoactive bowel sounds, soft to palpation and non-tender Extremity normal capillary refill and no clubbing, cyanosis or edema Skin General Skin Exam: no breakdown Neuro CN's II-XII intact bilaterally, no focal motor deficits and no sensory deficits noted Motor Exam: strength 5/5 throughout Psych thought process normal, cooperative and affect normal Appearance: appropriate Assessment & Plan Assessment/Plan (1) Closed fracture of neck of right femur: PLAN: Plan #RIght closed femoral neck fracture due to mechanical fall right femur and pelvis imaging showed acute fracture of right femoral neck she is POD 4 and is s/p right hip cemented hemiarthroplasty orthopedic surgery on board On p.o. oxycodone, p.o. Tylenol and IV morphine as needed. #Hypokalemia: resolved. #Benign essential hypertension: IV hydralazine as needed. On p.o. blood pressure medications-losartan and Cardizem #A-fib: On Coumadin for A-fib. INR today is 1.3. on cardizem. Coumadin resumed yesterday #Hypomagnesemia: resolved. WIll monitor #Type 2 diabetes mellitus: A1c 6. appears to be diet controlled. ISS. Accuchecks ACHS DVT prophylaxis: coumadin. INR is subtherapeutic. on therapeutic lovenox to bridge whilst INR is subtherapeutic Disposition: awaiting DC to [facility]. Awaiting precert. Charges/Coding Visit Charges Inpatient E&M: 97356 Subs Hosp L2
[2023-04-03 13:56] VITALS: BP 122/67; PULSE 105; RESP 18; TEMP 37.2; O2SAT 96
[2023-04-03 19:46] VITALS: BP 131/60; PULSE 115; RESP 16; TEMP 36.9; O2SAT 97
[2023-04-03 22:18] VITALS: BP 100/61; PULSE 97; RESP 18; TEMP 36.2; O2SAT 97
[2023-04-04 03:53] VITALS: BP 102/74; PULSE 84; RESP 18; TEMP 36.1; O2SAT 96
[2023-04-04] MEDS: Acetaminophen 500 MG Tablet 1000 MG PO ×2 (05:43→14:00)
[2023-04-04 06:47] LABS: Absolute Lymphocyte Count 2.05 X10^3/uL (0.83-4.51); Absolute Neutrophil Count 7.3 X10^3/uL (2.0-7.7); Basophil# 0.05 X10^3/uL; Basophil% 0.5 % (0-1); Eosinophils% 2.7 % (0-5); Hematocrit 32.7 % (37-47); Hemoglobin 10.3 g/dL (12.0-15.0); Lymphocyte # 2.05 X10^3/ul (0.83-4.51); Lymphocyte % 18.7 % (19-41); Mean Corp Hgb Conc 31.5 g/dL (32-36); Mean Corpuscular Hgb 28.7 pg (27.0-32.0); Mean Corpuscular Volume 91.1 fL (81-99); Mean Platelet Vol. 9.7 fl (6.2-12.0); Monocyte# 1.11 X10^3/uL; Monocyte% 10.1 % (0-10); NRBC Flagged by Analyzer 0 % (0-5); Neutrophil % 66.7 % (47-70); Platelet Count 320 K/mm3 (150-450); RBC Distribution Width CV 14.5 % (11.6-14.6); RBC Distribution Width SD 48.7 fl (35.1-43.9); Red Blood Count 3.59 M/mm3 (4.2-5.4)
[2023-04-04 07:21] LABS: Anion Gap 5 (5-15); BUN 22 mg/dL (7-18); BUN/Creat Ratio 35.1 RATIO (10-20); Calcium,Total 9.2 mg/dL (8.5-10.1); Chloride 102 mmol/L (98-107); Creatinine, Serum 0.63 mg/dL (0.55-1.02); EST Glomerular Filtration Rate 98 mL/min (>60); Est Glom Filt Rate - Afr Amer 118 mL/min (>60); Estimated Creatinine Clearance 42.39 ml/min; Glucose 164 mg/dL (74-106); Potassium 3.5 mmol/L (3.5-5.1); Sodium Level 137 mmol/L (136-145)
[2023-04-04 09:03] LABS: International Normalized Ratio 1.9; Prothrombin Time (Protime)PT. 21.7 SECONDS (11.7-14.9)
--- NOTE | 2023-04-04 09:11 | CASEMGMT ---
Discharge Planning Per Vicky at [facility], theo is still pending as of this morning. SW notified. Antionette Chavarria
[2023-04-04 11:10] VITALS: BP 146/81; PULSE 97; RESP 16; TEMP 37; O2SAT 94
[2023-04-04] MEDS: Glycerin/Hypromellose/PEG400 15 ml Bottle 1 DRP EACH EYE ×2 (11:11→17:44)
[2023-04-04] MEDS: Menthol/Lanolin/Calamine/Znox 113 GM Tube 1 APPLIC TOPICAL (11:13)
[2023-04-04] MEDS: Nystatin Powder 15gm Bottle 1 APPLIC TOPICAL (11:13)
[2023-04-04] MEDS: Losartan Potassium 100 MG Tablet PO (11:14)
[2023-04-04] MEDS: dilTIAZem CD 240 MG Capsule PO (11:14)
[2023-04-04] MEDS: Enoxaparin 100 MG/ML Syringe SC (11:15)
[2023-04-04] MEDS: Multivitamin (Healthy Eyes) Capsule 1 CAP PO (11:15)
[2023-04-04] MEDS: Furosemide 40 MG Tablet PO (11:15)
[2023-04-04] MEDS: Omega-3 Acid Ethyl Esters 1 GM Capsule PO (11:15)
[2023-04-04] MEDS: Pantoprazole Sodium 20 MG Tablet PO (11:15)
[2023-04-04] MEDS: DULoxetine Hcl 30 MG Capsule PO (11:15)
[2023-04-04] MEDS: RisperiDONE 2 MG Tablet PO (11:15)
[2023-04-04] MEDS: Senna/Docusate Sodium 1 Tablet 2 TABLET PO (11:16)
--- NOTE | 2023-04-04 13:09 | CASEMGMT ---
Patient was approved to go to [facility] skilled. SW notified physician, RN, and litigation legal secretary. Shruti ROBERTSON
--- NOTE | 2023-04-04 13:27 | TREXTCAR_ITS ---
Diet Diet Order/Speech Therapy: 04/02/23 12:32 Diet: Cardiac: Calorie-Controlled Food consistency:: Regular Liquid Consistency:: Regular/Thin Dietary Modifications:: Consistent Carbohydrate How many daily calories?: 1800 calorie Routine Orders/Code Status Enema Type: Fleetz Enema Frequency: Daily PRN Suppository Type: Dulcolax 10mg Suppository Frequency: Daily PRN O2 Frequency: PRN Keep PO Greater than or Equal to (%): 90 Wound(s) BUE, generalized abrasions: Wound Type: Abrasion RT HIP: Wound Type: Surgical Incision Therapies Weight Bearing: Non weight bearing Problem/Diagnosis (1) Closed fracture of neck of right femur: Status: Acute Code(s): S72.001A - Fracture of unspecified part of neck of right femur, initial encounter for closed fracture Plan #RIght closed femoral neck fracture * due to mechanical fall * right femur and pelvis imaging showed acute fracture of right femoral neck * she is POD 4 and is s/p right hip cemented hemiarthroplasty * orthopedic surgery on board * On p.o. oxycodone, p.o. Tylenol and IV morphine as needed. * * #Hypokalemia: resolved. #Benign essential hypertension: IV hydralazine as needed. On p.o. blood pressure medications-losartan and Cardizem #A-fib: On Coumadin for A-fib. INR today is 1.3. on cardizem. Coumadin resumed yesterday #Hypomagnesemia: resolved. WIll monitor #Type 2 diabetes mellitus: A1c 6. appears to be diet controlled. ISS. Accuchecks ACHS DVT prophylaxis: coumadin. INR is subtherapeutic. on therapeutic lovenox to bridge whilst INR is subtherapeutic Disposition: awaiting DC to [facility]. Awaiting precert. Allergies/Procedures Done in Hospital Allergies bismuth subsalicylate [From Pepto-Bismol] Allergy (Verified 03/29/23 16:38) NEEDS FOLLOW-UP Penicillins Allergy (Verified 05/23/14 20:30) Swelling shrimp Allergy (Verified 08/23/22 15:27) Angioedema sulfamethoxazole [From Bactrim] Allergy (Verified 03/29/23 16:38) NEEDS FOLLOW-UP trimethoprim [From Bactrim] Allergy (Verified 03/29/23 16:38) NEEDS FOLLOW-UP Procedures: None Type of Care/Length of Stay Estimated LOS: Convalescent Care Less Than 30 days Type of Care Needed: Skilled Rehab Potential: Fair Prognosis: Fair Additional Orders/Day of Discharge Day of Discharge: 04/04/23 Dietary and Speech Recommendations Dietitian Recommendations/Changes: Will adjust diet to 1800 calorie/consistent carbohydrate; cardiac. Will d/c glucerna shake w/ medpass. ONS only if PO fails at meals. Discharge Plan Admission Admit Date/Time: 03/29/23 19:41 Primary Reason for Your Visit: hip fracture Attending Provider: Claribel Ortega Primary Care Provider: Lionel Blanton Consulting Providers: Robin Wheeler ; Fabio Sena Instructions Patient Instructions: Hip Fx Surg Dc Discharge Orders/Prescriptions Prescriptions: Continued PreserVision AREDS-2 1 EACH capsule 1 ea PO BID Label Comments: SUPPLIMENT omeprazole 20 MG capsule 20 mg PO DAILY Label Comments: HEART BURN warfarin [Jantoven] 3 MG tablet 4 mg PO MOTUWETHFRSA Label Comments: BLOOD THINNER furosemide 40 MG tablet 40 mg PO DAILY Label Comments: WATER PILL acetaminophen 500 MG tablet 1,000 mg PO TID losartan 100 MG tablet 100 mg PO DAILY omega-3 fatty acids 1,000 mg Capsule 1,000 mg PO DAILY Artificial Tears(xr-qhnl-iyue) 1-0.2-0.2 % Drops 1 drp EACH EYE 4XD duloxetine 30 mg Capsule,Delayed Release(Dr/Ec) 30 mg PO DAILY Ocuvite with Lutein 300 mcg-200 mg-27 mg-2 mg Tablet 1 tab PO DAILY Rx Instructions: administer after a meal diltiazem HCl 180 MG capsule,extended release 24hr 240 mg PO DAILY Label Comments: HEART risperidone 0.5 MG tablet 2 mg PO BID Label Comments: MOOD/MENTAL DISORDERS Referrals / Follow Up: Lionel Blanton MD [Primary Care Provider] - Within 2 Weeks Fabio Sena MD [Med Staff - Active Staff] - Within 1 Week Disposition Disposition (needs filled in before D/C Order can be placed): Assisted Facility
--- NOTE | 2023-04-04 13:28 | DS.PCM_ITS ---
Providers Date of Admission: 03/29/23 Date of Discharge: 04/04/23 Primary Care Physician: Dr. Lionel Blanton MD Consultations 03/29/23 20:59 Consult: Orthopedics Routine Consulting Provider: Fabio Sena Reason for Consult: R femoral neck fracture EMERGENT Consult: No MD Notified: Yes Date Notified: 03/29/23 Time Notified: 20:01 Method of Notification: Verbal Reason For Visit: R FERMORAL NECK FRACTURE Diagnosis Discharge Diagnosis (1) Closed fracture of neck of right femur: Status: Acute Code(s): S72.001A - Fracture of unspecified part of neck of right femur, initial encounter for closed fracture Plan #RIght closed femoral neck fracture * due to mechanical fall * right femur and pelvis imaging showed acute fracture of right femoral neck * she is POD 4 and is s/p right hip cemented hemiarthroplasty * orthopedic surgery on board * On p.o. oxycodone, p.o. Tylenol and IV morphine as needed. * * #Hypokalemia: resolved. #Benign essential hypertension: IV hydralazine as needed. On p.o. blood pressure medications-losartan and Cardizem #A-fib: On Coumadin for A-fib. INR today is 1.3. on cardizem. Coumadin resumed yesterday #Hypomagnesemia: resolved. WIll monitor #Type 2 diabetes mellitus: A1c 6. appears to be diet controlled. ISS. Accuchecks ACHS DVT prophylaxis: coumadin. INR is subtherapeutic. on therapeutic lovenox to bridge whilst INR is subtherapeutic Disposition: awaiting DC to [facility]. Awaiting precert. Medications at Discharge Home Medications vit C 250 mg-vit E 90 mg-zinc 40 mg-copper 1 [id number]-qxlkwn capsule (PreserVision AREDS-2) 1 ea PO BID 05/23/14 omeprazole 20 mg capsule,delayed release 20 mg PO DAILY 06/15/14 furosemide 40 mg tablet 40 mg PO DAILY 11/20/14 warfarin 3 mg tablet (Jantoven) 4 mg PO MOTUWETHFRSA 11/20/14 acetaminophen 500 mg tablet 1,000 mg PO TID 05/14/17 losartan 100 mg tablet 100 mg PO DAILY 05/14/17 diltiazem HCl 180 mg capsule,extended release 24 hr 240 mg PO DAILY 03/29/23 duloxetine 30 mg capsule,delayed release 30 mg PO DAILY DEPRESSION 03/29/23 omega-3 fatty acids 1,000 mg capsule 1,000 mg PO DAILY SUPPLEMENT 03/29/23 peg [id number] 1 %-0.2 %-0.2 % eye drops (Artificial Tears ([id number])) 1 drp EACH EYE 4XD DRY EYE 03/29/23 risperidone 0.5 mg tablet 2 mg PO BID 03/29/23
--- NOTE | 2023-04-04 13:28 | PCM.DC.SUM ---
Providers Date of Admission: 03/29/23 Date of Discharge: 04/04/23 Primary Care Physician: Dr. Lionel Blanton MD Consultations 03/29/23 20:59 Consult: Orthopedics Routine Consulting Provider: Fabio Sena Reason for Consult: R femoral neck fracture EMERGENT Consult: No Notified: Yes Date Notified: 03/29/23 Time Notified: 20:01 Method of Notification: Verbal Reason For Visit: R FERMORAL NECK FRACTURE Diagnosis Discharge Diagnosis (1) Closed fracture of neck of right femur: Status: Acute Code(s): S72.001A - Fracture of unspecified part of neck of right femur, initial encounter for closed fracture Plan #RIght closed femoral neck fracture due to mechanical fall right femur and pelvis imaging showed acute fracture of right femoral neck she is POD 4 and is s/p right hip cemented hemiarthroplasty orthopedic surgery on board On p.o. oxycodone, p.o. Tylenol and IV morphine as needed. #Hypokalemia: resolved. #Benign essential hypertension: IV hydralazine as needed. On p.o. blood pressure medications-losartan and Cardizem #A-fib: On Coumadin for A-fib. INR today is 1.3. on cardizem. Coumadin resumed yesterday #Hypomagnesemia: resolved. WIll monitor #Type 2 diabetes mellitus: A1c 6. appears to be diet controlled. ISS. Accuchecks ACHS DVT prophylaxis: coumadin. INR is subtherapeutic. on therapeutic lovenox to bridge whilst INR is subtherapeutic Disposition: awaiting DC to [facility]. Awaiting precert. Medications at Discharge Home Medications vit C 250 mg-vit E 90 mg-zinc 40 mg-copper 1 [id number]-uryvwz capsule (PreserVision AREDS-2) 1 ea PO BID 05/23/14 omeprazole 20 mg capsule,delayed release 20 mg PO DAILY 06/15/14 furosemide 40 mg tablet 40 mg PO DAILY 11/20/14 warfarin 3 mg tablet (Jantoven) 4 mg PO MOTUWETHFRSA 11/20/14 acetaminophen 500 mg tablet 1,000 mg PO TID 05/14/17 losartan 100 mg tablet 100 mg PO DAILY 05/14/17 diltiazem HCl 180 mg capsule,extended release 24 hr 240 mg PO DAILY 03/29/23 duloxetine 30 mg capsule,delayed release 30 mg PO DAILY DEPRESSION 03/29/23 omega-3 fatty acids 1,000 mg capsule 1,000 mg PO DAILY SUPPLEMENT 03/29/23 peg [id number] 1 %-0.2 %-0.2 % eye drops (Artificial Tears ([id number])) 1 drp EACH EYE 4XD DRY EYE 03/29/23 risperidone 0.5 mg tablet 2 mg PO BID 03/29/23 vit A 300 mcg-C 200 mg-E 27 mg-lutein 2 mg and minerals tablet (Ocuvite with Lutein) 1 tab PO DAILY SUPPLEMENT 03/29/23 Hospital Course Operations total hip replacement Procedures None Summary of Care Provided Minutes Spent on Discharge: 55 Hospital Course: Patient is a 77-year-old female with a past medical history as outlined was admitted through the ED from a long-term facility with a complaint of mechanical fall. She was in a wheelchair and she rolled off of the wheelchair and landed on her right side. She subsequently had severe headache, neck pain and right hip pain so she came into the ED where CT of the brain done showed no acute intracranial pathology. Imaging of the hip showed right femoral neck fracture. She was admitted to be managed for right femoral neck fracture due to mechanical fall. Orthopedic surgery was consulted. She had right hip cemented hemiarthroplasty by orthopedic surgery on 03/30/2023. Postop course was uncomplicated and she remained stable. Pain was well controlled. She was given subcu Lovenox therapeutic to bridge whilst her INR was subtherapeutic and she was started back on her Coumadin. At time of discharge Coumadin was 1.9 and was nearly therapeutic. She was discharged to a long-term facility on 04/04/2023. She is to continue her Coumadin with a goal INR of 2-3. She is follow-up with her primary care doctor and follow-up with orthopedic surgeon outpatient basis. Patient seen and examined prior to discharge. She had no complaints and had an uneventful night. Review of systems otherwise negative. Labs and vitals reviewed. Home medication reviewed and reconciled. Physical Exam Const alert, oriented x3 and no apparent distress General Appearance: cooperative, comfortable and well kempt HEENT normocephalic, head/scalp atraumatic, hearing grossly normal bilaterally, moist oral mucous membranes and oropharynx normal Mouth: oral and palatal mucosa normal Eyes PERRL and EOMs intact bilaterally Neck no lymphadenopathy, supple and no JVD Lymph Lymphatic: no lymphadenopathy noted and no lymphedema noted Resp normal respiratory effort, normal air movement and clear to auscultation bilaterally Cardio regular rate, regular rhythm, S1 normal heart sound, S2 normal heart sound and no murmurs Palpation: normal PMI GI normal to inspection, nondistended, normoactive bowel sounds, soft to palpation and non-tender Extremity normal capillary refill and no clubbing, cyanosis or edema Extremity Narrative: intact dressing over right hip Skin no rashes or lesions noted General Skin Exam: no breakdown Neuro oriented x3, CN's II-XII intact bilaterally, no focal motor deficits and no sensory deficits noted Motor Exam: strength 5/5 throughout Psych thought process normal, cooperative and affect normal Appearance: appropriate Weight / BMI Weight Weight: 218 lb 7.649 oz Body Mass Index (BMI) 36.3 ABG / Lab / Microbiology Data Result Diagrams: 04/04/23 06:13 04/04/23 06:13 Laboratory: Laboratory Results - last 24 hr 04/04/23 06:13: WBC 11.0, RBC 3.59 L, Hgb 10.3 L, Hct 32.7 L, MCV 91.1, MCH 28.7, MCHC 31.5 L, RDW Std Deviation 48.7 H, RDW Coeff of Meryl 14.5, Plt Count 320, MPV 9.7, Immature Gran % (Auto) 1.300 H, Neut % (Auto) 66.7, Lymph % (Auto) 18.7 L, [place] % (Auto) 10.1 H, Eos % (Auto) 2.7, Baso % (Auto) 0.5, Absolute Neuts (auto) 7.3, Absolute Lymphs (auto) 2.05, Nucleated RBC % 0 04/04/23 06:13: Sodium 137, Potassium 3.5, Chloride 102, Carbon Dioxide 30.0, Anion Gap 5, BUN 22 H, Creatinine 0.63, Estim Creat Clear Calc 42.39, Est GFR (MDRD) Af Amer 118, Est GFR (MDRD) Non-Af 98, BUN/Creatinine Ratio 35.1 H, Glucose 164 H, Calcium 9.2 04/04/23 08:25: PT 21.7 H, INR 1.9 D/C Instructions Discharge Diet: Low fat / Low cholesterol Discharge Activity: Return to Normal Activity Weight Bearing Status: Weight bearing as tolerated Call your doctor if you observe: Fever of 101 or Higher, Shortness of breath, Dizziness, Swelling in the ankles and Chest pain Meaningful Use Info Meaningful Use Diagnoses (Choose all that apply): None applicable Discharge Plan Admission Admit Date/Time: 03/29/23 19:41 Primary Reason for Your Visit: hip fracture Attending Provider: Claribel Ortega Primary Care Provider: Lionel Blanton Consulting Providers: Robin Wheeler ; Fabio Sena Instructions Patient Instructions: Hip Fx Surg Dc Discharge Orders/Prescriptions Prescriptions: Continued PreserVision AREDS-2 1 EACH capsule 1 ea PO BID Label Comments: SUPPLIMENT omeprazole 20 MG capsule 20 mg PO DAILY Label Comments: HEART BURN warfarin [Jantoven] 3 MG tablet 4 mg PO MOTUWETHFRSA Label Comments: BLOOD THINNER furosemide 40 MG tablet 40 mg PO DAILY Label Comments: WATER PILL acetaminophen 500 MG tablet 1,000 mg PO TID losartan 100 MG tablet 100 mg PO DAILY omega-3 fatty acids 1,000 mg Capsule 1,000 mg PO DAILY Artificial Tears(ry-[id number]) 1-0.2-0.2 % Drops 1 drp EACH EYE 4XD duloxetine 30 mg Capsule,Delayed Release(Dr/Ec) 30 mg PO DAILY Ocuvite with Lutein 300 mcg-200 mg-27 mg-2 mg Tablet 1 tab PO DAILY Rx Instructions: administer after a meal diltiazem HCl 180 MG capsule,extended release 24hr 240 mg PO DAILY Label Comments: HEART risperidone 0.5 MG tablet 2 mg PO BID Label Comments: MOOD/MENTAL DISORDERS Referrals / Follow Up: Lionel Blanton MD [Primary Care Provider] - Within 2 Weeks Fabio Sena MD [Med Staff - Active Staff] - Within 1 Week Disposition Disposition (needs filled in before D/C Order can be placed): Care Home Facility Charges/Coding Visit Charges Inpatient E&M: 21265 Disch Hosp >30min
--- NOTE | 2023-04-04 13:38 | PHA.DC.MR ---
Pharmacy Service has performed discharge medication reconciliation for this patient. The patient's discharge medication list was reviewed for discrepancies and discrepancies were resolved. INR 1.9 Home Medications vit C 250 mg-vit E 90 mg-zinc 40 mg-copper 1 [id number]-kkkiux-delkjj capsule (PreserVision AREDS-2) 1 ea PO BID 05/23/14 omeprazole 20 mg capsule,delayed release 20 mg PO DAILY 06/15/14 furosemide 40 mg tablet 40 mg PO DAILY 11/20/14 warfarin 3 mg tablet (Jantoven) 4 mg PO MOTUWETHFRSA 11/20/14 acetaminophen 500 mg tablet 1,000 mg PO TID 05/14/17 losartan 100 mg tablet 100 mg PO DAILY 05/14/17 diltiazem HCl 180 mg capsule,extended release 24 hr 240 mg PO DAILY 03/29/23 duloxetine 30 mg capsule,delayed release 30 mg PO DAILY DEPRESSION 03/29/23 omega-3 fatty acids 1,000 mg capsule 1,000 mg PO DAILY SUPPLEMENT 03/29/23 peg [id number] 1 %-0.2 %-0.2 % eye drops (Artificial Tears ([id number])) 1 drp EACH EYE 4XD DRY EYE 03/29/23 risperidone 0.5 mg tablet 2 mg PO BID 03/29/23 vit A 300 mcg-C 200 mg-E 27 mg-lutein 2 mg and minerals tablet (Ocuvite with Lutein) 1 tab PO DAILY SUPPLEMENT 03/29/23
[2023-04-04 13:57] VITALS: BP 135/82; PULSE 92; RESP 16; TEMP 37.1; O2SAT 97
--- NOTE | 2023-04-04 15:17 | CASEMGMT ---
CORRIE called [facility] and arranged for patient to get picked up at 1630 via cot. CORRIE sent d/c orders, COVID test, and garbage pick up worker time to [facility] ([facility]) via [employer] and fax. CORRIE also spoke with Vicky at [facility]. CORRIE notified RN, psychiatric secretary, and patient's daughter. Plan: d/c back to [facility] under skilled level of care. [facility] will transport via cot. Shruti ROBERTSON
--- NOTE | 2023-04-04 16:50 | NURSING ---
Report called to [facility]
--- NOTE | 2023-04-04 17:17 | NURSING ---
I spoke with Willie with [facility] and he stated their crew is still 45min out from picking the pt up.
== END 2023-04-04 18:16 | DRG 522 ==
LOC: ED 19:24 → MS3 22:16 → PCU 03-31 18:59
PROVIDERS: Anesthesiology; Orthopaedic Surgery Sports Medicine; Admitting Provider Hospitalist; Emergency Provider Emergency Medicine; Visit Provider Student in an Organized Health Care Education/Training Program
PROC: 0SRR019 Replacement of Right Hip Joint, Femoral Surface with Metal Synthetic Substitute, Cemented, Open Approach (ICD-10-PCS; CPT 27125; principal; 2023-03-30 16:40)
DX: S72.001A Fracture of unspecified part of neck of right femur, initial encounter for closed fracture (principal); I48.20 Chronic atrial fibrillation, unspecified; E11.51 Type 2 diabetes mellitus with diabetic peripheral angiopathy without gangrene; F03.90 Unspecified dementia, unspecified severity, without behavioral disturbance, psychotic disturbance, mood disturbance, and anxiety; E87.6 Hypokalemia; I10 Essential (primary) hypertension; W05.0XXA Fall from non-moving wheelchair, initial encounter; E83.42 Hypomagnesemia; E66.9 Obesity, unspecified; Z68.38 Body mass index [BMI] 38.0-38.9, adult; Z99.3 Dependence on wheelchair; Z79.01 Long term (current) use of anticoagulants; Z79.899 Other long term (current) drug therapy; Z86.73 Personal history of transient ischemic attack (TIA), and cerebral infarction without residual deficits; Z79.891 Long term (current) use of opiate analgesic
CPT/HCPCS: 36415; 70450; 71045; 72125; 72170; 73502; 73552; 73562; 80048; 82306; 82962; 83036; 83735; 85025; 85610; 86850; 86900; 86901; 87426; 88305; 88311; 93005; 97110; 97162; 97166; 97530; 97535; 97802; 97803; 99285; C1776; A4216; J2405; J3490

== ENCOUNTER → 2023-04-12 | Outpatient (REF) | payer MEDICARE, MEDICAID, SELFPAY ==
[2023-04-12 08:53] LABS: INR Fingerstick 2.3; Prothrombin Time Fingerstick 24.6 SEC (11.7-14.9)
== END ==
LOC: OLS.WCC 05:00
PROVIDERS: Visit Provider Family Medicine
DX: I48.91 Unspecified atrial fibrillation (principal); Z79.01 Long term (current) use of anticoagulants; Z79.899 Other long term (current) drug therapy
CPT/HCPCS: 36416; 85610

== ENCOUNTER → 2023-05-28 | Outpatient (REF) | payer MEDICARE, MEDICAID, SELFPAY ==
[2023-05-28 08:47] LABS: INR Fingerstick 2.7; Prothrombin Time Fingerstick 29.4 SEC (11.7-14.9)
== END ==
LOC: OLS.WCC 04:00
PROVIDERS: Referring Provider Family Medicine; Visit Provider Family Medicine
DX: I48.91 Unspecified atrial fibrillation (principal); Z79.01 Long term (current) use of anticoagulants
CPT/HCPCS: 36416; 85610

== ENCOUNTER → 2023-06-04 | Outpatient (REF) | payer MEDICARE, MEDICAID, SELFPAY ==
[2023-06-04 09:06] LABS: Hematocrit 36.6 % (37-47); Hemoglobin 11.7 g/dL (12.0-15.0); Mean Corpuscular Hgb 28.3 pg (27.0-32.0); Mean Corpuscular Volume 88.4 fL (81-99); Mean Platelet Vol. 9.6 fl (6.2-12.0); Platelet Count 345 K/mm3 (150-450); RBC Distribution Width CV 15.8 % (11.6-14.6); RBC Distribution Width SD 51.1 fl (35.1-43.9); Red Blood Count 4.14 M/mm3 (4.2-5.4); White Blood Count 7.9 K/mm3 (4.4-11.0)
[2023-06-04 09:38] LABS: Anion Gap 7 (5-15); BUN 16 mg/dL (7-18); BUN/Creat Ratio 26.7 RATIO (10-20); Calcium,Total 8.8 mg/dL (8.5-10.1); Chloride 102 mmol/L (98-107); EST Glomerular Filtration Rate 103 mL/min (>60); Est Glom Filt Rate - Afr Amer 125 mL/min (>60); Glucose 139 mg/dL (74-106); Potassium 3.1 mmol/L (3.5-5.1); Sodium Level 138 mmol/L (136-145); T4 Free Direct 1.12 ng/dL (0.76-1.46); Thyroid Stim Hormone (TSH) 1.47 uIU/mL (0.358-3.74)
[2023-06-04 10:01] LABS: Hemoglobin A1c 5.9 % (3.8-5.6)
== END ==
LOC: OLS.WCC 04:00
PROVIDERS: Referring Provider Family Medicine; Visit Provider Family Medicine
DX: I48.91 Unspecified atrial fibrillation (principal); F03.90 Unspecified dementia, unspecified severity, without behavioral disturbance, psychotic disturbance, mood disturbance, and anxiety; E11.9 Type 2 diabetes mellitus without complications; R53.83 Other fatigue; I10 Essential (primary) hypertension; Z79.899 Other long term (current) drug therapy
CPT/HCPCS: 36415; 80048; 83036; 84439; 84443; 85027

== ENCOUNTER → 2023-06-26 | Outpatient (REF) | payer MEDICARE, MEDICAID, SELFPAY ==
[2023-06-26 10:17] LABS: INR Fingerstick 2.1; Prothrombin Time Fingerstick 22.8 SEC (11.7-14.9)
== END ==
LOC: OLS.WCC 04:00
PROVIDERS: Referring Provider Family Medicine; Visit Provider Family Medicine
DX: I48.91 Unspecified atrial fibrillation (principal); Z79.899 Other long term (current) drug therapy; Z79.01 Long term (current) use of anticoagulants
CPT/HCPCS: 36416; 85610

== ENCOUNTER → 2023-07-30 | Outpatient (REF) | payer MEDICARE, MEDICAID, SELFPAY ==
[2023-07-30 08:46] LABS: Absolute Lymphocyte Count 2.29 X10^3/uL (0.83-4.51); Absolute Neutrophil Count 8.3 X10^3/uL (2.0-7.7); Basophil# 0.05 X10^3/uL; Basophil% 0.4 % (0-1); Eosinophils% 1.7 % (0-5); Hematocrit 37.7 % (37-47); Hemoglobin 12.1 g/dL (12.0-15.0); Lymphocyte # 2.29 X10^3/ul (0.83-4.51); Lymphocyte % 19.5 % (19-41); Mean Corp Hgb Conc 32.1 g/dL (32-36); Mean Corpuscular Hgb 29.5 pg (27.0-32.0); Mean Platelet Vol. 10.1 fl (6.2-12.0); Monocyte# 0.81 X10^3/uL; Monocyte% 6.9 % (0-10); NRBC Flagged by Analyzer 0 % (0-5); Neutrophil # 8.28 X10^3/uL (2.7-7.7); Neutrophil % 70.6 % (47-70); Platelet Count 339 K/mm3 (150-450); RBC Distribution Width CV 14.9 % (11.6-14.6); RBC Distribution Width SD 50.5 fl (35.1-43.9); White Blood Count 11.7 K/mm3 (4.4-11.0)
[2023-07-30 09:21] LABS: International Normalized Ratio 2.9; Prothrombin Time (Protime)PT. 30.7 SECONDS (11.7-14.9)
[2023-07-30 09:43] LABS: Anion Gap 10 (5-15); BUN 24 mg/dL (7-18); Calcium,Total 9.3 mg/dL (8.5-10.1); Chloride 107 mmol/L (98-107); EST Glomerular Filtration Rate 74 mL/min (>60); Est Glom Filt Rate - Afr Amer 89 mL/min (>60); Glucose 144 mg/dL (74-106); Potassium 2.4 mmol/L (3.5-5.1); Sodium Level 142 mmol/L (136-145)
== END ==
LOC: OLS.WCC 05:00
PROVIDERS: Visit Provider Family Medicine
DX: I48.91 Unspecified atrial fibrillation (principal); E11.9 Type 2 diabetes mellitus without complications; I10 Essential (primary) hypertension; Z79.899 Other long term (current) drug therapy; Z79.01 Long term (current) use of anticoagulants
CPT/HCPCS: 36415; 80048; 85025; 85610

== ENCOUNTER → 2023-08-01 | Outpatient (REF) | payer MEDICARE, MEDICAID, SELFPAY ==
[2023-08-01 08:42] LABS: Anion Gap 4 (5-15); BUN 15 mg/dL (7-18); BUN/Creat Ratio 27.7 RATIO (10-20); Calcium,Total 8.2 mg/dL (8.5-10.1); Chloride 118 mmol/L (98-107); Creatinine, Serum 0.54 mg/dL (0.55-1.02); EST Glomerular Filtration Rate 116 mL/min (>60); Est Glom Filt Rate - Afr Amer 140 mL/min (>60); Glucose 149 mg/dL (74-106); Potassium 4.2 mmol/L (3.5-5.1); Sodium Level 145 mmol/L (136-145)
== END ==
LOC: OLS.WCC 05:00
PROVIDERS: Visit Provider Family Medicine
DX: Z79.899 Other long term (current) drug therapy (principal)
CPT/HCPCS: 36415; 80048